=== PATIENT | female | born 1990 | race Caucasian/White ===

== ENCOUNTER 2024-07-14 16:27 | Observation (INO) | payer MEDICAID, SELFPAY ==
[2024-07-14] VITALS (8 sets, daily range): BP systolic 127–141; BP diastolic 72–92; PULSE 107–132; RESP 12–24; TEMP 36.6–39.5; O2SAT 94–100; BMI 23.5; BMI 22.4
--- NOTE | 2024-07-14 17:12 | EKG12_ITS ---
Test Reason : Blood Pressure : */* mmHG Vent. Rate : 109 BPM Atrial Rate : 109 BPM P-R Int : 130 ms QRS Dur : 92 ms QT Int : 320 ms P-R-T Axes : 37 45 34 degrees QTcB Int : 430 ms Sinus tachycardia Otherwise normal ECG Confirmed by CARLOS LANG, ELAN ([id number]), continuity editor LUKAS OROZCO ([id number]) on 07/15/2024 9:46:14 AM Referred By: Confirmed By: ELAN GONZALEZ MD
--- NOTE | 2024-07-14 17:12 | EX.ED.DYSGE1 ---
HPI History of Present Illness Chief Complaint: General Illness Informant: patient and parent Narrative Narrative: Presents here with father 1 week cough over the last 2 weeks symptoms worsening with exertional dyspnea. No fevers. History of anemia she reports hospitalized 18 months ago in [place] is given blood however did not follow-up. No history endoscopies. She is on iron supplements by her PCP. No urinary symptoms. No recent travel, surgeries, immobilizations. No history of PE or DVT. Denies nausea or vomiting.Denies any chest tightness with ambulation. Denies any leg pains recently. Does report history of hypothyroidism however is not taking her medications in a few months. Denies any black or bloody stools. Patient has not had a menstrual period in a year. She has the Mirena. Prior similar symptoms: No PFSH PFSH Medical History Anemia Hypertension Home Medications ?Medication ?Instructions ?Recorded ?Last Taken ?Type chlorpheniramine-pseudoephedrine 2 10 ml PO Q6H 07/14/24 07/14/24 History mg-30 mg/5 mL oral liquid (LoHist - D) ferrous sulfate 325 mg (65 mg 325 mg PO BID 07/14/24 Unknown History iron) tablet (FeroSul) Allergy/AdvReac Type Severity Reaction Status Date / Time No Known Allergies Allergy Verified 07/14/24 21:06 Surgical History History of appendectomy Social History Smoking Status: Current some day smoker tobacco type: cigarettes ROS ROS ED Constitutional Constitutional ED: Denies chills, fever(s) or sweats ENT ENT ED: Denies sore throat Cardiovascular Cardiovascular: Denies chest pain, leg edema, palpitations or racing heartbeat Respiratory/Chest Respiratory/Chest: Reports cough, dyspnea and dyspnea on exertion Gastrointestinal Gastrointestinal: Denies abdominal pain, diarrhea, nausea or vomiting Genitourinary Genitourinary ED: Denies dysuria, hematuria or urinary frequency Musculoskeletal Musculoskeletal: Denies back pain, extremity pain or neck pain Integumentary Denies rash or wounds Neurologic Neurologic: Denies headache(s), paresthesias or weakness EXAM Physical Exam Const Vital Signs: 07/14/24 16:27 07/14/24 16:57 07/14/24 18:27 Temperature 98.7 F Temperature Source Oral Pulse Rate 132 H 123 H Respiratory Rate 16 12 Respiratory Effort Normal Respiratory Pattern Normal Blood Pressure 139/92 H 141/91 H Blood Pressure Mean 107 107 Blood Pressure Source Blood Pressure Position Blood Pressure Location Pulse Ox 98 97 Oxygen Delivery Method Room Air Room Air 07/14/24 20:04 07/14/24 20:05 07/14/24 20:51 Temperature 97.8 F 103.1 F H Temperature Source Oral Pulse Rate 115 H 114 H 117 H Respiratory Rate 24 H 24 H 18 Respiratory Effort Respiratory Pattern Blood Pressure 132/76 H 133/76 H 136/80 H Blood Pressure Mean 94 95 98 Blood Pressure Source Monitor Blood Pressure Position Supine Blood Pressure Location Right Arm Pulse Ox 100 100 96 Oxygen Delivery Method Room Air Room Air Positive well nourished and well developed General Appearance ED: well developed and NAD HEENT Reports moist mucous membranes normocephalic and atraumatic Eyes General Eye ED: Yes normal appearance of both eyes and pale conjunctiva Neck full ROM Chest Wall Chest: Negative for tenderness Resp normal respiratory effort and normal air movement Effort and Inspection: symmetric chest movement; Negative for respiratory distress Cardio regular rhythm and no murmurs Rate: tachycardic Peripheral Pulses: pulses 2+ throughout GI normal to inspection, nondistended, normoactive bowel sounds and non-tender Palpation: Negative for guarding or rebound tenderness present Extremity normal to inspection General Extremety ED: Negative for edema or tenderness General Extremity: Negative for edema Neuro oriented x3, CN's II-XII intact bilaterally and no sensory deficits noted Sensorium / Orientation: awake and alert Skin no rashes or lesions noted and no wounds MDM MDM MDM Narrative Medical decision making narrative: Interventions / MDM: Differential diagnosis: Symptomatic anemia, exertional dyspnea Diagnosis considered but do not suspect: N/A My EKG interpretation: Sinus rate of 109, no ST or T wave changes. Imaging independently reviewed and interpreted by myself: 1 view chest x-ray: No acute process. External documents reviewed: N/A Test considered but not ordered:N/A ED course: Tachycardic on arrival with exertional dyspnea. Increasing cough. No fevers or myalgias. Will check EKG labs including D-dimer and thyroid levels. 1840: Labs returned hemoglobin 5.0. Rectal exam no hemorrhoids no gross bleeding slight brown stools Hemoccult sent. BUN 6 creatinine 0.64. No menstrual period for last year. TSH less than 5 Free T41.7. D-dimer 2.16. However at this time with her anemia, is likely the cause of her tachycardia and dyspnea with exertion symptoms. Ordered for 1 view chest x-ray for screening. I ordered for 2 units of blood to be transfused. Consent obtained. I discussed with hospitalist, Dr. Soto for admission for symptomatic anemia. Secondary unclear findings on her anemia requested CT scan performed the ED. Perform CT chest abdomen pelvis with contrast for further evaluation. Patient admitted to PCU for further management. Prior to final read I reviewed the patient's imaging there is no PE however concern for bibasilar infiltrate this was relayed to hospitalist we will start antibiotics inpatient. She is on room air no distress. Re-evaluation: stable Disposition discussed with patient/family/significant other: Patient Case discussed with consulting clinician: Hospitalist This note was generated with [employer] dictation software. It may contain incorrect words, spelling, and punctuation that were not noted in checking the note before signing. Lab Data Attestation: I reviewed the patient's lab results. Labs: Laboratory Results - last 24 hr 07/14/24 07/14/24 07/14/24 12: 17:52 18:15 WBC 11.3 H RBC 3.07 L Hgb 5.0 L* Hct 20.4 L MCV 66.4 L MCH 16.3 L MCHC 24.5 L RDW Std Deviation 54.2 H RDW Coeff of Nya 23.9 H Plt Count 572 H MPV 9.1 Immature Gran % (Auto) 0.900 Neut % (Auto) 74.9 H Lymph % (Auto) 14.6 L [place] % (Auto) 7.5 Eos % (Auto) 1.7 Baso % (Auto) 0.4 Absolute Neuts (auto) 8.4 H Absolute Lymphs (auto) 1.64 Nucleated RBC % 0.4 Differential Comment SCANNED Diff Path Review May foll Polychromasia 1+ Anisocytosis 2+ Microcytosis RARE Spherocytes RARE H Tear Drop Cells RARE Ovalocytes 1+ PT 14.5 INR 1.1 APTT 29.2 D-Dimer Quant (PE/DVT) 2.16 H* Sodium 139 Potassium 4.2 Chloride 111 H Carbon Dioxide 24.0 Anion Gap 5 BUN 6 L Creatinine 0.64 Estim Creat Clear Calc 115.95 Est GFR (MDRD) Af Amer 138 Est GFR (MDRD) Non-Af 114 BUN/Creatinine Ratio 9.4 L Glucose 99 Calcium 8.5 Iron 14 L TIBC 383 Iron Saturation 3.7 L Ferritin 10 Total Bilirubin 0.30 AST 15 ALT 15 Alkaline Phosphatase 79 Total Protein 7.0 Albumin 2.5 L Globulin 4.5 H Albumin/Globulin Ratio 0.6 L Vitamin B12 740 Folate 15.90 TSH < 0.005 L Free T4 1.73 H Serum , Qual NEGATIVE Blood Type Cancelled Antibody Screen Cancelled Crossmatch 07/14/24 19:20 WBC RBC Hgb Hct MCV MCH MCHC RDW Std Deviation RDW Coeff of Nya Plt Count MPV Immature Gran % (Auto) Neut % (Auto) Lymph % (Auto) [place] % (Auto) Eos % (Auto) Baso % (Auto) Absolute Neuts (auto) Absolute Lymphs (auto) Nucleated RBC % Differential Comment Diff Path Review Polychromasia Anisocytosis Microcytosis Spherocytes Tear Drop Cells Ovalocytes PT INR APTT D-Dimer Quant (PE/DVT) Sodium Potassium Chloride Carbon Dioxide Anion Gap BUN Creatinine Estim Creat Clear Calc Est GFR (MDRD) Af Amer Est GFR (MDRD) Non-Af BUN/Creatinine Ratio Glucose Calcium Iron TIBC Iron Saturation Ferritin Total Bilirubin AST ALT Alkaline Phosphatase Total Protein Albumin Globulin Albumin/Globulin Ratio Vitamin B12 Folate TSH Free T4 Serum , Qual Blood Type A POSITIVE Antibody Screen NEGATIVE Crossmatch See Detail Radiography Diagnostic Testing: Clinical Impression(s) from Imaging Studies Chest X-Ray 07/14/24 18:54 IMPRESSION: No acute radiographic abnormalities. Electronically Signed: Pranav Jorgensen MD at 19:32 EST , Abdomen/Pelvis CT 07/14/24 19:48 IMPRESSION: Findings suspicious for small bowel obstruction with no obvious transition point. Infectious versus inflammatory enteritis. Acute left pyonephritis. Electronically Signed: Pranav Jorgensen MD at 20:47 EST , ADDENDUM: 07/14/241 IMPRESSION: Findings suspicious for small bowel obstruction with no obvious transition point. Infectious versus inflammatory enteritis. Acute left pyonephritis. N.B. : Nancy Ashley RN, confirmed on 07/14/2024 22:04:09 (ET) that the healthcare facility has received the radiology report. Electronically Signed: Pranav Jorgensen MD at 20:47 EST , Chest CTA 07/14/24 19:48 IMPRESSION: Bibasilar pneumonia. Electronically Signed: Pranav Jorgensen MD at 20:43 EST , Discharge Plan Dx/Rx/DC Orders Clinical Impression: Severe anemia, Hyperthyroidism, Bilateral pneumonia, Symptomatic anemia Disposition Disposition: Acute Care Hospital [facility] Discharge Date/Time: 07/14/24 20:40
[2024-07-14 18:00] LABS: Absolute Lymphocyte Count 1.64 X10^3/uL (0.83-4.51); Absolute Neutrophil Count 8.4 X10^3/uL (2.0-7.7); Basophil# 0.04 X10^3/uL; Basophil% 0.4 % (0-1); Eosinophil# 0.19 X10^3/uL; Eosinophils% 1.7 % (0-5); Hematocrit 20.4 % (37-47); Lymphocyte # 1.64 X10^3/ul (0.83-4.51); Lymphocyte % 14.6 % (19-41); Mean Corp Hgb Conc 24.5 g/dL (32-36); Mean Corpuscular Hgb 16.3 pg (27.0-32.0); Mean Corpuscular Volume 66.4 fL (81-99); Mean Platelet Vol. 9.1 fl (6.2-12.0); Monocyte# 0.85 X10^3/uL; Monocyte% 7.5 % (0-10); NRBC Flagged by Analyzer 0.4 % (0-5); Neutrophil # 8.44 X10^3/uL (2.7-7.7); Neutrophil % 74.9 % (47-70); POSITIVE COUNT YES; POSITIVE MORPHOLOGY YES; Platelet Count 572 K/mm3 (150-450); RBC Distribution Width CV 23.9 % (11.6-14.6); RBC Distribution Width SD 54.2 fl (35.1-43.9); Red Blood Count 3.07 M/mm3 (4.2-5.4); White Blood Count 11.3 K/mm3 (4.4-11.0)
[2024-07-14 18:09] LABS: Internal QC Validated? YES +Cl - CLEAR BKGD; Pregnancy, Serum, hCG Quali. NEGATIVE Negative
[2024-07-14 18:25] LABS: ALB/GLOB Ratio 0.6 RATIO (0.9-2.4); AST(SGOT) 15 U/L (15-37); Alanine Aminotransfer ALT/SGPT 15 U/L (13-56); Albumin, Serum 2.5 g/dL (3.2-5.0); Alkaline Phosphatase 79 U/L (45-117); Anion Gap 5 (5-15); BUN 6 mg/dL (7-18); BUN/Creat Ratio 9.4 RATIO (10-20); Calcium,Total 8.5 mg/dL (8.5-10.1); Chloride 111 mmol/L (98-107); Creatinine, Serum 0.64 mg/dL (0.55-1.02); EST Glomerular Filtration Rate 114 mL/min (>60); Est Glom Filt Rate - Afr Amer 138 mL/min (>60); Estimated Creatinine Clearance 115.95 ml/min; Free T4 1.73 ng/dL (0.76-1.46); Globulin 4.5 g/dL (2.2-4.2); Glucose 99 mg/dL (74-106); Potassium 4.2 mmol/L (3.5-5.1); Sodium Level 139 mmol/L (136-145); Thyroid Stim Hormone (TSH) < 0.005 uIU/mL (0.358-3.740)
[2024-07-14 18:26] LABS: Differential Indicated SCAN CRITERIA MET
[2024-07-14 18:45] LABS: D-Dimer Quantitative (DVT/PE) 2.16 FEU/ug/m (0.27-0.49)
--- NOTE | 2024-07-14 18:54 | RAD_ITS ---
INDICATION: dyspnea EXAMINATION/TECHNIQUE: X-RAY - XR Chest 1 View COMPARISON: None. FINDINGS: The lungs are clear. The cardiomediastinal silhouette is unremarkable. No pleural effusion or pneumothorax. No acute osseous abnormalities. RAD/Chest 1 View (Portable) IMPRESSION: No acute radiographic abnormalities. Electronically Signed: Pranav Jorgensen MD at 19:32 EST ,
[2024-07-14 18:56] LABS: International Normalized Ratio 1.1; Prothrombin Time (Protime)PT. 14.5 SECONDS (11.7-14.9)
[2024-07-14 18:57] LABS: Partial Thromboplast Time 29.2 Seconds (24.1-36.2)
[2024-07-14 19:17] LABS: Vitamin B12 740 pg/mL (211-911)
[2024-07-14 19:28] LABS: Ferritin 10 ng/mL (8-252); Iron 14 ug/dL (50-170); Iron Binding Capacity,Total 383 ug/dL (250-450); PERCENT IRON SATURATION 3.7 % (15.0-55.0)
[2024-07-14 19:31] LABS: Anisocytosis 2+; Differential Comment SCANNED; Ovalocyte 1+; Polychromasia 1+
[2024-07-14 19:33] LABS: Spherocyte RARE
[2024-07-14 19:36] LABS: Tear Drop Cell RARE
[2024-07-14 19:37] LABS: Microcytosis RARE
--- NOTE | 2024-07-14 19:45 | HP.PCM.HOS_ITS ---
HPI - General General Date of Admission: 07/14/24 Date of Service: 07/14/24 Chief Complaint: Worsening EASON x 2 Weeks. HPI Narrative MYLES VENEGAS, is a 34 F with a past medical history of hypothyroidism; not taking medications for the past few months, tobacco abuse, history of IVDA with heroin and methamphetamines with a history of viral hepatitis, history of Mirena IUD; still in place, history of appendectomy and chronic severe LORENA; with history of being transfused 2 units of PRBC's at [facility] ~18 months ago - but she never followed up who presents to [facility] ER complaining of worsening EASON. Ms. Venegas reports her acute symptoms began approximately 2 weeks prior to admission with increasing dyspnea on exertion. She was noted to be upset about having to have labs drawn so she was reluctant to participate in answering questions during the interview making her a suboptimal historian with her father in the room providing needed emotional support but also not providing additional information. She denies recent bleeding or traumatic injury. She denies a history of colonoscopy and said she has not seen her PCP in over a year. She also denies associated fever, chills, nausea, vomiting, chest pain, history of VTE, black/bloody stools, dysuria or hematuria but she does admit she has not had a period for over a year since her Mirena IUD was placed. In the ER she was noted to have laboratory evidence of Severe Anemia with a critically low hemoglobin of 5 g/dL present on admission in the setting of Chronic Severe LORENA with MCV of 66.4 fL and low iron saturation of 3.7% along with low iron level 4 ug/dL requiring transfusion of PRBC's and IV Venofer complicated by elevated d-dimer of 2.16 present on admission prompting CTA of the chest, abdomen and pelvis with subsequent CT evidence of Bibasilar Pneumonia and Pyelonephritis of the Left kidney compounded by Inflammatory vs Infectious Enteritis along with laboratory evidence of Hyperthyroidism; with undetectable TSH and FT4 of 1.73 ng/dL in the setting of known previous IVDA with Heroin and Methamphetamines plus Tobacco Abuse and she was then admitted to the PCU for ongoing care for a stay that is expected to extend beyond 2 midnights. [facility] Medical History Anemia Hypertension Home Medications ?Medication ?Instructions ?Recorded ?Last Taken ?Type chlorpheniramine-pseudoephedrine 2 10 ml PO Q6H 07/14/24 07/14/24 History mg-30 mg/5 mL oral liquid (LoHist - D) ferrous sulfate 325 mg (65 mg 325 mg PO BID 07/14/24 Unknown History iron) tablet (FeroSul) Allergy/AdvReac Type Severity Reaction Status Date / Time No Known Allergies Allergy Verified 07/14/24 21:06 Surgical History History of appendectomy Social History Smoking Status: Current some day smoker tobacco type: cigarettes ROS ROS Narrative Review of Systems: Constitutional: Patient admits to EASON and generalized weakness but she denies fever or chills. Eyes: Patient denies changes in vision or discharge from eyes. ENT: Patient denies runny nose, sore throat or ear pain. Resp: Patient admits to EASON but she denies cough. CV: Patient denies chest pain, palpitations or heart racing. GI: Patient denies abdominal pain, nausea, vomiting, diarrhea or constipation. : Patient denies dysuria or hematuria. MSK: Patient admits to generalized weakness but she denies arthralgias or myalgias. Skin: Patient admits to pallor but she denies rash, abscess or jaundice. Psych: Patient denies symptoms of uncontrolled depression or anxiety. Neuro: Patient denies headache, paresthesias or focal neurologic deficits. Allergy: Patient denies lip swelling, tongue swelling or urticaria. Hematology: Patient denies blood in stools or urine and claims her LMP was ~1 year ago. Endocrinology: Patient denies polyuria, polydipsia or polyphagia. 14 point ROS otherwise negative except for positives noted above in HPI. Vital Signs Vital Signs Vital Signs: 07/14/24 16:27 07/14/24 16:57 07/14/24 18:27 Temperature 98.7 F Temperature Source Oral Pulse Rate 132 H 123 H Respiratory Rate 16 12 Respiratory Effort Normal Respiratory Pattern Normal Blood Pressure 139/92 H 141/91 H Blood Pressure Mean 107 107 Pulse Ox 98 97 Oxygen Delivery Method Room Air Room Air Weight Weight: 145 lb 12.8 oz Body Mass Index (BMI) 23.5 Physical Exam Const alert, oriented x3, no apparent distress, average body habitus and healthy appearing General Appearance: cooperative HEENT normocephalic, head/scalp atraumatic, hearing grossly normal bilaterally and moist oral mucous membranes Eyes PERRL and EOMs intact bilaterally Neck no lymphadenopathy and supple Resp normal respiratory effort, no retractions, no use of accessory muscles and clear to auscultation bilaterally Cardio regular rate and regular rhythm GI normal to inspection, nondistended, normoactive bowel sounds, soft to palpation, non-tender and non-distended Extremity normal to inspection, full ROM and no clubbing, cyanosis or edema Skin Skin Narrative: Patient has no evidence of rash, abscess or jaundice. Neuro oriented x3, CN's II-XII intact bilaterally, moves all extremities and no focal motor deficits Sensorium / Orientation: awake, alert, oriented to person, oriented to place and oriented to time Speech: speech normal Psych affect normal Results Medical Records Data Attestation: I reviewed the patient's medical records Lab / Micro Data Attestation: I reviewed the patient's lab results. 07/15/24 05:23 07/15/24 05:23 Labs: Laboratory Results - last 24 hr 07/14/24 12:26: Blood Type Cancelled, Antibody Screen Cancelled 07/14/24 17:52: WBC 11.3 H, RBC 3.07 L, Hgb 5.0 L*, Hct 20.4 L, MCV 66.4 L, MCH 16.3 L, MCHC 24.5 L, RDW Std Deviation 54.2 H, RDW Coeff of Nya 23.9 H, Plt Count 572 H, MPV 9.1, Immature Gran % (Auto) 0.900, Neut % (Auto) 74.9 H, Lymph % (Auto) 14.6 L, [place] % (Auto) 7.5, Eos % (Auto) 1.7, Baso % (Auto) 0.4, A bsolute Neuts (auto) 8.4 H, Absolute Lymphs (auto) 1.64, Nucleated RBC % 0.4, Differential Comment SCANNED, Diff Path Review May foll, Polychromasia 1+, Anisocytosis 2+, Microcytosis RARE, Spherocytes RARE H, Tear Drop Cells RARE, Ovalocytes 1+, Sodium 139, Potassium 4.2, Chloride 111 H, Carbon Dioxide 24.0, Anion Gap 5, BUN 6 L, Creatinine 0.64, Estim Creat Clear Calc 115.95, Est GFR (MDRD) Af Amer 138, Est GFR (MDRD) Non-Af 114, BUN/Creatinine Ratio 9.4 L, Glucose 99, Calcium 8.5, Iron 14 L, TIBC 383, Iron Saturation 3.7 L, Ferritin 10, Total Bilirubin 0.30, AST 15, ALT 15, Alkaline Phosphatase 79, Total Protein 7.0, Albumin 2.5 L, Globulin 4.5 H, Albumin/Globulin Ratio 0.6 L, Vitamin B12 740, Folate 15.90, TSH < 0.005 L, Free T4 1.73 H, Serum , Qual NEGATIVE 07/14/24 18:15: PT 14.5, INR 1.1, APTT 29.2, D-Dimer Quant (PE/DVT) 2.16 H* Micro: Microbiology 07/14/24 18:41 Stool Stool Occult Blood (STU) - Final Imaging Radiology Impression Chest X-Ray 07/14/24 18:54 IMPRESSION: No acute radiographic abnormalities. Electronically Signed: Pranav Jorgensen MD at 19:32 EST , - [facility] Imaging Services [facility] [address] [place], [place] [id number] CTA Chest W/WO Contrast MR#: [id number] Acct: [id number] Name: MYLES VENEGAS Rep #: [id number] : 1990 F 34 From: Pranav Jorgensen MD PCP: Care Physician,No Primary Status: ADM IN Study: CTA Chest W/WO Contrast Date of Exam: 07/14/24 Exam# [id number] Ordering Dr: Vj Ruiz DO INDICATION: sob EXAMINATION: CTA Chest WO/W Contrast Injection TECHNIQUE: Helically acquired images were obtained of the chest following administration of IV contrast. A radiation dose optimization technique was used for this scan. 3D postprocessing images including MIPS were reviewed. IV Contrast dosage and agent: IV 100mL Isovue-370 COMPARISON: None. FINDINGS: Lungs: Bibasilar consolidations. Mediastinum: The cardiomediastinal silhouette is not enlarged. No mediastinal, hilar or axillary adenopathy. The thoracic aorta is unremarkable. No obvious filling defect seen within the visualized pulmonary arteries. Pleura: Unremarkable Bones/Soft tissues: Mild scattered degenerative changes of the visualized spine. Upper abdomen: Refer to CT abdomen pelvis report same date. CT/CTA Chest W/WO Contrast IMPRESSION: Bibasilar pneumonia. Electronically Signed: Pranav Jorgensen MD at 20:43 EST , - [facility] Imaging Services [address] [place] [id number] Abdomen/Pelvis W IV Cont ONLY MR#: [id number] Acct: [id number] Name: MYLES VENEGAS Rep #: [id number] : 1990 F 34 From: Pranav Jorgensen MD PCP: Care Physician,No Primary Status: ADM IN Study: Abdomen/Pelvis W IV Cont ONLY Date of Exam: 07/14/24 Exam# [id number] Ordering Dr: Vj Ruiz DO ACR Level 3 findings have been noted. An addendum which confirms receipt of the report will follow. INDICATION: anemia EXAMINATION: CT Abdomen And Pelvis W/ Contrast Injection TECHNIQUE: Helically acquired images were obtained of the abdomen and pelvis after IV contrast. A radiation dose optimization technique was used for this scan. IV Contrast dosage and agent: IV 100mL Isovue-370 Oral contrast: None. COMPARISON: None. FINDINGS: Visualized lung bases: Refer to CT chest report same date. Liver: Unremarkable Gallbladder: Unremarkable Spleen: Unremarkable Pancreas: Unremarkable Adrenal Glands: Unremarkable Kidneys: Striated nephrogram appearance of the left kidney. Vasculature: Unremarkable GI Tract: A few proximal small bowel loops demonstrate circumferential wall thickening with minimal surrounding fat stranding. There are multiple dilated loops of small bowel measuring up to 3.8 cm in diameter. No obvious transition point. Lymphadenopathy: None Peritoneum: No ascites. Bladder: Unremarkable Reproductive organs: Unremarkable Bones/Soft tissues: No suspicious osseous or soft tissue lesions CT/Abdomen/Pelvis W IV Cont ONLY IMPRESSION: Findings suspicious for small bowel obstruction with no obvious transition point. Infectious versus inflammatory enteritis. Acute left pyonephritis. Electronically Signed: Pranav Jorgensen MD at 20:47 EST , Assessment & Plan Assessment/Plan (1) Severe anemia: (2) History of iron deficiency anemia: (3) Bilateral pneumonia: QUALIFIERS: Lung location: lower lobe of lung Pneumonia type: due to unspecified organism Qualified Code(s): J18.9 - Pneumonia, unspecified organism (4) Pyelonephritis of left kidney: (5) Enteritis: (6) History of intravenous drug abuse: (7) Medical non-compliance: (8) Hyperthyroidism: (9) D-dimer, elevated: (10) Tobacco abuse: PLAN: Plan 1. Severe Anemia of 5 g/dL present on admission requiring transfusion - Admit to PCU. Give 2U PRBC's and then recheck CBC two hours after transfusion has been completed with goal to have hemoglobin of >7 g/dL. 2. Severe Chronic LORENA with MCV of 66.4 fL and low iron saturation of 3.7% and low iron level 4 ug/dL in the setting of previous admission to [facility] ~18 month ago when she was transfused with 2 units or PRBC's with patient subsequently not following up complicating #1 - Proceed with transfusion of 2 units of PRBC's noted above plus give IV iron with Venofer 200 mg IV once per protocol for severe iron deficiency. 3. Bibasilar Pneumonia evident on CTA of chest this admission consistent with suspected CAP compounding #1 & #2 - Start empiric IV Rocephin and IV Azithromycin and await culture and sensitivity data. Check urinary antigens for Streptococcus pneumonia and Legionella. Give Tylenol prn for [id number] (level 1-5/10) pain or fever. Give IV morphine prn for severe (level 6-10/10) pain. 4. Acute Pyelonephritis of the Left kidney evident on CTA abdomen and pelvis this admission medical complexity of #1 - #3 - Patient started on IV Rocephin for #3. Check UA C&S. 5. Acute Infectious vs. Inflammatory Enteritis evident on CTA of abdomen and pelvis this admission adding to the burden of disease outlined from #1 - #4 - Check stools studies to determine etiology and start enteric precautions until infectious cause ruled out. 6. History of IVDA with Heroin and Methamphetamines with history of Viral Hepatitis and labile emotional state and Medical Noncompliance - Patient did not admit to drug abuse but information was discovered in spite of the patient's and her father's deliberate omission. Check UDS to confirm suspicion of ongoing illicit drug use. We will watch for closely for signs and symptoms of withdrawal. Check HIV screen. Finally, we will check echocardiogram to evaluate for possible vegetations with her numerous simultaneous infections outlined from #1- #5. 7. Hyperthyroidism; evidenced by undetectable TSH and FT4 of 1.73 ng/dL adding to the pathology outlined from #1 - #6 - Check Thyroid Ultrasound to evaluate for pathologic lesions. Patient will likely need endocrinology consultation as outpatient. 8. Elevated d-dimer of 2.16 present on admission - CTA of chest this admission negative for PE but positive for bilateral pneumonia outlined in #3. 9. Tobacco Abuse - Tobacco Cessation will be strongly encouraged with Nicotine patch offered to control cravings. 10. History of appendectomy - Noted. 11. DVT prophylaxis - SCD's only with possible occult bleeding contributing to #1 & #2. Total time: Approximately (but not less than) 75 minutes. Charges/Coding Visit Charges Inpatient E&M: 30207 Init Hosp L3
--- NOTE | 2024-07-14 19:48 | CT_ITS ---
INDICATION: anemia EXAMINATION: CT Abdomen And Pelvis W/ Contrast Injection TECHNIQUE: Helically acquired images were obtained of the abdomen and pelvis after IV contrast. A radiation dose optimization technique was used for this scan. IV Contrast dosage and agent: IV 100mL Isovue-370 Oral contrast: None. COMPARISON: None. FINDINGS: Visualized lung bases: Refer to CT chest report same date. Liver: Unremarkable Gallbladder: Unremarkable Spleen: Unremarkable Pancreas: Unremarkable Adrenal Glands: Unremarkable Kidneys: Striated nephrogram appearance of the left kidney. Vasculature: Unremarkable GI Tract: A few proximal small bowel loops demonstrate circumferential wall thickening with minimal surrounding fat stranding. There are multiple dilated loops of small bowel measuring up to 3.8 cm in diameter. No obvious transition point. Lymphadenopathy: None Peritoneum: No ascites. Bladder: Unremarkable Reproductive organs: Unremarkable Bones/Soft tissues: No suspicious osseous or soft tissue lesions Bones/Soft tissues: No suspicious osseous or soft tissue lesions CT/Abdomen/Pelvis W IV Cont ONLY IMPRESSION: Findings suspicious for small bowel obstruction with no obvious transition point. Infectious versus inflammatory enteritis. Acute left pyonephritis. Electronically Signed: Pranav Jorgensen MD at 20:47 EST ,
--- NOTE | 2024-07-14 19:48 | CT_ITS ---
INDICATION: sob EXAMINATION: CTA Chest WO/W Contrast Injection TECHNIQUE: Helically acquired images were obtained of the chest following administration of IV contrast. A radiation dose optimization technique was used for this scan. 3D postprocessing images including MIPS were reviewed. IV Contrast dosage and agent: IV 100mL Isovue-370 COMPARISON: None. FINDINGS: Lungs: Bibasilar consolidations. Mediastinum: The cardiomediastinal silhouette is not enlarged. No mediastinal, hilar or axillary adenopathy. The thoracic aorta is unremarkable. No obvious filling defect seen within the visualized pulmonary arteries. Pleura: Unremarkable Bones/Soft tissues: Mild scattered degenerative changes of the visualized spine. Upper abdomen: Refer to CT abdomen pelvis report same date. CT/CTA Chest W/WO Contrast IMPRESSION: Bibasilar pneumonia. Electronically Signed: Pranav Jorgensen MD at 20:43 EST ,
--- NOTE | 2024-07-14 20:01 | US_ITS ---
STUDY: THYROID ULTRASOUND REASON FOR EXAM: Female, 34 years old. Hyperthyroid; evaluate for nodule or mass. TECHNIQUE: Ultrasound evaluation of the thyroid was performed with real-time and static harman-scale imaging. COMPARISON: CT of the chest 07/14/2024 FINDINGS: RIGHT LOBE: The right lobe of the thyroid gland measures 6.4 x 2.9 x 2.8 cm. There is a homogeneous echotexture. Nodule 1:53 x 26 x 25 mm mixed cystic and solid isoechoic wider than tall ill-defined marginated nodule with no echogenic foci (TR 3) occupying the entire right lobe for which ultrasound-guided biopsy is recommended. LEFT LOBE: The left lobe of the thyroid gland measures 5.6 x 1.4 x 1.4 cm. There is a homogeneous echotexture. Nodule 2:15 x 12 x 10 mm mixed cystic and solid isoechoic wider than tall smoothly marginated nodule with no echogenic foci (TR3) in the superior left lobe and follow-up ultrasound is recommended in 1 year. Nodule 3:10 x 11 x 7 mm solid hypoechoic wider than tall smoothly marginated nodule with no echogenic foci (TR 4) in the mid left lobe and follow-up ultrasound is recommended in 1 year. Nodule 4:14 x 6 x 7 mm solid hypoechoic wider than tall smoothly marginated nodule with no echogenic foci (TR 4) in the inferior left lobe and follow-up ultrasounds recommended one-year period ISTHMUS: The isthmus measures 2 mm thick. Nodule 5:30 x 28 x 15 mm solid isoechoic wider than tall ill-defined margin nodule and no echogenic foci (TR 3) in the right side of the isthmus and ultrasound-guided biopsy is recommended.. The regional lymph nodes are normal. US/Thyroid IMPRESSION: Multinodular thyroid gland. Ultrasound-guided biopsy of dominant nodules in the right lobe and right side of the isthmus is recommended. Follow-up ultrasound is recommended in 1 year. Electronically Signed: Harpreet Flood MD at 18:11 EST ,
[2024-07-14] MEDS: Acetaminophen 325 MG Tablet 650 MG PO (21:41)
[2024-07-14] MEDS: Pantoprazole Sodium 40 MG in 0.9% Normal Saline (100mL MB+) 100 ML 330 MG IV (22:41)
[2024-07-14 22:55] LABS: Lactic Acid 2.1 mmol/L (0.4-1.9)
[2024-07-14] MEDS: Lactobacillis Acidophilus 1 CAP PO (22:58)
[2024-07-14] MEDS: Ceftriaxone 1 GM/50 ML BAG IV (23:05)
[2024-07-15] VITALS (21 sets, daily range): BP systolic 112–138; BP diastolic 76–92; PULSE 90–105; RESP 15–22; TEMP 36.6–37.7; O2SAT 96–100; BMI 24.3
[2024-07-15] MEDS: Azithromycin 500 MG in 0.9% Normal Saline (250mL Bag) 250 ML 250 MG IV ×2 (00:01→10:06)
[2024-07-15] MEDS: 0.9% Normal Saline (1000mL) 1,000 ML 100 ML IV (00:04)
[2024-07-15] MEDS: DiphenhydrAMINE 12.5 MG/5 ML UDC PO ×4 (00:08→17:20)
--- NOTE | 2024-07-15 00:48 | ECHOD_ITS ---
Reason For Study: OTHER Procedure This was a 2D Doppler, Color Flow transthoracic echocardiogram. Exam performed portable in patient room. Left Ventricle Normal LV size. Left ventricular systolic function is normal. The left ventricular ejection fraction is 60 %. No regional wall motion abnormalities noted. Right Ventricle Normal RV size. Normal systolic function. Atria Normal left atrium. Normal right atrium. Mitral Valve Normal mitral valve. Tricuspid Valve Normal tricuspid valve. Mild tricuspid valve insufficiency. Aortic Valve Normal aortic valve. Pulmonic Valve Normal pulmonic valve. Great Vessels Normal aortic root. The pulmonary artery is normal size. Normal inferior vena cava. Pericardium/Pleural No pericardial effusion. MMode/2D Measurements & Calculations LVIDd: 4.6 cm IVSd: 1.1 cm LVOT diam: 2.2 cm LVIDs: 4.1 cm LVPWd: 1.4 cm LVOT area: 3.8 cm2 RVDd: 3.9 cm FS: 10.1 % LAV(MOD-bp): 65.6 ml LVAd ap4: 35.4 cm2 SV(MOD-sp4): 61.6 ml LAV(MOD-bp) Indexed: 37.1 ml/m2 LVLd ap4: 8.8 cm SI(MOD-sp4): 34.8 ml/m2 LAV(MOD-sp2): 87.6 ml EDV(MOD-sp4): 117.1 ml LAV(MOD-sp4): 47.2 ml EDV(sp4-el): 121.3 ml LVAs ap4: 22.2 cm2 LVLs ap4: 7.4 cm ESV(MOD-sp4): 55.5 ml ESV(sp4-el): 56.5 ml EF(MOD-sp4): 52.6 % EF(sp4-el): 53.4 % SV(sp4-el): 64.7 ml LA A4 area: 16.6 cm2 RA A4 area: 12.5 cm2 Time Measurements MV dec time: 0.12 sec Doppler Measurements & Calculations MV E max dominick: 135.7 cm/sec Lat Peak E' Dominick: 9.8 cm/sec Med Peak E' Dominick: 6.7 cm/sec MV A max dominick: 109.8 cm/sec E/E' lat: 13.8 E/E' med: 20.2 MV E/A: 1.2 MV V2 max: 133.4 cm/sec Ao V2 max: 176.7 cm/sec MV max P.1 mmHg MV dec slope: 1220 cm/sec2 Ao max P.5 mmHg MV V2 mean: 100.8 cm/sec Ao V2 mean: 124.2 cm/sec MV mean P.4 mmHg Ao mean P.9 mmHg MV V2 VTI: 31.9 cm Ao V2 VTI: 32.6 cm AV (velocity ratio): 0.84 MVA(VTI): 3.3 cm2 MARY BETH(I,D): 3.2 cm2 MARY BETH(V,D): 3.2 cm2 LV V1 max: 146.1 cm/sec SV(LVOT): 104.5 ml PA V2 max: 118.2 cm/sec LV V1 max P.5 mmHg PA V2 mean: 83.6 cm/sec LV V1 mean P.3 mmHg LV V1 mean: 110.3 cm/sec LV V1 VTI: 27.3 cm ECHO/Echo Complete Interpretation Summary Normal LV size. Left ventricular systolic function is normal. The left ventricular ejection fraction is 60 %. Structurally normal valves. Ordering Physician: Ike Valenzuela Referring Physician: VALENTIN PCP Performed By: Kira Tapia RCS
[2024-07-15 00:56] LABS: Bacteria 0 SEEN /hpf (None Seen); Mucous, Urine 0 SEEN /hpf (<or=2+); Red Blood Cells-Urine 0 SEEN /hpf (0-5); Squamous Epithelial Cells - UA 0 SEEN /hpf (5-10); White Blood Cells 0 SEEN /hpf (0-5)
[2024-07-15 00:59] LABS: Color, Urine Yellow (Yellow); Glucose, Dipstick Normal (Normal); Ketone-Dipstick Negative (Negative); Leukocyte Esterase-Dipstick Negative /ul (Negative); Nitrite-Dipstick Negative (Negative); Occult Blood-Urine Negative /ul (Negative); Protein-Dipstick Negative (Negative); Specific Gravity, Urine 1.005 (1.002-1.030); Urine Bilirubin Dipstick Negative (Negative); Urine Clarity Clear (Clear); Urine Urobilinogen Normal (Normal)
[2024-07-15 01:21] LABS: Amphetamine Urine NEGATIVE (<1000 ng/mL); Barbiturate Urine NEGATIVE (< 200 ng/mL); Benzodiazepine Urine NEGATIVE (< 200 ng/mL); Cocaine Urine NEGATIVE (< 300 ng/mL); Ecstacy Urine NEGATIVE (< 500 ng/mL); Methadone Urine NEGATIVE (< 300 ng/mL); Opiates Urine NEGATIVE (< 300 ng/mL); PCP Urine NEGATIVE (< 25 ng/mL); THC Urine POSITIVE (< 50 ng/mL); Vista UDS pH Range 7
[2024-07-15 02:32] LABS: Reflex Lactate? Y
[2024-07-15 03:31] LABS: Hepatitis C Antibody Preliminary Reactive (Nonreactive)
[2024-07-15] MEDS: Sodium Ferric Gluconat 250 MG in 0.9% Normal Saline 250 ML 135 MG IV (04:29)
[2024-07-15 05:36] LABS: Absolute Lymphocyte Count 1.63 X10^3/uL (0.83-4.51); Absolute Neutrophil Count 7.4 X10^3/uL (2.0-7.7); Basophil# 0.04 X10^3/uL; Basophil% 0.4 % (0-1); Eosinophil# 0.15 X10^3/uL; Eosinophils% 1.5 % (0-5); Hematocrit 24.1 % (37-47); Hemoglobin 6.7 g/dL (12.0-15.0); Lymphocyte # 1.63 X10^3/ul (0.83-4.51); Lymphocyte % 16.2 % (19-41); Mean Corp Hgb Conc 27.8 g/dL (32-36); Mean Corpuscular Hgb 19.1 pg (27.0-32.0); Mean Corpuscular Volume 68.9 fL (81-99); Mean Platelet Vol. 8.7 fl (6.2-12.0); Monocyte# 0.79 X10^3/uL; Monocyte% 7.8 % (0-10); NRBC Flagged by Analyzer 0.4 % (0-5); Neutrophil # 7.38 X10^3/uL (2.7-7.7); Neutrophil % 73.2 % (47-70); POSITIVE MORPHOLOGY YES; Platelet Count 482 K/mm3 (150-450); RBC Distribution Width CV 26.3 % (11.6-14.6); RBC Distribution Width SD 63.2 fl (35.1-43.9); White Blood Count 10.1 K/mm3 (4.4-11.0)
[2024-07-15 05:41] LABS: Differential Indicated SCAN CRITERIA MET
[2024-07-15 05:58] LABS: ALB/GLOB Ratio 0.5 RATIO (0.9-2.4); AST(SGOT) 7 U/L (15-37); Alanine Aminotransfer ALT/SGPT 12 U/L (13-56); Albumin, Serum 2.3 g/dL (3.2-5.0); Alkaline Phosphatase 76 U/L (45-117); Anion Gap 4 (5-15); BUN 3 mg/dL (7-18); BUN/Creat Ratio 5.7 RATIO (10-20); Calcium,Total 8.5 mg/dL (8.5-10.1); Chloride 112 mmol/L (98-107); Creatinine, Serum 0.52 mg/dL (0.55-1.02); EST Glomerular Filtration Rate 142 mL/min (>60); Est Glom Filt Rate - Afr Amer 171 mL/min (>60); Estimated Creatinine Clearance 142.71 ml/min; Globulin 4.4 g/dL (2.2-4.2); Glucose 163 mg/dL (74-106); Magnesium 1.7 mg/dL (1.6-2.6); Phosphorus 2.4 mg/dL (2.5-4.9); Potassium 3.4 mmol/L (3.5-5.1); Protein, Total 6.7 g/dL (6.4-8.2); Sodium Level 139 mmol/L (136-145)
[2024-07-15 06:08] LABS: Lactic Acid 2.6 mmol/L (0.4-1.9)
[2024-07-15 06:28] LABS: Anisocytosis RARE
[2024-07-15] MEDS: Zinc Sulfate 50 mg zinc (220 mg) ORAL capsule PO (09:12)
[2024-07-15] MEDS: Ascorbic Acid 500 MG Tablet 1000 MG PO ×2 (09:12→17:18)
[2024-07-15] MEDS: Cholecalciferol (Vit D3) 125 MCG CAPSULE (5,000 UNITS) PO (09:12)
[2024-07-15] MEDS: Ferrous Sulfate 325 MG Tablet PO ×2 (09:13→17:18)
[2024-07-15] MEDS: Lactobacillis Acidophilus 1 CAP PO ×4 (09:13→21:06)
[2024-07-15] MEDS: Pantoprazole Sodium 40 MG in 0.9% Normal Saline (100mL MB+) 100 ML 330 MG IV ×2 (09:14→21:05)
[2024-07-15] MEDS: Ceftriaxone 1 GM/50 ML BAG IV (09:54)
[2024-07-15] MEDS: Acetaminophen 325 MG Tablet 650 MG PO (10:08)
[2024-07-15 11:35] LABS: Pathologist Review Reviewed
[2024-07-15 13:09] LABS: Hematocrit 26.7 % (37-47); Hemoglobin 7.6 g/dL (12.0-15.0)
[2024-07-15] MEDS: Ensure Plus High Protein 120 ML LIQUID PO ×2 (13:17→17:18)
--- NOTE | 2024-07-15 15:05 | CASEMGMT ---
RN?CM?BLOCK SEALER?CM?to room to meet with patient for initial transition planning/care coordination?assessment.?RN?CM?introduced self and role at [facility].? Pt voices understanding and consents to?assessment?at this time.? Pt resting in bed in no distress at this time.? Father @ bedside and pt agreeable to him being present during assessment. Pt is A/O at this time and answers all questions appropriately.?? Care providers, pharmacy, and demographics verified/updated at this time. Strata: 1 PCP: No PCP. Pt states she knows how to go on website to look-up who is in network and plans to do this after discharge. She denies needing assistance w/this. Specialists: none Preferred [facility]acy: [facility] Insurance: [employer] Prescription Benefit:?yes Living Will/HPOA:?Pt does not currently have LW/HCPOA and declines info at this time.? Pt made aware that she can contact as an out-pt and make appt in the future if she decides she would like to talk with someone about this or would like to utilize [facility] social work for advanced directive completion.?? LNOK: Parents, Rick and Opal Living Arrangements: Lives w/her BF in one-story home w/2 steps to enter. Independent. Transportation:?Neither pt nor her BF drive. Friends and family assist w/transportation. Father will take her home @ dc. DME: ? Denies using any DME and denies needs. HHC/SNF: No hx of either. No needs identified. Pt wishes to return home and states has no concerns with going home at time of discharge.? PLAN:??Home Shayla YANGN?RN?CM
--- NOTE | 2024-07-15 15:10 | PN.HOSP_ITS ---
Reason for Visit Reason for Visit: Diagnoses Anemia, unspecified (07/14/24) Thyrotoxicosis, unspecified without thyrotoxic crisis or storm (07/14/24) Pneumonia, unspecified organism (07/14/24) Noninfective gastroenteritis and colitis, unspecified (07/14/24) Tubulo-interstitial nephritis, not specified as acute or chronic (07/14/24) Other specified abnormal findings of blood chemistry (07/14/24) Tobacco use (07/14/24) Personal history of diseases of the blood and blood-forming organs and certain disorders involving the immune mechanism (07/14/24) Personal history of other specified conditions (07/14/24) Patient's noncompliance with other medical treatment and regimen due to unspecified reason (07/14/24) Subjective Subjective Patient was seen and examined today, her sister was in the room at the time of my examination. Patient is noncompliant with follow-up concerning her chronic anemia, she states she is she went through a thorough workup and they could find no reason for the anemia. Patient denies any evidence of rectal bleeding. Patient's hemoglobin this afternoon was 7.6. She had received 3 units of packed red blood cells. Objective Data Objective Data Vital Signs: Vital Signs Temp Pulse Resp BP Pulse Ox O2 Del Method 98.7 F 94 16 125/85 H 99 Room Air 07/15/24 10:12 07/15/24 10:12 07/15/24 10:12 07/15/24 10:12 07/15/24 10:12 07/15/24 10:12 Oxygen Delivery Method Room Air Weight: 68.2 kg Body Mass Index (BMI) 24.3 Intake & Output: Intake and Output for Last 24 Hours 07/13/24 07/14/24 07/15/24 23:59 23:59 23:59 Intake Total 160 / 160 3920 / 3920 Output Total 1100 / 1100 Balance 160 / 160 2820 / 2820 Lab / Micro Data 07/15/24 12:59 07/15/24 05:23 Labs: Laboratory Results - last 24 hr 07/14/24 12:26: Blood Type Cancelled, Antibody Screen Cancelled 07/14/24 17:52: WBC 11.3 H, RBC 3.07 L, Hgb 5.0 L*, Hct 20.4 L, MCV 66.4 L, MCH 16.3 L, MCHC 24.5 L, RDW Std Deviation 54.2 H, RDW Coeff of Nya 23.9 H, Plt Count 572 H, MPV 9.1, Immature Gran % (Auto) 0.900, Neut % (Auto) 74.9 H, Lymph % (Auto) 14.6 L, Walsh % (Auto) 7.5, Eos % (Auto) 1.7, Baso % (Auto) 0.4, A bsolute Neuts (auto) 8.4 H, Absolute Lymphs (auto) 1.64, Nucleated RBC % 0.4, Differential Comment SCANNED, Diff Path Review Reviewed, Polychromasia 1+, Anisocytosis 2+, Microcytosis RARE, Spherocytes RARE H, Tear Drop Cells RARE, Ovalocytes 1+, Sodium 139, Potassium 4.2, Chloride 111 H, Carbon Dioxide 24.0, Anion Gap 5, BUN 6 L, Creatinine 0.64, Estim Creat Clear Calc 115.95, Est GFR (MDRD) Af Amer 138, Est GFR (MDRD) Non-Af 114, BUN/Creatinine Ratio 9.4 L, Glucose 99, Calcium 8.5, Iron 14 L, TIBC 383, Iron Saturation 3.7 L, Ferritin 10, Total Bilirubin 0.30, AST 15, ALT 15, Alkaline Phosphatase 79, Total Protein 7.0, Albumin 2.5 L, Globulin 4.5 H, Albumin/Globulin Ratio 0.6 L, Vitamin B12 740, Folate 15.90, TSH < 0.005 L, Free T4 1.73 H, Serum , Qual NEGATIVE 07/14/24 18:15: PT 14.5, INR 1.1, APTT 29.2, D-Dimer Quant (PE/DVT) 2.16 H* 07/14/24 19:20: Blood Type A POSITIVE, Antibody Screen NEGATIVE, Crossmatch See Detail 07/14/24 19:20: Crossmatch See Detail 07/14/24 22:15: Lactic Acid 2.1 H*, Hepatitis C Antibody Preliminary Reactive H 07/15/24 00:49: Urine Color Yellow, Urine Clarity Clear, Urine pH 7.0, Ur Specific Romayor 1.005, Urine Protein Negative, Urine Glucose (UA) Normal, Urine Ketones Negative, Urine Occult Blood Negative, Urine Nitrite Negative, Urine Bilirubin Negative, Urine Urobilinogen Normal, Ur Leukocyte Esterase Negative, Urine RBC 0 SEEN, Urine WBC 0 SEEN, Ur Squamous Epith Cells 0 SEEN, Urine Bacteria 0 SEEN, Urine Mucus 0 SEEN, Urine Opiates Screen NEGATIVE, Urine Methadone Screen NEGATIVE, Ur Barbiturates Screen NEGATIVE, Ur Phencyclidine Scrn NEGATIVE, Ur Amphetamines Screen NEGATIVE, MDMA (Ecstasy) Screen NEGATIVE, U Benzodiazepines Scrn NEGATIVE, Urine Cocaine Screen NEGATIVE, U Cannabinoids Screen POSITIVE H, Ur Drug Screen Comment 07/15/24 05:23: WBC 10.1, RBC 3.50 L, Hgb 6.7 L, Hct 24.1 L, MCV 68.9 L, MCH 19.1 L, MCHC 27.8 L D, RDW Std Deviation 63.2 H, RDW Coeff of Nya 26.3 H, Plt Count 482 H, MPV 8.7, Immature Gran % (Auto) 0.900, Neut % (Auto) 73.2 H, Lymph % (Auto) 16.2 L, Walsh % (Auto) 7.8, Eos % (Auto) 1.5, Baso % (Auto) 0.4, Absolute Neuts (auto) 7.4, Absolute Lymphs (auto) 1.63, Nucleated RBC % 0.4, Anisocytosis RARE, Sodium 139, Potassium 3.4 L, Chloride 112 H, Carbon Dioxide 23.0, Anion Gap 4 L, BUN 3 L, Creatinine 0.52 L, Estim Creat Clear Calc 142.71, Est GFR (MDRD) Af Amer 171, Est GFR (MDRD) Non-Af 142, BUN/Creatinine Ratio 5.7 L, Glucose 163 H, Lactic Acid 2.6 H*, Calcium 8.5, Phosphorus 2.4 L, Magnesium 1.7, Total Bilirubin 0.50, AST 7 L, ALT 12 L, Alkaline Phosphatase 76, Total Protein 6.7, Albumin 2.3 L, Globulin 4.4 H, Albumin/Globulin Ratio 0.5 L 07/15/24 12:59: Hgb 7.6 L, Hct 26.7 L Micro: Microbiology 07/15/24 00:49 Urine, Clean Catch Legionella Antigen - Final 07/15/24 00:49 Urine, Clean Catch Streptococcus pneumoniae Antigen (M - Final 07/14/24 18:41 Stool Stool Occult Blood (STU) - Final Radiography Diagnostic Testing: Radiology Impression Chest X-Ray 07/14/24 18:54 IMPRESSION: No acute radiographic abnormalities. Electronically Signed: Pranav Jorgensen MD at 19:32 EST Reading Location ID and State: [facility] / [place] Tel , Service support , Abdomen/Pelvis CT 07/14/24 19:48 IMPRESSION: Findings suspicious for small bowel obstruction with no obvious transition point. Infectious versus inflammatory enteritis. Acute left pyonephritis. Electronically Signed: Pranav Jorgensen MD at 20:47 EST Reading Location ID and State: [facility] / [place] Tel , Service support , ADDENDUM: 07/14/24 2211 IMPRESSION: Findings suspicious for small bowel obstruction with no obvious transition point. Infectious versus inflammatory enteritis. Acute left pyonephritis. N.B. : Nancy Ashley RN, confirmed on 07/14/2024 22:04:09 (ET) that the healthcare facility has received the radiology report. Electronically Signed: Pranav Jorgensen MD at 20:47 EST Reading Location ID and State: [facility] / [place] Tel , Service support , Chest CTA 07/14/24 19:48 IMPRESSION: Bibasilar pneumonia. Electronically Signed: Pranav Jorgensen MD at 20:43 EST , Echocardiogram 07/15/24 00:48 Interpretation Summary Normal LV size. Left ventricular systolic function is normal. The left ventricular ejection fraction is 60 %. Structurally normal valves. Ordering Physician: Ike Valenzuela Referring Physician: NO PCP Performed By: Kira Tapia RCS Physical Exam Const alert, oriented x3 and no apparent distress General Appearance: cooperative, well kempt and well developed Orientation / Consciousness: awake, oriented to person, oriented to place and oriented to time HEENT normocephalic, head/scalp atraumatic and moist oral mucous membranes Eyes PERRL, EOMs intact bilaterally and conjunctivae normal Neck supple, no JVD, thyroid normal and no carotid bruits General: trachea midline Resp normal respiratory effort, no retractions, no use of accessory muscles and clear to auscultation bilaterally Auscultation: Negative for rales, rhonchi or wheezes Cardio regular rate, regular rhythm, S1 normal heart sound, S2 normal heart sound, no murmurs, no rub and no gallops GI normal to inspection, nondistended, normoactive bowel sounds, soft to palpation, non-tender and non-distended Extremity no clubbing, cyanosis or edema Skin no rashes or lesions noted General Skin Exam: no breakdown Neuro oriented x3, CN's II-XII intact bilaterally, moves all extremities, no focal motor deficits and no sensory deficits noted Sensorium / Orientation: awake and alert Speech: speech normal Psych affect normal Assessment & Plan Assessment/Plan (1) Symptomatic anemia: PLAN: Plan 1. Chronic iron deficiency anemia-I will transfuse the patient 1 more unit of packed red blood cells, she will receive Venofir tomorrow, CBC will be rechecked tomorrow #2 pyelonephritis-patient will continue on IV antibiotics #3 bilateral atelectasis-I do not feel the patient has pneumonia #4 noncompliance with medical regimen-complicates care, management, recovery, and prognosis I do not feel patient has enteritis Total clinical time spent by myself addressing the patient's medical issues, reviewing all of her data, and collaborating with patient's care team: 35 minutes Charges/Coding Visit Charges Inpatient E&M: 31255 Subs Hosp L2
[2024-07-16] MEDS: DiphenhydrAMINE 12.5 MG/5 ML UDC PO ×2 (01:32→06:31)
[2024-07-16 03:00] VITALS: BP 136/72; PULSE 89; RESP 16; TEMP 36.6; O2SAT 96
[2024-07-16 03:18] VITALS: BMI 24.0
[2024-07-16 06:51] LABS: Absolute Lymphocyte Count 1.74 X10^3/uL (0.83-4.51); Absolute Neutrophil Count 7.6 X10^3/uL (2.0-7.7); Basophil# 0.06 X10^3/uL; Basophil% 0.6 % (0-1); Eosinophil# 0.26 X10^3/uL; Eosinophils% 2.4 % (0-5); Hematocrit 31.1 % (37-47); Lymphocyte # 1.74 X10^3/ul (0.83-4.51); Lymphocyte % 16.3 % (19-41); Mean Corp Hgb Conc 28.9 g/dL (32-36); Mean Corpuscular Hgb 21.2 pg (27.0-32.0); Mean Corpuscular Volume 73.3 fL (81-99); Mean Platelet Vol. 8.6 fl (6.2-12.0); Monocyte# 0.89 X10^3/uL; Monocyte% 8.3 % (0-10); NRBC Flagged by Analyzer 0.5 % (0-5); Neutrophil # 7.58 X10^3/uL (2.7-7.7); Neutrophil % 70.9 % (47-70); POSITIVE MORPHOLOGY YES; Platelet Count 486 K/mm3 (150-450); RBC Distribution Width CV 26.9 % (11.6-14.6); RBC Distribution Width SD 69.3 fl (35.1-43.9); Red Blood Count 4.24 M/mm3 (4.2-5.4); White Blood Count 10.7 K/mm3 (4.4-11.0)
[2024-07-16 07:03] LABS: Differential Indicated SCAN CRITERIA MET
[2024-07-16 07:08] LABS: Magnesium 1.8 mg/dL (1.6-2.6); Phosphorus 3.5 mg/dL (2.5-4.9)
[2024-07-16 07:46] VITALS: O2SAT 96
[2024-07-16 08:07] LABS: Anisocytosis 2+; Differential Comment SCANNED; Microcytosis 2+; Platelet Estimate SLT INC (ADEQ); Polychromasia 1+
[2024-07-16 08:08] LABS: Hypochromasia 2+; Ovalocyte 1+; Tear Drop Cell 1+
[2024-07-16 08:37] VITALS: BP 131/86; PULSE 88; RESP 16; TEMP 36.8; O2SAT 98
[2024-07-16] MEDS: Ferrous Sulfate 325 MG Tablet PO (08:39)
[2024-07-16] MEDS: Lactobacillis Acidophilus 1 CAP PO (08:40)
[2024-07-16] MEDS: Ascorbic Acid 500 MG Tablet 1000 MG PO (08:40)
[2024-07-16] MEDS: Zinc Sulfate 50 mg zinc (220 mg) ORAL capsule PO (08:42)
[2024-07-16] MEDS: Cholecalciferol (Vit D3) 125 MCG CAPSULE (5,000 UNITS) PO (08:42)
[2024-07-16] MEDS: Ensure Plus High Protein 120 ML LIQUID PO (08:46)
[2024-07-16] MEDS: 0.9% Saline Lock 10 ML Syringe IV ×2 (08:52→09:39)
[2024-07-16] MEDS: Ceftriaxone 1 GM/50 ML BAG IV (08:52)
[2024-07-16] MEDS: Pantoprazole Sodium 40 MG in 0.9% Normal Saline (100mL MB+) 100 ML 330 MG IV (08:59)
[2024-07-16] MEDS: Azithromycin 500 MG in 0.9% Normal Saline (250mL Bag) 250 ML 250 MG IV (09:39)
--- NOTE | 2024-07-16 09:41 | DCINST_ITS ---
Discharge Instructions Diet Discharge Diet: No restrictions DC O2, CPAP, BIPAP needs Home O2 Discharge instructions: No Dressing / Incision Discharge Activity: Return to Normal Activity Weight Bearing Status: Full weight bearing Follow Up Care Test Results: Test results from this visit will be discussed in further detail at your follow- up appointment, if applicable. Discharge Plan Admission Admit Date/Time: 07/14/24 19:54 Primary Reason for Your Visit: Deficiency anemia, pyelonephritis Attending Provider: Ladarius Ryan Primary Care Provider: Care Physician,No Primary Consulting Providers: Ike Valenzuela Instructions Additional Instructions / Restrictions: You will need follow-up regarding the nodules in your thyroid, follow-up with your family physician concerning this Follow-up with a primary care physician in 2 to 3 weeks Discharge Orders/Prescriptions Prescriptions: New cefdinir 300 mg capsule 300 mg PO BID Qty: 14 0RF Continued ferrous sulfate [FeroSul] 325 mg (65 mg iron) tablet 325 mg PO BID LoHist - D 2-30 mg/5 mL liquid 10 ml PO Q6H Referrals / Follow Up: Care Physician,No Primary [Primary Care Provider] - Disposition Disposition (needs filled in before D/C Order can be placed): Home, Self Care
[2024-07-16 09:51] VITALS: BP 131/86; PULSE 88; RESP 16; TEMP 36.8; O2SAT 98
[2024-07-16] MEDS: Sodium Ferric Gluconat/Sucrose 250 MG in 0.9% Normal Saline (250mL Bag) 250 ML 135 MG IV (09:52)
--- NOTE | 2024-07-16 09:52 | DS.PCM_ITS ---
Providers Date of Admission: 07/14/24 Date of Discharge: 07/16/24 Primary Care Physician: Keesha Primary Care Phys Reason For Visit: Severe ABLA with hemoglobin of 5g/dL present Diagnosis Discharge Diagnosis (1) Symptomatic anemia: Status: Acute Code(s): D64.9 - Anemia, unspecified Plan 1. Chronic iron deficiency anemia-I will transfuse the patient 1 more unit of packed red blood cells, she will receive Venofir tomorrow, CBC will be rechecked tomorrow #2 pyelonephritis-patient will continue on IV antibiotics #3 bilateral atelectasis-I do not feel the patient has pneumonia #4 noncompliance with medical regimen-complicates care, management, recovery, and prognosis #5 thyroid nodules-likely multinodular goiter, patient will need follow-up as an outpatient concerning this I do not feel patient has enteritis Total clinical time spent by myself addressing the patient's medical issues, reviewing all of her data, and collaborating with patient's care team: 35 minutes Medications at Discharge Home Medications chlorpheniramine-pseudoephedrine 2 mg-30 mg/5 mL oral liquid (LoHist - D) 10 ml PO Q6H allergies 07/14/24 ferrous sulfate 325 mg (65 mg iron) tablet (FeroSul) 325 mg PO BID supplement 07/14/24 cefdinir 300 mg capsule 300 mg PO BID #14 caps 07/16/24 Hospital Course Operations None Procedures Blood transfusion Summary of Care Provided Minutes Spent on Discharge: 32 Hospital Course: This 34-year-old white female was seen in the emergency room at [facility] with complaints of generalized weakness and fatigue as well as exertional dyspnea. Patient has a history of iron deficiency anemia and does not follow-up with a physician on a regular basis. Patient had been transfused approximately 18 months prior while hospitalized in [facility], according to the patient, the etiology of her anemia was not determined. Patient was supposed to be taking iron supplements but she admitted to not taking them. Workup in the emergency room included a CBC which showed a white blood cell count of 11.3 and hemoglobin of 5, patient's D-dimer was elevated at 2.16, chemistry profile was unremarkable. Chest CTA was obtained which indicated a bibasilar pneumonia, however this examiner did not feel the patient had pneumonia-patient had no symptoms of pneumonia. CT of the abdomen pelvis was obtained, there were findings suspicious for small bowel obstruction and infectious versus inflammatory enteritis as well as acute left pyelonephritis. This examiner did not feel the patient had enteritis and she had no symptoms of bowel obstruction however. Patient was admitted to PCU, she underwent blood transfusion and IV iron administration, she was placed on IV antibiotics for pyelonephritis. Patient improved during her hospitalization, she was urged to follow-up with a PCP after discharge. On 07/16/2024, patient was seen and examined: On examination she appeared older than her stated age, she does not appear to be in any distress. Vital signs as documented. Skin warm and dry and without overt rashes. Neck without JVD, thyroid appears normal, trachea is midline, neck is supple. Lungs clear, normal air movement was noted. Heart exam notable for regular rhythm, normal sounds and absence of murmurs, rubs or gallops. Abdomen unremarkable and without evidence of organomegaly, masses, or abdominal aortic enlargement, bowel sounds are present in all 4 quadrants, no abdominal tenderness was noted. Extremities nonedematous, no cyanosis was noted, no clubbing was noted. Neuro: Cranial nerves II through XII are grossly intact, no focal motor deficits were noted, sensation to light touch and pinprick is intact, motor exam 5/5 throughout. Psych: Patient is alert and oriented x3, she does not appear anxious or depressed, she does not appear agitated. Patient appears stable for discharge home on 07/16/2024. Weight / BMI Weight Weight: 67.5 kg Body Mass Index (BMI) 24.0 ABG / Lab / Microbiology Data 07/16/24 05:55 07/15/24 05:23 Laboratory: Laboratory Results - last 24 hr 07/14/24 17:52: Diff Path Review Reviewed 07/14/24 19:20: Crossmatch See Detail 07/14/24 19:20: Crossmatch See Detail 07/15/24 12:59: Hgb 7.6 L, Hct 26.7 L 07/16/24 05:55: WBC 10.7, RBC 4.24, Hgb 9.0 L, Hct 31.1 L, MCV 73.3 L D, MCH 21.2 L, MCHC 28.9 L, RDW Std Deviation 69.3 H, RDW Coeff of Nya 26.9 H, Plt Count 486 H, MPV 8.6, Immature Gran % (Auto) 1.500 H, Neut % (Auto) 70.9 H, L ymph % (Auto) 16.3 L, [place] % (Auto) 8.3, Eos % (Auto) 2.4, Baso % (Auto) 0.6, Absolute Neuts (auto) 7.6, Absolute Lymphs (auto) 1.74, Nucleated RBC % 0.5, Differential Comment SCANNED, Platelet Estimate SLT INC, Polychromasia 1+, Hypochromasia 2+, Anisocytosis 2+, Microcytosis 2+, Tear Drop Cells 1+, Ovalocytes 1+, Phosphorus 3.5, Magnesium 1.8 Microbiology: Microbiology 07/14/24 22:15 Blood Culture (Wb) - Left Hand Blood Culture - Final No growth in 5 days. 07/14/24 22:00 Blood Culture (Wb) - Right Hand Blood Culture - Final No growth in 5 days. 07/15/24 00:49 Urine, Clean Catch Legionella Antigen - Final 07/15/24 00:49 Urine, Clean Catch Streptococcus pneumoniae Antigen (M - Final 07/14/24 18:41 Stool Stool Occult Blood (STU) - Final Radiography Diagnostic Testing: Radiology Impression Thyroid Ultrasound 07/14/24 20:01 IMPRESSION: Multinodular thyroid gland. Ultrasound-guided biopsy of dominant nodules in the right lobe and right side of the isthmus is recommended. Follow-up ultrasound is recommended in 1 year. Electronically Signed: Harpreet Flood MD at 18:11 EST , Echocardiogram 07/15/24 00:48 Interpretation Summary Normal LV size. Left ventricular systolic function is normal. The left ventricular ejection fraction is 60 %. Structurally normal valves. Ordering Physician: Ike Valenzuela Referring Physician: NO PCP Performed By: Kira Tapia RCS D/C Instructions Discharge Diet: No restrictions Weight Bearing Status: Full weight bearing DC O2, CPAP, BIPAP Needs Home O2 Discharge instructions: No Meaningful Use Info Meaningful Use Meaningful Use Diagnoses (Choose all that apply): None applicable Ischemic Stroke Statin Dosing Therapy Reference: STATIN DOSE THERAPY REFERENCE: * Patients > 75 years receive moderate or high dose statin therapy. * Patients 75 years or YOUNGER should receive HIGH intensity statin dose unless contraindicated. You will be required to document reason for non-treatment if statin daily dose does not meet guidelines. HIGH DOSE STATIN THERAPY DAILY Atorvastatin > than or = to 40 mg Rosuvastatin > than or = to 20 mg Amlodipine + Atorvastatin > than or = to 2.5/40 mg Ezetimibe + Simvastatin 10/80 mg Simvastatin 80mg Discharge Plan Admission Admit Date/Time: 07/14/24 19:54 Primary Reason for Your Visit: Deficiency anemia, pyelonephritis Attending Provider: Ladarius Ryan Primary Care Provider: Care Physician,Keesha Primary Consulting Providers: Ike Valenzuela Instructions Additional Instructions / Restrictions: You will need follow-up regarding the nodules in your thyroid, follow-up with your family physician concerning this Follow-up with a primary care physician in 2 to 3 weeks Discharge Orders/Prescriptions Prescriptions: New cefdinir 300 mg capsule 300 mg PO BID Qty: 14 0RF Continued ferrous sulfate [FeroSul] 325 mg (65 mg iron) tablet 325 mg PO BID LoHist - D 2-30 mg/5 mL liquid 10 ml PO Q6H Referrals / Follow Up: Care Physician,No Primary [Primary Care Provider] - Disposition Disposition (needs filled in before D/C Order can be placed): Home, Self Care Charges/Coding Visit Charges Inpatient E&M: 80553 Disch Hosp >30min
[2024-07-16 20:07] LABS: HCV Quant. RNA PCR HCV Not Detected IU/mL (.)
[2024-07-18 21:07] LABS: HEPATITIS B SURFACE AG Negative (Negative); Hep C Antibodies Reactive (Non Reactive); Hepatitis A IgM Antibody Negative (Negative); Hepatitis B Core AB IgM Negative (Negative); Hepatitis C Quant HCV Not Detected IU/mL (.)
--- OUTSIDE RECORDS SUMMARY | 2025-03-21 21:37 | XMS RPT_ITS | CCD ---
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 [facility] XR Pelvis and Hip - right AP and Lateral frogon 03-11-2025 IMPRESSION: Moderate-severe RIGHT hip osteoarthritis. Boom Man: [place] Transcribe Date/Time: Mar 11 2025 1:52P Dictated by : DANELLE IRAHETA DO This examination was interpreted and the report reviewed and electronically signed by: DANELLE IRAHETA DO on Mar 11 2025 1:53PM EST DIVISION OF RADIOLOGY * * *Final Report* * * DATE OF EXAM: Mar 11 2025 1:48PM WOX 5352 - XR HIP 3V PELV+ AP/LAT RT / PROCEDURE REASON: Right hip pain * * * * Physician Interpretation * * * * EXAMINATION: XR HIP 3V PELV+ AP/LAT RT TECHNOLOGIST PROVIDED HISTORY: right hip pain for years but worse lately CLINICAL INFORMATION: 35 years old Female with Right hip pain TECHNIQUE: XR HIP 3V PELV+ AP/LAT RT Laterality: RIGHT Number of different views (projections): 3 COMPARISON: None RESULT: No acute fracture. Moderate-severe RIGHT hip osteoarthritis with joint space narrowing, prominent color osteophyte formation and subchondral cystic changes. LEFT hip joint space is maintained. Sacroiliac joints and pubic symphysis are maintained. IUD in the pelvis. DIVISION OF RADIOLOGY Provider, Alanna Thacker - 03/11/2025 * * *Final Report* * * DATE OF EXAM: Mar 11 2025 1:48PM WOX 5352 - XR HIP 3V PELV+ AP/LAT RT / PROCEDURE REASON: Right hip pain * * * * Physician Interpretation * * * * EXAMINATION: XR HIP 3V PELV+ AP/LAT RT TECHNOLOGIST PROVIDED HISTORY: right hip pain for years but worse lately CLINICAL INFORMATION: 35 years old Female with Right hip pain TECHNIQUE: XR HIP 3V PELV+ AP/LAT RT Laterality: RIGHT Number of different views (projections): 3 COMPARISON: None RESULT: No acute fracture. Moderate-severe RIGHT hip osteoarthritis with joint space narrowing, prominent color osteophyte formation and subchondral cystic changes. LEFT hip joint space is maintained. Sacroiliac joints and pubic symphysis are maintained. IUD in the pelvis. IMPRESSION IMPRESSION: Moderate-severe RIGHT hip osteoarthritis. Boom Man: [place] Transcribe Date/Time: Mar 11 2025 1:52P Dictated by : DANELLE IRAHETA DO This examination was interpreted and the report reviewed and electronically signed by: DANELLE IRAHETA DO on Mar 11 2025 1:53PM EST [facility] Radiology Study observation (narrative) [facility] XR Pelvis and Hip - right AP and Lateral frogOrdered By: Cc Provider on 03-11-2025 [facility] Office Visit Reporton 2024 Office Visit Report [facility] [address] [place] [address] OFFICE VISIT Date of Service: 02/22/25 MR#: [id number] Acct: [id number] Patient: MYLES VENEGAS Rep #: [id number] : 1990 Provider: SHEELA Staton Age/Sex: 35/F Location: [facility] Status: Signed Intake Vital Signs 07/15/24 10:45 02/22/25 14:18 Height 5 ft 6 in 5 ft 6 in Intake Visit Reasons: PE NON DOT DRUG/ DOMETIC Allergies No Known Allergies Allergy (Verified 07/14/24 21:06) Office Procedures [facility] Billing Sheet Testing Pre-Employment Drug Screen: Yes 03/06/2528 Date Estee Barrera Signature: Date (if applicable) CC: Normal [facility] Culture, Blood (WB)on 2024 CUB No growth in 5 days. Normal [facility] Comment on above: Performed By: #### L 501.2300, L501.5200, L500.4050, L100.0100 #### [facility] [address] [place], [address] Hepatitis Panel Acuteon 12-3 HCV Interpretat Comment Normal . [facility] Comment on above: Result Comment: Posi tive HCV antibody screen without the presence of HCV RNA is consistent with a resolved past infection or a false positive HCV antibody. Consider repeat testing after one month. Performed at: [facility] [address] [id number] Land Acquisition Analyst: Sadiq Simpson PhD, Phone: [phone] Performed at: [facility] [address] [id number] Land Acquisition Analyst: Isaiah Duran MD, Phone: [phone] Performed By: #### L 501.2300, L501.5200, L500.4050, L100.0100 #### [facility] [address] [place], [address] HCV log 10 TNP Normal . [facility] Comment on above: Performed By: #### L 501.2300, L501.5200, L500.4050, L100.0100 #### [facility] [address] [place], [address] HEP B CORE,IgM Negative Normal Negative [facility] Comment on above: Performed By: #### L 501.2300, L501.5200, L500.4050, L100.0100 #### [facility] [address] [place], [address] HEP B SURF AG Negative Normal Negative [facility] Comment on above: Performed By: #### L 501.2300, L501.5200, L500.4050, L100.0100 #### [facility] [address] [place], [address] Hep C Quant Not detected Normal . [facility] Comment on above: Performed By: #### L 501.2300, L501.5200, L500.4050, L100.0100 #### [facility] [address] [place], [address] HEP C VIRUS AB Reactive Abnormal Non Reactive [facility] Comment on above: Performed By: #### L 501.2300, L501.5200, L500.4050, L100.0100 #### [facility] [address] [place], [address] HEPATITIS A-IgM Negative Normal Negative [facility] Comment on above: Result Comment: A ne gative anti-HAV IgM result suggests no recent or current HAV infection. Performed By: #### L 501.2300, L501.5200, L500.4050, L100.0100 #### [facility] [address] [place], [address] Test Informatio Comment Normal . [facility] Comment on above: Result Comment: The quantitative range of this assay is 15 IU/mL to 100 million IU/mL. Performed By: #### L 501.2300, L501.5200, L500.4050, L100.0100 #### [facility] [address] [place], [address] CBC W/Diff, Automatedon 12- HYPOCHROMASIA 2+ Normal [facility] Comment on above: Performed By: #### L 501.2300, L501.5200, L500.4050, L100.0100 #### [facility] [address] [place], [address] OVALOCYTE 1+ Normal [facility] Comment on above: Performed By: #### L 501.2300, L501.5200, L500.4050, L100.0100 #### [facility] [address] [place], [address] TEAR DROP 1+ Normal [facility] Comment on above: Performed By: #### L 501.2300, L501.5200, L500.4050, L100.0100 #### [facility] [address] [place], [address] Anisocytosis Ql (Bld) 2+ Normal [facility] Comment on above: Performed By: #### L 501.2300, L501.5200, L500.4050, L100.0100 #### [facility] [address] [place], [address] MICROCYTIC 2+ Normal [facility] Comment on above: Performed By: #### L 501.2300, L501.5200, L500.4050, L100.0100 #### [facility] [address] [place], [address] PLT EST SLT INC Normal ADEQ [facility] Comment on above: Performed By: #### L 501.2300, L501.5200, L500.4050, L100.0100 #### [facility] [address] [place], [address] POLYCHROMASIA 1+ Normal [facility] Comment on above: Performed By: #### L 501.2300, L501.5200, L500.4050, L100.0100 #### [facility] [address] [place], [address] SMEAR COMMENT SCANNED Normal [facility] Comment on above: Performed By: #### L 501.2300, L501.5200, L500.4050, L100.0100 #### [facility] [address] [place] [place], [address] Discharge Instructionon 06-20 Discharge Instruction [facility] Medical Records Department [address] [place] [address] Instructions for Home/Discharge Instructions 07/16/24 0941 MR#: [id number] Acct: [id number] Name: MYLES VENEGAS Rep #: [id number] : 1990 34 From: Ladarius Ryan DO PCP: Care Physician,No Primary Status:ADM IN Discharge Instructions Diet Discharge Diet: No restrictions DC O2, CPAP, BIPAP needs Home O2 Discharge instructions: No Dressing / Incision Discharge Activity: Return to Normal Activity Weight Bearing Status: Full weight bearing Follow Up Care Test Results: Test results from this visit will be discussed in further detail at your follow-up appointment, if applicable. Discharge Plan Admission Admit Date/Time: 07/14/24 19:54 Primary Reason for Your Visit: Deficiency anemia, pyelonephritis Attending Provider: Ladarius Ryan Primary Care Provider: Care Physician,No Primary Consulting Providers: Rajeev Valenzuela Instructions Additional Instructions / Restrictions: You will need follow-up regarding the nodules in your thyroid, follow-up with your family physician concerning this Follow-up with a primary care physician in 2 to 3 weeks Discharge Orders/Prescriptions Prescriptions: New cefdinir 300 mg capsule 300 mg PO BID Qty: 14 0RF Continued ferrous sulfate [FeroSul] 325 mg (65 mg iron) tablet 325 mg PO BID LoHist - D 2-30 mg/5 mL liquid 10 ml PO Q6H Referrals / Follow Up: Care Physician,No Primary [Primary Care Provider] - Disposition Disposition (needs filled in before D/C Order can be placed): Home, Self Care 07/16/24 0952 Ladarius Ryan DO CC: Dr. Rajeev Valenzuela, DO; No Primary Care Physician Signed Normal [facility] Hepatitis C,RNA PCR [employer] animal [employer] supervisor 07-16-2024 HCV log 10 TNP Normal . [facility] Comment on above: Performed By: #### L 7000.7000 #### [facility] [address] [place], [address] HCV QT RNA PCR Not detected Normal . [facility] Comment on above: Performed By: #### L 7000.7000 #### [facility] [address] [place], [address] TEST INFO: Comment Normal . [facility] Comment on above: Result Comment: The quantitative range of this assay is 15 IU/mL to 100 million IU/mL. Performed at: [address] [id number] Land Acquisition Analyst: Isaiah Duran MD, Phone: [phone] Performed By: #### L 7000.7000 #### [facility] [address] [place], [address] Magnesiumon 07-16-2024 Magnesium [Mass/Vol] 1.8 mg/dL Normal 1.6-2.6 [facility] Comment on above: Performed By: #### L 501.5200, L501.2300 #### [facility] [address] [place], [address] Phosphoruson 07-16-2024 Phosphate [Mass/Vol] 3.5 mg/dL Normal 2.5-4.9 [facility] Comment on above: Performed By: #### L 501.5200, L501.2300 #### [facility] [address] [place], [address] CBC W/Diff, Automatedon 12-2 PATH REV Reviewed Normal [facility] Comment on above: Result Comment: Neut rophilic leukocytosis. Severe Microcytic anemia. Thrombocytosis. Clinical correlation necessary. Marcial Veronica M.D. 07/15/24 Pathologist comment added AMENDED REPORT 07/15/24 1135 PATH REV previously reported as: November Performed By: #### L 501.2300, L501.5200, L500.4050, L100.0100 #### [facility] [address] [place], [address] Anisocytosis Ql (Bld) RARE Normal [facility] Comment on above: Performed By: #### L 501.2300, L501.5200, L500.4050, L100.0100 #### [facility] [address] [place], [address] Comprehensive Metabolic Prof ilon 07-15-2024 Albumin [Mass/Vol] 2.3 g/dL Low 3.2-5.[address] [facility] Comment on above: Performed By: #### L 501.2300, L501.5200, L500.4050, L100.0100 #### [facility] [address] [place], [address] Albumin/Globulin [Mass ratio] 0.5 {ratio} Low 0.9-2.4 [facility] Comment on above: Performed By: #### L 501.2300, L501.5200, L500.4050, L100.0100 #### [facility] [address] [place], [address] ALK P 76 U/L Normal 45-117 [facility] Comment on above: Performed By: #### L 501.2300, L501.5200, L500.4050, L100.0100 #### [facility] [address] [place], [address] ALT [Catalytic activity/Vol] 12 U/L Low 13-56 [facility] Comment on above: Performed By: #### L 501.2300, L501.5200, L500.4050, L100.0100 #### [facility] [address] [place], [address] AST [Catalytic activity/Vol] 7 U/L Low 15-37 [facility] Comment on above: Performed By: #### L 501.2300, L501.5200, L500.4050, L100.0100 #### [facility] [address] [place], [address] Bilirubin [Mass/Vol] 0.50 mg/dL Normal 0.20-1.00 [facility] Comment on above: Result Comment: For patients on eltrombopag therapy, use of Dimension [place] TBIL is not recommended. Performed By: #### L 501.2300, L501.5200, L500.4050, L100.0100 #### [facility] [address] [place], [address] BUN/CRE 5.7 RATIO Low 10-20 [facility] Comment on above: Performed By: #### L 501.2300, L501.5200, L500.4050, L100.0100 #### [facility] [address] [place], [address] CA,Total 8.5 mg/dL Normal 8.5-10.1 [facility] Comment on above: Performed By: #### L 501.2300, L501.5200, L500.4050, L100.0100 #### [facility] [address] [place], [address] Chloride [Moles/Vol] 112 mmol/L High 98-107 [facility] Comment on above: Performed By: #### L 501.2300, L501.5200, L500.4050, L100.0100 #### [facility] [address] [place], [address] CO2 [Moles/Vol] 23.0 mmol/L Normal 21.0-32.0 [facility] Comment on above: Performed By: #### L 501.2300, L501.5200, L500.4050, L100.0100 #### [facility] [address] [place], [address] Creatinine [Mass/Vol] 0.52 mg/dL Low 0.55-1.02 [facility] Comment on above: Result Comment: The validity of the calculated GFR GFRAA in patients over 70 years has not been determined. Clinical correlation is essential. Performed By: #### L 501.2300, L501.5200, L500.4050, L100.0100 #### [facility] [address] [place], [address] ECRCL 142.71 ml/min Normal [facility] Comment on above: Performed By: #### L 501.2300, L501.5200, L500.4050, L100.0100 #### [facility] [address] [place], [address] EST GFR - AA 171 mL/min Normal >60 [facility] Comment on above: Result Comment: Afri can Citizen Of [place] GFR Calc Performed By: #### L 501.2300, L501.5200, L500.4050, L100.0100 #### [facility] [address] [place], [address] GAP 4 Low 5-15 [facility] Comment on above: Performed By: #### L 501.2300, L501.5200, L500.4050, L100.0100 #### [facility] [address] [place], [address] GFR/1.73 sq M.predicted among non-blacks MDRD (S/P/Bld) [Vol rate/Area] 142 mL/min/{1.73_m2} Normal >60 [facility] Comment on above: Result Comment: Non- GFR Calc Performed By: #### L 501.2300, L501.5200, L500.4050, L100.0100 #### [facility] [address] [place], [address] Globulin (S) [Mass/Vol] 4.4 g/dL High 2.2-4.2 [facility] Comment on above: Performed By: #### L 501.2300, L501.5200, L500.4050, L100.0100 #### [facility] [address] [place], [address] Glucose [Mass/Vol] 163 mg/dL High 74-[address] [facility] Comment on above: Result Comment: Fast ing Glucose result greater than or equal to 126 mg/dL suggests DIABETES MELLITUS per A.D.A. criteria. Performed By: #### L 501.2300, L501.5200, L500.4050, L100.0100 #### [facility] [address] [place], [address] Potassium [Moles/Vol] 3.4 mmol/L Low 3.5-5.1 [facility] Comment on above: Performed By: #### L 501.2300, L501.5200, L500.4050, L100.0100 #### [facility] [address] [place], [address] Sodium [Moles/Vol] 139 mmol/L Normal 136-[address] [facility] Comment on above: Performed By: #### L 501.2300, L501.5200, L500.4050, L100.0100 #### [facility] [address] [place], [address] T PROT 6.7 g/dL Normal 6.4-8.2 [facility] Comment on above: Performed By: #### L 501.2300, L501.5200, L500.4050, L100.0100 #### [facility] [address] [place], [address] Urea nitrogen [Mass/Vol] 3 mg/dL Low 7-18 [facility] Comment on above: Performed By: #### L 501.2300, L501.5200, L500.4050, L100.0100 #### [facility] [address] [place], [address] Echo Completeon 07-15-2024 Echo Complete [facility] [address] [place] [address] Echo Complete 07/15/24 1021 MR#: [id number] Acct: [id number] Name: MYLES VENEGAS Rep #: [id number] : 1990 34 From: Smith Jenkins MD Attending Dr: Dr. Ladarius Ryan, Status: A DM IN Ordering Dr: Rajeev Valenzuela DO Date: 07/15/24 Location: [facility] Sex: F C Admitted: 07/14/24 Reason For Study: OTHER Procedure This was a 2D Doppler, Color Flow transthoracic echocardiogram. Exam performed portable in patient room. Left Ventricle Normal LV size. Left ventricular systolic function is normal. The left ventricular ejection fraction is 60 %. No regional wall motion abnormalities noted. Right Ventricle Normal RV size. Normal systolic function. Atria Normal left atrium. Normal right atrium. Mitral Valve Normal mitral valve. Tricuspid Valve Normal tricuspid valve. Mild tricuspid valve insufficiency. Aortic Valve Normal aortic valve. Pulmonic Valve Normal pulmonic valve. Great Vessels Normal aortic root. The pulmonary artery is normal size. Normal inferior vena cava. Pericardium/Pleural No pericardial effusion. MMode/2D Measurements Calculations LVIDd: 4.6 cm IVSd: 1.1 cm LVOT diam: 2.2 cm LVIDs: 4.1 cm LVPWd: 1.4 cm LVOT area: 3.8 cm2 RVDd: 3.9 cm FS: 10.1 % LAV(MOD-bp): 65.6 ml LVAd ap4: 35.4 cm2 SV(MOD-sp4): 61.6 ml LAV(MOD-bp) Indexed: 37.1 ml/m2 LVLd ap4: 8.8 cm SI(MOD-sp4): 34.8 ml/m2 LAV(MOD-sp2): 87.6 ml EDV(MOD-sp4): 117.1 ml LAV(MOD-sp4): 47.2 ml EDV(sp4-el): 121.3 ml LVAs ap4: 22.2 cm2 LVLs ap4: 7.4 cm ESV(MOD-sp4): 55.5 ml ESV(sp4-el): 56.5 ml EF(MOD-sp4): 52.6 % EF(sp4-el): 53.4 % SV(sp4-el): 64.7 ml LA A4 area: 16.6 cm2 RA A4 area: 12.5 cm2 Time Measurements MV dec time: 0.12 sec Doppler Measurements Calculations MV E max skinny: 135.7 cm/sec Lat Peak E' Skinny: 9.8 cm/sec Med Peak E' Skinny: 6.7 cm/sec MV A max skinny: 109.8 cm/sec E/E' lat: 13.8 E/E' med: 20.2 MV E/A: 1.2 MV V2 max: 133.4 cm/sec Ao V2 max: 176.7 cm/sec MV max P.1 mmHg MV dec slope: 1220 cm/sec2 Ao max P.5 mmHg MV V2 mean: 100.8 cm/sec Ao V2 mean: 124.2 cm/sec MV mean P.4 mmHg Ao mean P.9 mmHg MV V2 VTI: 31.9 cm Ao V2 VTI: 32.6 cm AV (velocity ratio): 0.84 MVA(VTI): 3.3 cm2 MARY BETH(I,D): 3.2 cm2 MARY BETH(V,D): 3.2 cm2 LV V1 max: 146.1 cm/sec SV(LVOT): 104.5 ml PA V2 max: 118.2 cm/sec LV V1 max P.5 mmHg PA V2 mean: 83.6 cm/sec LV V1 mean P.3 mmHg LV V1 mean: 110.3 cm/sec LV V1 VTI: 27.3 cm ECHO/Echo Complete Interpretation Summary Normal LV size. Left ventricular systolic function is normal. The left ventricular ejection fraction is 60 %. Structurally normal valves. Ordering Physician: Rajeev Valenzuela Referring Physician: VALENTIN PCP Performed By: Kira Tapia RCS 07/15/24 1300 Date Smith Jenkins MD CC: Dr. Rajeev Valenzuela, DO; Dr. Ladarius Ryan, DO; No Primary Care Physician Date Dictated: 07/15/24 1021 Date Transcribed: 07/15/24 1300 Boom Man: Signed Normal [facility] HH, Hemoglobin AND Hematocri ton 07-15-2024 Hematocrit (Bld) [Volume fraction] 26.7 % Low 37-47 [facility] Comment on above: Performed By: #### L 100.0600 #### [facility] [address] [place], [address] Hemoglobin (Bld) [Mass/Vol] 7.6 g/dL Low 12.0-15.0 [facility] Comment on above: Performed By: #### L 100.0600 #### [facility] [address] [place], [address] Hepatitis C Antibodyon 07-15 Hepatitis C AB Preliminary Reactive Abnormal Nonreactive [facility] Comment on above: Result Comment: Crit ical Result(s) Called at: 03:29:25 07/15/2024 by: Matthew Rocha. joelle Boston RN PCU. Results read back by same. Non Reactive: < 0.8 Equivocal: >/= 0.8 to < 1.0 Reactive: >/= 1.0 The CDC requires that a reactive/equivocal HCV antibody result be sent out for confirmation. HCV Quant by PCR testing. Performed By: #### L 501.2300, L501.5200, L500.4050, L100.0100 #### [facility] [address] [place], [address] Lactic Acidon 07-15-2024 Lactate [Moles/Vol] 2.6 mmol/L Invalid Interpretation Code 0.4-1.9 [facility] Comment on above: Result Comment: Crit ical Result(s) Called at: 06:07:39 07/15/2024 by: Matthew Rocha. joelle Avila RN PCU. Results read back by same. Performed By: #### L 503.6005 #### [facility] [address] [place], [address] Legionella Antigen Urineon 1 09-15-2023 LEGU URINE, CLEAN CATCH Legionella Antigen result interpretation: L pneumo Ag Ur Ql Negative Presumptive negative for Legionella pneumophila serogroup 1 antigen in urine, suggesting no recent or current infection. Legionella Ag, Urine Negative (See interpretation below) Normal [facility] Comment on above: Performed By: #### L 501.2300, L501.5200, L500.4050, L100.0100 #### [facility] [address] [place], [address] Magnesiumon 07-15-2024 Magnesium [Mass/Vol] 1.7 mg/dL Normal 1.6-2.6 [facility] Comment on above: Performed By: #### L 501.2300, L501.5200, L500.4050, L100.0100 #### [facility] [address] [place], [address] Phosphoruson 07-15-2024 Phosphate [Mass/Vol] 2.4 mg/dL Low 2.5-4.9 [facility] Comment on above: Performed By: #### L 501.2300, L501.5200, L500.4050, L100.0100 #### [facility] [address] [place], [address] Strep pneumoniae Antig(UR,CS F)on 07-15-2024 STPAG URINE, CLEAN CATCH URINE INTERPRETATION Strep pneumoniae Antig(UR,CSF) Negative Urine Presumptive negative for pneumococcal pneumonia, suggesting no current or recent pneumococcal infection. Infection due to S pneumoniae cannot be ruled out since the antigen present in the sample may be below the detection limit of the test. Strep pneumo Test Negative URINE (See interpretation below) Normal [facility] Comment on above: Performed By: #### L 501.2300, L501.5200, L500.4050, L100.0100 #### [facility] [address] [place], [address] Urinalysis, Completeon 07-15 BACTERIA 0 SEEN Normal None Seen [facility] Comment on above: Order Comment: CLEAN CATCH Performed By: #### M 300.4500, L400.0001, M300.4600 #### [facility] [address] [place], [address] EPI,SQUAMOUS 0 SEEN Normal 5-10 [facility] Comment on above: Order Comment: CLEAN CATCH Performed By: #### M 300.4500, L400.0001, M300.4600 #### [facility] [address] [place], [address] Mucus Ql (Urine sed) 0 SEEN Normal [facility] Comment on above: Order Comment: CLEAN CATCH Performed By: #### M 300.4500, L400.0001, M300.4600 #### [facility] [address] [place], [address] RBC 0 SEEN Normal 0-5 [facility] Comment on above: Order Comment: CLEAN CATCH Performed By: #### M 300.4500, L400.0001, M300.4600 #### [facility] [address] [place], [address] WBC 0 SEEN Normal 0-5 [facility] Comment on above: Order Comment: CLEAN CATCH Performed By: #### M 300.4500, L400.0001, M300.4600 #### [facility] [address] [place], [address] Urine Drug Screen (VISTA)on 07-15-2024 AMPHETAMINES Negative Normal <1000 ng/mL [facility] Comment on above: Performed By: #### L 501.2300, L501.5200, L500.4050, L100.0100 #### [facility] Laboratory [address] [place], [address] BARBITIURATES Negative Normal < 200 ng/mL [facility] Comment on above: Performed By: #### L 501.2300, L501.5200, L500.4050, L100.0100 #### [facility] Laboratory [address] [place], [address] BENZODIAZIPINE Negative Normal < 200 ng/mL [facility] Comment on above: Performed By: #### L 501.2300, L501.5200, L500.4050, L100.0100 #### [facility] Laboratory [address] [place], [address] COCAINE Negative Normal < 300 ng/mL [facility] Comment on above: Performed By: #### L 501.2300, L501.5200, L500.4050, L100.0100 #### [facility] Laboratory [address] [place], [address] ECSTACY Negative Normal < 500 ng/mL [facility] Comment on above: Performed By: #### L 501.2300, L501.5200, L500.4050, L100.0100 #### [facility] Laboratory [address] [place], [address] METHADONE Negative Normal < 300 ng/mL [facility] Comment on above: Performed By: #### L 501.2300, L501.5200, L500.4050, L100.0100 #### [facility] Laboratory [address] [place], [address] OPIATES Negative Normal < 300 ng/mL [facility] Comment on above: Performed By: #### L 501.2300, L501.5200, L500.4050, L100.0100 #### [facility] Laboratory [address] [place], [address] PCP Negative Normal < 25 ng/mL [facility] Comment on above: Performed By: #### L 501.2300, L501.5200, L500.4050, L100.0100 #### [facility] Laboratory [address] [place], [address] THC Positive Abnormal < 50 ng/mL [facility] Comment on above: Performed By: #### L 501.2300, L501.5200, L500.4050, L100.0100 #### [facility] Laboratory [address] [place], [address] VISTA UDS PH 7 Normal [facility] Comment on above: Performed By: #### L 501.2300, L501.5200, L500.4050, L100.0100 #### [facility] Laboratory [address] [place], [address] 12 Lead EKGon 07-14-2024 12 Lead EKG [facility] Cardiovascular Services [address] [place] [address] 12 Lead EKG 07/14/24 1759 MR#: [id number] Acct: [id number] Name: MYLES VENEGAS Rep #: [id number] : 1990 34 From: Smith Jenkins MD Attending Dr: Dr. Ladarius Ryan DO Status: A DM IN Ordering Dr: Vj Ruiz DO Date: 07/14/24 Location: [facility] Sex: F C Admitted: 07/14/24 Test Reason : Blood Pressure : */* mmHG Vent. Rate : 109 BPM Atrial Rate : 109 BPM P-R Int : 130 ms QRS Dur : 92 ms QT Int : 320 ms P-R-T Axes : 37 45 34 degrees QTcB Int : 430 ms Sinus tachycardia Otherwise normal ECG Confirmed by SMITH JENKINS MD ([id number]), restaurant expeditor LUKAS OROZCO ([id number]) on 07/15/2024 9:46:14 AM Referred By: Confirmed By: SMITH JENKINS MD 07/15/24 0946 Date Smith Jenkins MD CC: Dr. Ladarius Ryan DO; Dr. Vj Ruiz DO; No Primary Care Physician Signed Normal [facility] Abdomen/Pelvis W IV Cont ONL Yon 07-14-2024 Abdomen/Pelvis W IV Cont ONLY [facility] Imaging Services [address] [place] [address] Abdomen/Pelvis W IV Cont ONLY MR#: [id number] Acct: [id number] Name: MYLES VENEGAS Rep #: [id number] : 1990 F 34 From: Pranav pereira MD PCP: Care Physician,No Primary Status: ADM IN Study: Abdomen/Pelvis W IV Cont ONLY Date of Exam: Exam# [id number] Ordering Dr: Vj Ruiz DO ADDENDUM by Pranav Jorgensen MD on 07/14/24 at 2046 [id number] INDICATION: anemia EXAMINATION: CT Abdomen And Pelvis W/ Contrast Injection TECHNIQUE: Helically acquired images were obtained of the abdomen and pelvis after IV contrast. A radiation dose optimization technique was used for this scan. IV Contrast dosage and agent: IV 100mL Isovue-370 Oral contrast: None. COMPARISON: None. FINDINGS: Visualized lung bases: Refer to CT chest report same date. Liver: Unremarkable Gallbladder: Unremarkable Spleen: Unremarkable Pancreas: Unremarkable Adrenal Glands: Unremarkable Kidneys: Striated nephrogram appearance of the left kidney. Vasculature: Unremarkable GI Tract: A few proximal small bowel loops demonstrate circumferential wall thickening with minimal surrounding fat stranding. There are multiple dilated loops of small bowel measuring up to 3.8 cm in diameter. No obvious transition point. Lymphadenopathy: None Peritoneum: No ascites. Bladder: Unremarkable Reproductive organs: Unremarkable Bones/Soft tissues: No suspicious osseous or soft tissue lesions 07/14/242046 Date cc: Dr. Vj Ruiz DO; No Primary Care Physician * Signed ADDENDUM by Pranav Jorgensen MD on 07/14/[address]/Abdomen/Pelvis W IV Cont ONLY IMPRESSION: Findings suspicious for small bowel obstruction with no obvious transition point. Infectious versus inflammatory enteritis. Acute left pyonephritis. N.B. : Nancy Ashley RN, confirmed on 07/14/2024 22:04:09 (ET) that the healthcare facility has received the radiology report. Electronically Signed: Pranav Jorgensen MD at 20:47 EST , 07/14/242210 Date cc: Dr. Vj Ruiz DO; No Primary Care Physician * Signed [id number] INDICATION: anemia EXAMINATION: CT Abdomen And Pelvis W/ Contrast Injection TECHNIQUE: Helically acquired images were obtained of the abdomen and pelvis after IV contrast. A radiation dose optimization technique was used for this scan. IV Contrast dosage and agent: IV 100mL Isovue-370 Oral contrast: None. COMPARISON: None. FINDINGS: Visualized lung bases: Refer to CT chest report same date. Liver: Unremarkable Gallbladder: Unremarkable Spleen: Unremarkable Pancreas: Unremarkable Adrenal Glands: Unremarkable Kidneys: Striated nephrogram appearance of the left kidney. Vasculature: Unremarkable GI Tract: A few proximal small bowel loops demonstrate circumferential wall thickening with minimal surrounding fat stranding. There are multiple dilated loops of small bowel measuring up to 3.8 cm in diameter. No obvious transition point. Lymphadenopathy: None Peritoneum: No ascites. Bladder: Unremarkable Reproductive organs: Unremarkable Bones/Soft tissues: No suspicious osseous or soft tissue lesions CT/Abdomen/Pelvis W IV Cont ONLY IMPRESSION: Findings suspicious for small bowel obstruction with no obvious transition point. Infectious versus inflammatory enteritis. Acute left pyonephritis. Electronically Signed: Pranav Jorgensen MD at 20:47 EST , CC: Dr. Vj Ruiz DO; No Primary Care Physician Boom Man: Signed [facility] 07-14-2024 RC Normal [facility] Comment on above: Result Comment: [id number] AP RC TRANSFUSED 07/15/24 1548 Performed By: #### L 501.2300, L501.5200, L500.4050, L100.0100 #### [facility] Laboratory [address] [place], [address] Result Comment: [id number] AP RC TRANSFUSED 07/15/24 0109 [id number] AP RC TRANSFUSED 07/14/24 2138 Result Comment: [id number] AP RC TRANSFUSED 07/15/24 0705 CTA Chest W/WO Contraston CTA Chest W/WO Contrast [facility] Imaging Services [address] [place] [address] CTA Chest W/WO Contrast MR#: [id number] Acct: [id number] Name: MYLES VENEGAS Rep #: [id number] : 1990 F 34 From: Pranav pereira MD PCP: Care Physician,No Primary Status: ADM IN Study: CTA Chest W/WO Contrast Date of Exam: 07/14/24 Exam# [id number] Ordering Dr: Vj Ruiz DO [id number] INDICATION: sob EXAMINATION: CTA Chest WO/W Contrast Injection TECHNIQUE: Helically acquired images were obtained of the chest following administration of IV contrast. A radiation dose optimization technique was used for this scan. 3D postprocessing images including MIPS were reviewed. IV Contrast dosage and agent: IV 100mL Isovue-370 COMPARISON: None. FINDINGS: Lungs: Bibasilar consolidations. Mediastinum: The cardiomediastinal silhouette is not enlarged. No mediastinal, hilar or axillary adenopathy. The thoracic aorta is unremarkable. No obvious filling defect seen within the visualized pulmonary arteries. Pleura: Unremarkable Bones/Soft tissues: Mild scattered degenerative changes of the visualized spine. Upper abdomen: Refer to CT abdomen pelvis report same date. CT/CTA Chest W/WO Contrast IMPRESSION: Bibasilar pneumonia. Electronically Signed: Pranav Jorgensen MD at 20:43 EST , CC: Dr. Vj Ruiz DO; No Primary Care Physician Boom Man: Signed Normal [facility] Chest 1 View (Portable)on Chest 1 View (Portable) [facility] Imaging Services [address] [place] [address] Chest 1 View (Portable) MR#: [id number] Acct: [id number] Name: MYLES VENEGAS Rep #: [id number] : 1990 F 34 From: Pranav pereira MD PCP: Care Physician,No Primary Status: REG ER Study: Chest 1 View (Portable) Date of Exam: 07/14/24 Exam# [id number] Ordering Dr: Vj Ruiz DO [id number] INDICATION: dyspnea EXAMINATION/TECHNIQUE : X-RAY - XR Chest 1 View COMPARISON: None. FINDINGS: The lungs are clear. The cardiomediastinal silhouette is unremarkable. No pleural effusion or pneumothorax. No acute osseous abnormalities. RAD/Chest 1 View (Portable) IMPRESSION: No acute radiographic abnormalities. Electronically Signed: Pranav Jorgensen MD at 19:32 EST , CC: Dr. Vj Ruiz DO; No Primary Care Physician Boom Man: Signed Normal [facility] Comprehensive Metabolic Prof ilon 07-14-2024 Albumin [Mass/Vol] 2.5 g/dL Low 3.2-5.[address] [facility] Comment on above: Performed By: #### L 501.2300, L501.5200, L500.4050, L100.0100 #### [facility] Laboratory [address] [facility] [place], [address] Albumin/Globulin [Mass ratio] 0.6 {ratio} Low 0.9-2.4 [facility] Comment on above: Performed By: #### L 501.2300, L501.5200, L500.4050, L100.0100 #### [facility] Laboratory [address] [place], [address] ALK P 79 U/L Normal 45-117 [facility] Comment on above: Performed By: #### L 501.2300, L501.5200, L500.4050, L100.0100 #### [facility] Laboratory [address] [place], [address] ALT [Catalytic activity/Vol] 15 U/L Normal 13-56 [facility] Comment on above: Performed By: #### L 501.2300, L501.5200, L500.4050, L100.0100 #### [facility] Laboratory [address] [place], [address] AST [Catalytic activity/Vol] 15 U/L Normal 15-37 [facility] Comment on above: Performed By: #### L 501.2300, L501.5200, L500.4050, L100.0100 #### [facility] Laboratory [address] [place], [address] Bilirubin [Mass/Vol] 0.30 mg/dL Normal 0.20-1.00 [facility] Comment on above: Result Comment: For patients on eltrombopag therapy, use of Dimension [place] TBIL is not recommended. Performed By: #### L 501.2300, L501.5200, L500.4050, L100.0100 #### [facility] Laboratory [address] [place], [address] BUN/CRE 9.4 RATIO Low 10-20 [facility] Comment on above: Performed By: #### L 501.2300, L501.5200, L500.4050, L100.0100 #### [facility] Laboratory [address] [place], [address] CA,Total 8.5 mg/dL Normal 8.5-10.1 [facility] Comment on above: Performed By: #### L 501.2300, L501.5200, L500.4050, L100.0100 #### [facility] Laboratory [address] [place], [address] Chloride [Moles/Vol] 111 mmol/L High 98-107 [facility] Comment on above: Performed By: #### L 501.2300, L501.5200, L500.4050, L100.0100 #### [facility] Laboratory [address] [place], [address] CO2 [Moles/Vol] 24.0 mmol/L Normal 21.0-32.0 [facility] Comment on above: Performed By: #### L 501.2300, L501.5200, L500.4050, L100.0100 #### [facility] Laboratory [address] [place], [address] Creatinine [Mass/Vol] 0.64 mg/dL Normal 0.55-1.02 [facility] Comment on above: Result Comment: The validity of the calculated GFR GFRAA in patients over 70 years has not been determined. Clinical correlation is essential. Performed By: #### L 501.2300, L501.5200, L500.4050, L100.0100 #### [facility] Laboratory [address] [place], [address] ECRCL 115.95 ml/min Normal [facility] Comment on above: Performed By: #### L 501.2300, L501.5200, L500.4050, L100.0100 #### [facility] Laboratory [address] [place], [address] EST GFR - AA 138 mL/min Normal >60 [facility] Comment on above: Result Comment: Afri can Citizen Of [place] GFR Calc Performed By: #### L 501.2300, L501.5200, L500.4050, L100.0100 #### [facility] Laboratory [address] [place], [address] GAP 5 Normal 5-15 [facility] Comment on above: Performed By: #### L 501.2300, L501.5200, L500.4050, L100.0100 #### [facility] Laboratory [address] [place], [address] GFR/1.73 sq M.predicted among non-blacks MDRD (S/P/Bld) [Vol rate/Area] 114 mL/min/{1.73_m2} Normal >60 [facility] Comment on above: Result Comment: Non- GFR Calc Performed By: #### L 501.2300, L501.5200, L500.4050, L100.0100 #### [facility] Laboratory [address] [place], [address] Globulin (S) [Mass/Vol] 4.5 g/dL High 2.2-4.2 [facility] Comment on above: Performed By: #### L 501.2300, L501.5200, L500.4050, L100.0100 #### [facility] Laboratory [address] [place], [address] Glucose [Mass/Vol] 99 mg/dL Normal 74-[address] [facility] Comment on above: Performed By: #### L 501.2300, L501.5200, L500.4050, L100.0100 #### [facility] Laboratory [address] [place], [address] Potassium [Moles/Vol] 4.2 mmol/L Normal 3.5-5.1 [facility] Comment on above: Performed By: #### L 501.2300, L501.5200, L500.4050, L100.0100 #### [facility] Laboratory [address] [place], [address] Sodium [Moles/Vol] 139 mmol/L Normal 136-[address] [facility] Comment on above: Performed By: #### L 501.2300, L501.5200, L500.4050, L100.0100 #### [facility] Laboratory [address] [place], [address] T PROT 7.0 g/dL Normal 6.4-8.2 [facility] Comment on above: Performed By: #### L 501.2300, L501.5200, L500.4050, L100.0100 #### [facility] Laboratory [address] [place], [address] Urea nitrogen [Mass/Vol] 6 mg/dL Low 7-18 [facility] Comment on above: Performed By: #### L 501.2300, L501.5200, L500.4050, L100.0100 #### [facility] Laboratory [address] [place], [address] D-Dimer Quantitative (DVT/PE )on 07-14-2024 D-DIMER QUANT 2.16 FEU/ug/m Invalid Interpretation Code 0.27-0.49 [facility] Comment on above: Result Comment: D-Di migdalia ELEVATED (>0.49): Additional studies and clinical assessments are indicated to conclude diagnosis of: Deep Vein Thrombosis (DVT) or Pulmonary Embolism (PE) RESULTS CALLED TO Tressa AGUILA 07/14/24 David4 Jennie Jason. REPORT READ BACK BY . SAME Performed By: #### L 501.2300, L501.5200, L500.4050, L100.0100 #### [facility] Laboratory [address] [place], [address] Emergency Department Summary on 07-14-2024 Emergency Department Summary [facility] Medical Records Department [address] [place] [address] Emergency Department Summary 07/14/24 MR#: [id number] Acct: [id number] Name: MYLES VENEGAS Rep #: [id number] : 1990 34 From: Vj Peter PCP: Care Physician,No Primary Status:ADM IN Location: [address] History of Present Illness Chief Complaint: General Illness Informant: patient and parent Narrative Narrative: Presents here with father 1 week cough over the last 2 weeks symptoms worsening with exertional dyspnea. No fevers. History of anemia she reports hospitalized 18 months ago in [place] is given blood however did not follow-up. No history endoscopies. She is on iron supplements by her PCP. No urinary symptoms. No recent travel, surgeries, immobilizations. No history of PE or DVT. Denies nausea or vomiting.Denies any chest tightness with ambulation. Denies any leg pains recently. Does report history of hypothyroidism however is not taking her medications in a few months. Denies any black or bloody stools. Patient has not had a menstrual period in a year. She has the Mirena. Prior similar symptoms: No PFSH PFSH Medical History Anemia Hypertension Home Medications ???Medication ???Instructions ???Recorded ???Last Taken ???Type chlorpheniramine-pseu doephedrine 2 10 ml PO Q6H 07/14/24 07/14/24 History mg-30 mg/5 mL oral liquid (LoHist - D) ferrous sulfate 325 mg (65 mg 325 mg PO BID 07/14/24 Unknown History iron) tablet (FeroSul) Allergy/AdvReac Type Severity Reaction Status Date / Time No Known Allergies Allergy Verified 07/14/24 21:06 Surgical History History of appendectomy Social History Smoking Status: Current some day smoker tobacco type: cigarettes ROS ROS ED Constitutional Constitutional ED: Denies chills, fever(s) or sweats ENT ENT ED: Denies sore throat Cardiovascular Cardiovascular: Denies chest pain, leg edema, palpitations or racing heartbeat Respiratory/Chest Respiratory/Chest: Reports cough, dyspnea and dyspnea on exertion Gastrointestinal Gastrointestinal: Denies abdominal pain, diarrhea, nausea or vomiting Genitourinary Genitourinary ED: Denies dysuria, hematuria or urinary frequency Musculoskeletal Musculoskeletal: Denies back pain, extremity pain or neck pain Integumentary Denies rash or wounds Neurologic Neurologic: Denies headache(s), paresthesias or weakness EXAM Physical Exam Const Vital Signs: 07/14/24 16:27 07/14/24 16:57 07/14/24 18:27 Temperature 98.7 F Temperature Source Oral Pulse Rate 132 H 123 H Respiratory Rate 16 12 Respiratory Effort Normal Respiratory Pattern Normal Blood Pressure 139/92 H 141/91 H Blood Pressure Mean 107 107 Blood Pressure Source Blood Pressure Position Blood Pressure Location Pulse Ox 98 97 Oxygen Delivery Method Room Air Room Air 07/14/24 20:04 07/14/24 20:05 07/14/24 20:51 Temperature 97.8 F 103.1 F H Temperature Source Oral Pulse Rate 115 H 114 H 117 H Respiratory Rate 24 H 24 H 18 Respiratory Effort Respiratory Pattern Blood Pressure 132/76 H 133/76 H 136/80 H Blood Pressure Mean 94 95 98 Blood Pressure Source Monitor Blood Pressure Position Supine Blood Pressure Location Right Arm Pulse Ox 100 100 96 Oxygen Delivery Method Room Air Room Air Positive well nourished and well developed General Appearance ED: well developed and NAD HEENT Reports moist mucous membranes normocephalic and atraumatic Eyes General Eye ED: Yes normal appearance of both eyes and pale conjunctiva Neck full ROM Chest Wall Chest: Negative for tenderness Resp normal respiratory effort and normal air movement Effort and Inspection: symmetric chest movement; Negative for respiratory distress Cardio regular rhythm and no murmurs Rate: tachycardic Peripheral Pulses: pulses 2+ throughout GI normal to inspection, nondistended, normoactive bowel sounds and non-tender Palpation: Negative for guarding or rebound tenderness present Extremity normal to inspection General Extremety ED: Negative for edema or tenderness General Extremity: Negative for edema Neuro oriented x3, CN's II-XII intact bilaterally and no sensory deficits noted Sensorium / Orientation: awake and alert Skin no rashes or lesions noted and no wounds MDM MDM MDM Narrative Medical decision making narrative: Interventions / MDM: Differential diagnosis: Symptomatic anemia, exertional dyspnea Diagnosis considered but do not suspect: N/A My EKG interpretation: Sinus rate of 109, no ST or T wave changes. Imaging independently revi (more content not included)... Normal [facility] Ferritinon 07-14-2024 Ferritin [Mass/Vol] 10 ng/mL Normal 8-252 [facility] Comment on above: Performed By: #### L 501.2300, L501.5200, L500.4050, L100.0100 #### [facility] Laboratory [address] [place], [address] Folates, (Folic Acid)on 06-20 FOLATES 15.90 ng/mL Normal 3.1-55.4 [facility] Comment on above: Performed By: #### L 501.2300, L501.5200, L500.4050, L100.0100 #### [facility] Laboratory [address] [place], [address] H AND P Exam - Hospitaliston 07-14-2024 H&P Exam - Hospitalist [facility] Medical Records Department [address] [place] [address] H P Exam - Hospitalist 07/14/241944 MR#: [id number] Acct: [id number] Name: MYELS VENEGAS Rep #: [id number] : 1990 34 From: Rajeev Valenzuela DO PCP: Care Physician,No Primary Status:ADM IN Location: [place] [address] HPI - General General Date of Admission: 07/14/24 Date of Service: 07/14/24 Chief Complaint: Worsening EASON x 2 Weeks. 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 Ms. Venegas reports her acute symptoms began approximately 2 weeks prior to admission with increasing dyspnea on exertion. She was noted to be upset about having to have labs drawn so she was reluctant to participate in answering questions during the interview making her a suboptimal historian with her father in the room providing needed emotional support but also not providing additional information. She denies recent bleeding or traumatic injury. She denies a history of colonoscopy and said she has not seen her PCP in over a year. She also denies associated fever, chills, nausea, vomiting, chest pain, history of VTE, black/bloody stools, dysuria or hematuria but she does admit she has not had a period for over a year since her Mirena IUD was placed. In the ER she was noted to have laboratory evidence of Severe Anemia with a critically low hemoglobin of 5 g/dL present on admission in the setting of Chronic Severe LORENA with MCV of 66.4 fL and low iron saturation of 3.7% along with low iron level 4 ug/dL requiring transfusion of PRBC's and IV Venofer complicated by elevated d-dimer of 2.16 present on admission prompting CTA of the chest, abdomen and pelvis with subsequent CT evidence of Bibasilar Pneumonia and Pyelonephritis of the Left kidney compounded by Inflammatory vs Infectious Enteritis along with laboratory evidence of Hyperthyroidism; with undetectable TSH and FT4 of 1.73 ng/dL in the setting of known previous IVDA with Heroin and Methamphetamines plus Tobacco Abuse and she was then admitted to the PCU for ongoing care for a stay that is expected to extend beyond 2 midnights. [facility] Medical History Anemia Hypertension Home Medications ???Medication ???Instructions ???Recorded ???Last Taken ???Type chlorpheniramine-pseu doephedrine 2 10 ml PO Q6H 07/14/24 07/14/24 History mg-30 mg/5 mL oral liquid (LoHist - D) ferrous sulfate 325 mg (65 mg 325 mg PO BID 07/14/24 Unknown History iron) tablet (FeroSul) Allergy/AdvReac Type Severity Reaction Status Date / Time No Known Allergies Allergy Verified 07/14/24 21:06 Surgical History History of appendectomy Social History Smoking Status: Current some day smoker tobacco type: cigarettes ROS ROS Narrative Review of Systems: Constitutional: Patient admits to EASON and generalized weakness but she denies fever or chills. Eyes: Patient denies changes in vision or discharge from eyes. ENT: Patient denies runny nose, sore throat or ear pain. Resp: Patient admits to EASON but she denies cough. CV: Patient denies chest pain, palpitations or heart racing. GI: Patient denies abdominal pain, nausea, vomiting, diarrhea or constipation. : Patient denies dysuria or hematuria. MSK: Patient admits to generalized weakness but she denies arthralgias or myalgias. Skin: Patient admits to pallor but she denies rash, abscess or jaundice. Psych: Patient denies symptoms of uncontrolled depression or anxiety. Neuro: Patient denies headache, paresthesias or focal neurologic deficits. Allergy: Patient denies lip swelling, tongue swelling or urticaria. Hematology: Patient denies blood in stools or urine and claims her LMP was 1 year ago. Endocrinology: Patient denies polyuria, polydipsia or polyphagia. 14 point ROS otherwise negative except for positives noted above in HPI. Vital Signs Vital Signs Vital Signs: 07/14/24 16:27 07/14/24 16:57 07/14/24 18:27 Temperature 98.7 F Temperature Source Oral Pulse Rate 132 H 123 H Respiratory Rate 16 12 Respiratory Effort Normal Respiratory Pattern Normal Blood Pressure 139/92 H 141/91 H Blood Pressure Mean 107 107 Pulse Ox 98 97 Oxygen Delivery Method Room Air Room Air Weight Weight (more content not included)... Normal [facility] Iron+Iron Binding Capacityon 07-14-2024 IRON Normal 50-170 [facility] Comment on above: Order Comment: Has Katalina cho had X-rays with Contrast this admission? NN Result Comment: DUPL ICATE Performed By: #### L 501.2300, L501.5200, L500.4050, L100.0100 #### [facility] [address] [place], [address] IRON SATURATION Normal 15.0-55.0 [facility] Comment on above: Order Comment: Has Katalina cho had X-rays with Contrast this admission? NN Result Comment: DUPL ICATE Performed By: #### L 501.2300, L501.5200, L500.4050, L100.0100 #### [facility] [address] [place], [address] TIBC Normal 250-450 [facility] Comment on above: Order Comment: Has Katalina cho had X-rays with Contrast this admission? NN Result Comment: DUPL ICATE Performed By: #### L 501.2300, L501.5200, L500.4050, L100.0100 #### [facility] [address] [place], [address] Iron [Mass/Vol] 14 ug/dL Low 50-170 [facility] Comment on above: Performed By: #### L 501.2300, L501.5200, L500.4050, L100.0100 #### [facility] [address] [place], [address] IRON SATURATION 3.7 Low 15.0-55.0 [facility] Comment on above: Performed By: #### L 501.2300, L501.5200, L500.4050, L100.0100 #### [facility] [address] [place], [address] TIBC 383 ug/dL Normal 250-450 [facility] Comment on above: Performed By: #### L 501.2300, L501.5200, L500.4050, L100.0100 #### [facility] [address] [place], [address] Lactic Acidon 07-14-2024 Lactate [Moles/Vol] 2.1 mmol/L Invalid Interpretation Code 0.4-1.9 [facility] Comment on above: Order Comment: Y Result Comment: Crit ical Result(s) Called at: 22:54:40 07/14/2024 by: JENNIE JASON. Results read back by Tressa Mccauley Performed By: #### L 501.2300, L501.5200, L500.4050, L100.0100 #### [facility] [address] [place], [address] Partial Thromboplast Timeon 07-14-2024 aPTT Coag (Bld) [Time] 29.2 s Normal 24.1-36.2 [facility] Comment on above: Performed By: #### L 501.2300, L501.5200, L500.4050, L100.0100 #### [facility] [address] [place], [address] ,Serum,hCG Quali.on 07-14-2024 HCG, SERUM QUAL Negative Normal [facility] Comment on above: Performed By: #### L 501.2300, L501.5200, L500.4050, L100.0100 #### [facility] [address] [place], [address] Prothrombin Time w/INRon INR Coag (PPP) [Relative time] 1.1 {INR} Normal [facility] Comment on above: Performed By: #### L 501.2300, L501.5200, L500.4050, L100.0100 #### [facility] [address] [place], [address] PT Coag (PPP) [Time] 14.5 s Normal 11.7-14.9 [facility] Comment on above: Performed By: #### L 501.2300, L501.5200, L500.4050, L100.0100 #### [facility] [address] [place], [address] Stool Occult Blood iFOBon STOB Negative Normal [facility] Comment on above: Performed By: #### L 501.2300, L501.5200, L500.4050, L100.0100 #### [facility] [address] [facility] [place], [address] T4 Free Directon 07-14-2024 T4 FREE DIRECT 1.73 ng/dL High 0.76-1.46 [facility] Comment on above: Performed By: #### L 501.2300, L501.5200, L500.4050, L100.0100 #### [facility] [address] [place], [address] Thyroidon 07-14-2024 Thyroid [facility] [address] [place] [address] Thyroid MR#: [id number] Acct: [id number] Name: MYLES VENEGAS Rep #: [id number] : 1990 F 34 From: Harpreet Flood MD PCP: Care Physician,No Primary Status: ADM IN Study: Thyroid Date of Exam: 07/14/24 Exam# [id number] Ordering Dr: Rajeev Valenzuela DO [id number] STUDY: THYROID ULTRASOUND REASON FOR EXAM: Female, 34 years old. Hyperthyroid; evaluate for nodule or mass. TECHNIQUE: Ultrasound evaluation of the thyroid was performed with real-time and static harman-scale imaging. COMPARISON: CT of the chest 07/14/2024 FINDINGS: RIGHT LOBE: The right lobe of the thyroid gland measures 6.4 x 2.9 x 2.8 cm. There is a homogeneous echotexture. Nodule 1:53 x 26 x 25 mm mixed cystic and solid isoechoic wider than tall ill-defined marginated nodule with no echogenic foci (TR 3) occupying the entire right lobe for which ultrasound-guided biopsy is recommended. LEFT LOBE: The left lobe of the thyroid gland measures 5.6 x 1.4 x 1.4 cm. There is a homogeneous echotexture. Nodule 2:15 x 12 x 10 mm mixed cystic and solid isoechoic wider than tall smoothly marginated nodule with no echogenic foci (TR3) in the superior left lobe and follow-up ultrasound is recommended in 1 year. Nodule 3:10 x 11 x 7 mm solid hypoechoic wider than tall smoothly marginated nodule with no echogenic foci (TR 4) in the mid left lobe and follow-up ultrasound is recommended in 1 year. Nodule 4:14 x 6 x 7 mm solid hypoechoic wider than tall smoothly marginated nodule with no echogenic foci (TR 4) in the inferior left lobe and follow-up ultrasounds recommended one-year period ISTHMUS: The isthmus measures 2 mm thick. Nodule 5:30 x 28 x 15 mm solid isoechoic wider than tall ill-defined margin nodule and no echogenic foci (TR 3) in the right side of the isthmus and ultrasound-guided biopsy is recommended.. The regional lymph nodes are normal. US/Thyroid IMPRESSION: Multinodular thyroid gland. Ultrasound-guided biopsy of dominant nodules in the right lobe and right side of the isthmus is recommended. Follow-up ultrasound is recommended in 1 year. Electronically Signed: Harpreet Flood MD at 18:11 EST , CC: Dr. Rajeev Valenzuela, DO; No Primary Care Physician Boom Man: Signed Normal [facility] Thyroid Stim Hormone (TSH)on 07-14-2024 TSH Qn m[IU]/L Low 0.358-3.740 [facility] Comment on above: Performed By: #### L 501.2300, L501.5200, L500.4050, L100.0100 #### [facility] [address] [place], [address] Type AND Screenon 07-14-2024 ABO and Rh group Nom (Bld) Blood group A Rh(D) positive Normal [facility] Comment on above: Order Comment: KEVIN Rhodes PREVIOUS SPECIMEN REJECTED DUE TOMEDICAL RECORD NUMBER INCORRECT. 07/14/24 Performed By: #### L 501.2300, L501.5200, L500.4050, L100.0100 #### [facility] [address] [place], [address] A1 CELL Not performed Normal [facility] Comment on above: Order Comment: A Result Comment: This specimen has been REJECTED due to Laboratory criteria: MisLabelled-MR # INCORRECT. ED has been notified of need of recollection. 07/14/241910 Performed By: #### L 501.2300, L501.5200, L500.4050, L100.0100 #### [facility] [address] [place], [address] Ab SCREEN GEL Not performed Normal [facility] Comment on above: Order Comment: A Result Comment: This specimen has been REJECTED due to Laboratory criteria: MisLabelled-MR # INCORRECT. ED has been notified of need of recollection. 07/14/241910 Performed By: #### L 501.2300, L501.5200, L500.4050, L100.0100 #### [facility] [address] [place], [address] ABO and Rh group Nom (Bld) Test Not Performed Normal [facility] Comment on above: Order Comment: A Result Comment: This specimen has been REJECTED due to Laboratory criteria: MisLabelled-MR # INCORRECT. ED has been notified of need of recollection. 07/14/241910 Performed By: #### L 501.2300, L501.5200, L500.4050, L100.0100 #### [facility] [address] [place], [address] ANTI A Not performed Normal [facility] Comment on above: Order Comment: A Result Comment: This specimen has been REJECTED due to Laboratory criteria: MisLabelled-MR # INCORRECT. ED has been notified of need of recollection. 07/14/241910 Performed By: #### L 501.2300, L501.5200, L500.4050, L100.0100 #### [facility] [address] [place], [address] ANTI B Not performed Normal [facility] Comment on above: Order Comment: A Result Comment: This specimen has been REJECTED due to Laboratory criteria: MisLabelled-MR # INCORRECT. ED has been notified of need of recollection. 07/14/241910 Performed By: #### L 501.2300, L501.5200, L500.4050, L100.0100 #### [facility] [address] [place], [address] ANTI D Not performed Normal [facility] Comment on above: Order Comment: A Result Comment: This specimen has been REJECTED due to Laboratory criteria: MisLabelled-MR # INCORRECT. ED has been notified of need of recollection. 07/14/241910 Performed By: #### L 501.2300, L501.5200, L500.4050, L100.0100 #### [facility] [address] [place], [address] B CELLS Not performed Normal [facility] Comment on above: Order Comment: A Result Comment: This specimen has been REJECTED due to Laboratory criteria: MisLabelled-MR # INCORRECT. ED has been notified of need of recollection. 07/14/241910 Performed By: #### L 501.2300, L501.5200, L500.4050, L100.0100 #### [facility] [address] [place], [address] Vitamin B12on 07-14-2024 Cobalamin (Vitamin B12) [Mass/Vol] 740 pg/mL Normal 211-911 [facility] Comment on above: Performed By: #### L 501.2300, L501.5200, L500.4050, L100.0100 #### [facility] [address] [place], [address] ECG 12 Leadon 05-12-2023 Atrial Rate [facility] P [place] [facility] P-R Interval [facility] Q-T Interval [facility] Q-T Interval (corrected) [facility] QRS Duration [facility] QTC Calculation (Bezet) [facility] R [place] [facility] T [place] [facility] Ventricular [facility] XR CERVICAL SPINE COMPLETE 4 -5 VIEWS (STANDARD)on 12-02-2022 XR CERVICAL SPINE COMPLETE 4-5 VIEWS (STANDARD) EXAMINATION: XR CERVICAL SPINE COMPLETE 4-5 VIEWS (STANDARD) 12/02/2022 1:18 pm HISTORY: ORDERING SYSTEM PROVIDED HISTORY: Bilateral upper arm radiculitis, TECHNOLOGIST PROVIDED HISTORY: Injury/Trauma Reason for exam: pain Cancer History: u Surgery, RadiationHistory: u Encounter Type: Initial Mechanism of injury: unknown ORDERING SYSTEM PROVIDED DIAGNOSIS CODES: M54.12 Radiculitis, cervical FINDINGS: AP, lateral, bilateral oblique and open-mouth views for 5 views obtained. IMPRESSION: 1. The cervical alignment and curvature are intact. Vertebral body heights and disc spaces are preserved. 2. No acute fracture or subluxation. Prevertebral soft tissues demonstrate no acute abnormality. Lung apices are clear. 3. Poor dentition with numerous missing teeth from the mandible and maxilla as well as numerous scattered dental caries. Multifocal significant periodontal disease suspected. S/ Workstation ID: [id number] Dictated by: BELLE RODRIGUEZ on ThuDecember 02, 2022 2:48:52 PM EDT Transcribed by: ABHI RILEY on ThuDecember 02, 2022 2:52:21 PM EDT Finalized by: BELLE RODRIGUEZ on ThuDecember 02, 2022 3:27:13 PM EDT Normal [facility] Comment on above: Order Comment: Injur y/Trauma or Illness?:Injury/Trauma How long have you had these symptoms (acute/chronic)?:Acute Reason for exam?:pain History of cancer?:u Surgeries, chemotherapy, or radiation?:u Type of Exam?:Initial Mechanism of injury?:unknown CBC Auto Differentialon 0 Basophils (Bld) [#/Vol] 0.06 10*3/uL [facility] Basophils/100 WBC (Bld) 0.9 % [facility] Eosinophils (Bld) [#/Vol] 0.22 10*3/uL [facility] Eosinophils/100 WBC (Bld) 3.3 % [facility] Erythrocyte distribution width (RBC) [Entitic vol] 23.2 % High 11.6 - 14.8 % [facility] Hematocrit (Bld) [Volume fraction] 27.8 % Low 36.0 - 46.0 % [facility] Hemoglobin (Bld) [Mass/Vol] 7.8 g/dL Low 12.0 - 16.0 g/dL [facility] Immature granulocytes (Bld) [#/Vol] 0.11 10*3/uL [facility] Immature granulocytes/100 WBC (Bld) 1.70 % [facility] Comment on above: The IG parameter is the percentage of metamyelocytes, myelocytes and promyelocytes. An immature granulocyte count (IG) of 1% or more suggests the possibility of infection, an IG count of 3% is very likely related to an infection. Interpretation and review of laboratory results Abnormal [facility] Lymphocytes (Bld) [#/Vol] 2.40 10*3/uL [facility] Lymphocytes/100 WBC (Bld) 36.3 % [facility] MCH (RBC) [Entitic mass] 20.9 pg Low 26.0 - 34.0 pg [facility] MCHC (RBC) [Mass/Vol] 28.1 g/dL Low 31.0 - 37.0 g/dL [facility] MCV (RBC) [Entitic vol] 74.3 fL Low 80.0 - 100.0 fL [facility] Monocytes (Bld) [#/Vol] 0.64 10*3/uL [facility] Monocytes/100 WBC (Bld) 9.7 % [facility] Neutrophils (Bld) [#/Vol] 3.19 10*3/uL [facility] Neutrophils/100 WBC (Bld) 48.1 % [facility] Nucleated RBC (Bld) [#/Vol] 0.02 10*3/uL High [facility] Nucleated RBC/100 WBC (Bld) [Ratio] 0.3 % [facility] Platelet mean volume (Bld) [Entitic vol] 9.2 fL Low 9.4 - 12.4 fL [facility] Platelets (Bld) [#/Vol] 379 10*3/uL [facility] RBC (Bld) [#/Vol] 3.74 10*6/uL [facility] WBC (Bld) [#/Vol] 6.62 10*3/uL [facility] CBC panel Auto (Bld)on 11-23 Erythrocyte distribution width (RBC) [Entitic vol] 22.4 % High 11.6 - 14.8 % [facility] Hematocrit (Bld) [Volume fraction] 25.5 % Low 36.0 - 46.0 % [facility] Hemoglobin (Bld) [Mass/Vol] 7.2 g/dL Low 12.0 - 16.0 g/dL [facility] Interpretation and review of laboratory results Abnormal [facility] MCH (RBC) [Entitic mass] 21.0 pg Low 26.0 - 34.0 pg [facility] MCHC (RBC) [Mass/Vol] 28.2 g/dL Low 31.0 - 37.0 g/dL [facility] MCV (RBC) [Entitic vol] 74.3 fL Low 80.0 - 100.0 fL [facility] Nucleated RBC (Bld) [#/Vol] 0.00 10*3/uL [facility] Nucleated RBC/100 WBC (Bld) [Ratio] 0.0 % [facility] Platelet mean volume (Bld) [Entitic vol] 8.7 fL Low 9.4 - 12.4 fL [facility] Platelets (Bld) [#/Vol] 367 10*3/uL [facility] RBC (Bld) [#/Vol] 3.43 10*6/uL Low [facility] WBC (Bld) [#/Vol] 7.00 10*3/uL [facility] CT ABDOMEN WITHOUT CONTRASTo n 11-23-2022 CT ABDOMEN WITHOUT CONTRAST EXAMINATION: CT ABDOMEN WITHOUT CONTRAST 11/23/2022 COMPARISON: CT abdomen and pelvis with IV contrast dated 11/20/2022. MR abdomen without IV contrast dated 11/22/2022. HISTORY: ORDERING SYSTEM PROVIDED HISTORY: Adrenal mass, 1-4cm, incidental, no history of malignancy. ORDERING SYSTEM PROVIDED DIAGNOSIS CODES: R42 Dizziness D64.9 Anemia, unspecified type K92.2 Gastrointestinal hemorrhage, unspecified gastrointestinal hemorrhage type R53.1 Weakness generalized TECHNIQUE: Helical images were obtained through the abdomen without IV contrast. Oral contrast was not given. Multiplanar reconstructions were created. Dose reduction techniques were achieved by using automated exposure control and/or adjustment of mA and/or kV according to patient size and/or use of iterative reconstruction technique. CONTRAST: None given. FINDINGS: The heart is normal in size. The myocardium is relatively dense compared to the cardiac chambers, indicative of a significant underlying anemia. No pericardial effusion is identified. The abdominal aorta remains normal in caliber. The lung bases are clear. No pleural effusion is identified. There is a 1.2 x 1.7 cm nodule in the right adrenal gland that has internal density measurements of -5 Hounsfield units on this unenhanced study, indicative of a benign lipid-rich adenoma. No significant abnormality is identified in the left adrenal gland, kidneys, pancreas, spleen, or liver. No calcified gallstones, gallbladder wall thickening, or biliary ductal dilatation is identified. There is a moderate amount of retained stool in the visualized portions of the colon. A staple line from appendectomy is seen along the posterior cecum. There are scattered top normal sized retroperitoneal lymph nodes, likely reactive. No ascites or free intraperitoneal gas is identified. No suspicious osseous lesions are identified. IMPRESSION: 1. Small right adrenal nodule that has density measurements compatible with a benign lipid-rich adenoma. 2. Moderate amount retained stool in the colon, raising concern for a motility disorder/constipation . No acute process is otherwise identified in the abdomen. 3. Evidence of significant underlying anemia. DSS/lab Workstation ID: [id number] Dictated by: YONA FISHER on Bernard November 23, 2022 11:44:44 AM EDT Transcribed by: JONNATHAN CHILEL on Bernard November 23, 2022 12:22:22 PM EDT Finalized by: YOAN FISHER on Bernard November 23, 2022 12:48:05 PM EDT [facility] Comment on above: Order Comment: Injur y/Trauma or Illness?:Illness/Other How long have you had these symptoms (acute/chronic)?:Acute Reason for exam?:Adrenal mass, 1-4cm, incidental, no history of malignancy Type of Exam?:Subsequent/Follow-up Additional signs and symptoms?:. CT Abdomen Without Contrasto n 11-23-2022 1. Small right adrenal nodule that has density measurements compatible with a benign lipid-rich adenoma. 2. Moderate amount retained stool in the colon, raising concern for a motility disorder/constipation . No acute process is otherwise identified in the abdomen. 3. Evidence of significant underlying anemia. DSS/lab Workstation ID: [id number] knowNormal EXAMINATION: CT ABDOMEN WITHOUT CONTRAST 11/23/2022 COMPARISON: CT abdomen and pelvis with IV contrast dated 11/20/2022. MR abdomen without IV contrast dated 11/22/2022. HISTORY: ORDERING SYSTEM PROVIDED HISTORY: Adrenal mass, 1-4cm, incidental, no history of malignancy. ORDERING SYSTEM PROVIDED DIAGNOSIS CODES: R42 Dizziness D64.9 Anemia, unspecified type K92.2 Gastrointestinal hemorrhage, unspecified gastrointestinal hemorrhage type R53.1 Weakness generalized TECHNIQUE: Helical images were obtained through the abdomen without IV contrast. Oral contrast was not given. Multiplanar reconstructions were created. Dose reduction techniques were achieved by using automated exposure control and/or adjustment of mA and/or kV according to patient size and/or use of iterative reconstruction technique. CONTRAST: None given. FINDINGS: The heart is normal in size. The myocardium is relatively dense compared to the cardiac chambers, indicative of a significant underlying anemia. No pericardial effusion is identified. The abdominal aorta remains normal in caliber. The lung bases are clear. No pleural effusion is identified. There is a 1.2 x 1.7 cm nodule in the right adrenal gland that has internal density measurements of -5 Hounsfield units on this unenhanced study, indicative of a benign lipid-rich adenoma. No significant abnormality is identified in the left adrenal gland, kidneys, pancreas, spleen, or liver. No calcified gallstones, gallbladder wall thickening, or biliary ductal dilatation is identified. There is a moderate amount of retained stool in the visualized portions of the colon. A staple line from appendectomy is seen along the posterior cecum. There are scattered top normal sized retroperitoneal lymph nodes, likely reactive. No ascites or free intraperitoneal gas is identified. No suspicious osseous lesions are identified. [employer] [facility] Yoan Fisher MD - 11/23/2022 EXAMINATION: CT ABDOMEN WITHOUT CONTRAST 11/23/2022 COMPARISON: CT abdomen and pelvis with IV contrast dated 11/20/2022. MR abdomen without IV contrast dated 11/22/2022. HISTORY: ORDERING SYSTEM PROVIDED HISTORY: Adrenal mass, 1-4cm, incidental, no history of malignancy. ORDERING SYSTEM PROVIDED DIAGNOSIS CODES: R42 Dizziness D64.9 Anemia, unspecified type K92.2 Gastrointestinal hemorrhage, unspecified gastrointestinal hemorrhage type R53.1 Weakness generalized TECHNIQUE: Helical images were obtained through the abdomen without IV contrast. Oral contrast was not given. Multiplanar reconstructions were created. Dose reduction techniques were achieved by using automated exposure control and/or adjustment of mA and/or kV according to patient size and/or use of iterative reconstruction technique. CONTRAST: None given. FINDINGS: The heart is normal in size. The myocardium is relatively dense compared to the cardiac chambers, indicative of a significant underlying anemia. No pericardial effusion is identified. The abdominal aorta remains normal in caliber. The lung bases are clear. No pleural effusion is identified. There is a 1.2 x 1.7 cm nodule in the right adrenal gland that has internal density measurements of -5 Hounsfield units on this unenhanced study, indicative of a benign lipid-rich adenoma. No significant abnormality is identified in the left adrenal gland, kidneys, pancreas, spleen, or liver. No calcified gallstones, gallbladder wall thickening, or biliary ductal dilatation is identified. There is a moderate amount of retained stool in the visualized portions of the colon. A staple line from appendectomy is seen along the posterior cecum. There are scattered top normal sized retroperitoneal lymph nodes, likely reactive. No ascites or free intraperitoneal gas is identified. No suspicious osseous lesions are identified. IMPRESSION: 1. Small right adrenal nodule that has density measurements compatible with a benign lipid-rich adenoma. 2. Moderate amount retained stool in the colon, raising concern for a motility disorder/constipation . No acute process is otherwise identified in the abdomen. 3. Evidence of significant underlying anemia. DSS/lab Workstation ID: [id number] [facility] Radiology Study observation (narrative) [facility] CT Abdomen Without ContrastO rdered By: Yoan Fisher on 11-23-2022 [facility] Work Phone: Comprehensive metabolic 2000 panelon 11-23-2022 Albumin [Mass/Vol] 3.3 g/dL 3.2 - 5.2 g/dL [facility] ALP [Catalytic activity/Vol] 76 U/L 40 - 140 U/L [facility] ALT [Catalytic activity/Vol] 27 U/L 14 - 65 U/L [facility] Anion gap [Moles/Vol] 8 mmol/L Low 10 - 20 mmol/L [facility] AST [Catalytic activity/Vol] 18 U/L 0 - 45 U/L [facility] Bilirubin [Mass/Vol] 0.3 mg/dL 0.0 - 1 .3 mg/dL [facility] Calcium [Mass/Vol] 9.1 mg/dL 8.4 - 10. 2 mg/dL [facility] Chloride [Moles/Vol] 113 mmol/L High 98 - 10 8 mmol/L [facility] Creatinine [Mass/Vol] 0.34 mg/dL Low 0.40 - 1.10 mg/dL [facility] GFR/1.73 sq M.predicted CKD-EPI (S/P/Bld) [Vol rate/Area] 140 - PINF [facility] Comment on above: Estimated GFR was ca lculated using the 2020 CKD-EPI creatinine equation. Glucose [Mass/Vol] 89 mg/dL 65 - 99 mg/dL [facility] HCO3 [Moles/Vol] 23 mmol/L 21 - 32 mmol/L [facility] Interpretation and review of laboratory results Abnormal [facility] Potassium [Moles/Vol] 3.9 mmol/L 3.5 - 5.1 mmol/L [facility] Protein [Mass/Vol] 7.2 g/dL 6.0 - 8.0 g/dL [facility] Sodium [Moles/Vol] 140 mmol/L 135 - 145 mmol/L [facility] Urea nitrogen [Mass/Vol] 8 mg/dL 8 - 25 mg/dL [facility] Urea nitrogen/Creatinine [Mass ratio] 23.5 mg/mg High 10.0 - 20.[address] [facility] Services has implemented the eGFR calculation approach that does not have a coefficient for race that conforms to the NKF-ASN Task Force Recommendations. [facility] Magnesium Levelon 11-23-2022 Magnesium [Mass/Vol] 1.9 mg/dL 1.6 - 2 .4 mg/dL [facility] Magnesium [Mass/Vol]on 11-23 Interpretation and review of laboratory results Normal [facility] No Panel Informationon 11-23 [facility] CBC Auto Differentialon Basophils (Bld) [#/Vol] 0.05 10*3/uL [facility] Basophils/100 WBC (Bld) 1.0 % [facility] Eosinophils (Bld) [#/Vol] 0.15 10*3/uL [facility] Eosinophils/100 WBC (Bld) 2.9 % [facility] Erythrocyte distribution width (RBC) [Entitic vol] 21.6 % High 11.6 - 14.8 % [facility] Hematocrit (Bld) [Volume fraction] 24.7 % Low 36.0 - 46.0 % [facility] Hemoglobin (Bld) [Mass/Vol] 7.1 g/dL Low 12.0 - 16.0 g/dL [facility] Immature granulocytes (Bld) [#/Vol] 0.03 10*3/uL [facility] Immature granulocytes/100 WBC (Bld) 0.60 % [facility] Comment on above: The IG parameter is the percentage of metamyelocytes, myelocytes and promyelocytes. An immature granulocyte count (IG) of 1% or more suggests the possibility of infection, an IG count of 3% is very likely related to an infection. Interpretation and review of laboratory results Abnormal [facility] Lymphocytes (Bld) [#/Vol] 2.16 10*3/uL [facility] Lymphocytes/100 WBC (Bld) 41.2 % [facility] MCH (RBC) [Entitic mass] 20.7 pg Low 26.0 - 34.0 pg [facility] MCHC (RBC) [Mass/Vol] 28.7 g/dL Low 31.0 - 37.0 g/dL [facility] MCV (RBC) [Entitic vol] 72.0 fL Low 80.0 - 100.0 fL [facility] Monocytes (Bld) [#/Vol] 0.62 10*3/uL [facility] Monocytes/100 WBC (Bld) 11.8 % [facility] Neutrophils (Bld) [#/Vol] 2.23 10*3/uL [facility] Neutrophils/100 WBC (Bld) 42.5 % [facility] Nucleated RBC (Bld) [#/Vol] 0.00 10*3/uL [facility] Nucleated RBC/100 WBC (Bld) [Ratio] 0.0 % [facility] Platelet mean volume (Bld) [Entitic vol] 8.8 fL Low 9.4 - 12.4 fL [facility] Platelets (Bld) [#/Vol] 331 10*3/uL [facility] RBC (Bld) [#/Vol] 3.43 10*6/uL [facility] WBC (Bld) [#/Vol] 5.24 10*3/uL [facility] CBC panel Auto (Bld)on 11-22 Erythrocyte distribution width (RBC) [Entitic vol] 21.9 % High 11.6 - 14.8 % [facility] Hematocrit (Bld) [Volume fraction] 26.4 % Low 36.0 - 46.0 % [facility] Hemoglobin (Bld) [Mass/Vol] 7.5 g/dL Low 12.0 - 16.0 g/dL [facility] Interpretation and review of laboratory results Abnormal [facility] MCH (RBC) [Entitic mass] 20.9 pg Low 26.0 - 34.0 pg [facility] MCHC (RBC) [Mass/Vol] 28.4 g/dL Low 31.0 - 37.0 g/dL [facility] MCV (RBC) [Entitic vol] 73.5 fL Low 80.0 - 100.0 fL [facility] Nucleated RBC (Bld) [#/Vol] 0.02 10*3/uL High [facility] Nucleated RBC/100 WBC (Bld) [Ratio] 0.3 % [facility] Platelet mean volume (Bld) [Entitic vol] 8.7 fL Low 9.4 - 12.4 fL [facility] Platelets (Bld) [#/Vol] 358 10*3/uL [facility] RBC (Bld) [#/Vol] 3.59 10*6/uL Low [facility] WBC (Bld) [#/Vol] 7.01 10*3/uL [facility] Erythrocyte distribution width (RBC) [Entitic vol] 22.3 % High 11.6 - 14.8 % [facility] Hematocrit (Bld) [Volume fraction] 29.0 % Low 36.0 - 46.0 % [facility] Hemoglobin (Bld) [Mass/Vol] 8.2 g/dL Low 12.0 - 16.0 g/dL [facility] Interpretation and review of laboratory results Abnormal [facility] MCH (RBC) [Entitic mass] 20.8 pg Low 26.0 - 34.0 pg [facility] MCHC (RBC) [Mass/Vol] 28.3 g/dL Low 31.0 - 37.0 g/dL [facility] MCV (RBC) [Entitic vol] 73.6 fL Low 80.0 - 100.0 fL [facility] Nucleated RBC (Bld) [#/Vol] 0.00 10*3/uL [facility] Nucleated RBC/100 WBC (Bld) [Ratio] 0.0 % [facility] Platelet mean volume (Bld) [Entitic vol] 9.3 fL Low 9.4 - 12.4 fL [facility] Platelets (Bld) [#/Vol] 418 10*3/uL High [facility] RBC (Bld) [#/Vol] 3.94 10*6/uL Low [facility] WBC (Bld) [#/Vol] 6.56 10*3/uL [facility] Erythrocyte distribution width (RBC) [Entitic vol] 21.2 % High 11.6 - 14.8 % [facility] Hematocrit (Bld) [Volume fraction] 26.1 % Low 36.0 - 46.0 % [facility] Hemoglobin (Bld) [Mass/Vol] 7.4 g/dL Low 12.0 - 16.0 g/dL [facility] Interpretation and review of laboratory results Abnormal [facility] MCH (RBC) [Entitic mass] 20.6 pg Low 26.0 - 34.0 pg [facility] MCHC (RBC) [Mass/Vol] 28.4 g/dL Low 31.0 - 37.0 g/dL [facility] MCV (RBC) [Entitic vol] 72.7 fL Low 80.0 - 100.0 fL [facility] Nucleated RBC (Bld) [#/Vol] 0.00 10*3/uL [facility] Nucleated RBC/100 WBC (Bld) [Ratio] 0.0 % [facility] Platelet mean volume (Bld) [Entitic vol] 8.6 fL Low 9.4 - 12.4 fL [facility] Platelets (Bld) [#/Vol] 389 10*3/uL [facility] RBC (Bld) [#/Vol] 3.59 10*6/uL Low [facility] WBC (Bld) [#/Vol] 7.21 10*3/uL [facility] Comprehensive metabolic 2000 panelon 11-22-2022 Albumin [Mass/Vol] 2.9 g/dL Low 3.2 - 5.2 g/dL [facility] ALP [Catalytic activity/Vol] 70 U/L 40 - 140 U/L [facility] ALT [Catalytic activity/Vol] 26 U/L 14 - 65 U/L [facility] Anion gap [Moles/Vol] 11 mmol/L 10 - 20 mmol/L [facility] AST [Catalytic activity/Vol] 15 U/L 0 - 45 U/L [facility] Bilirubin [Mass/Vol] 0.3 mg/dL 0.0 - 1 .3 mg/dL [facility] Calcium [Mass/Vol] 8.7 mg/dL 8.4 - 10. 2 mg/dL [facility] Chloride [Moles/Vol] 111 mmol/L High 98 - 10 8 mmol/L [facility] Creatinine [Mass/Vol] 0.38 mg/dL Low 0.40 - 1.10 mg/dL [facility] GFR/1.73 sq M.predicted CKD-EPI (S/P/Bld) [Vol rate/Area] 137 - PINF [facility] Comment on above: Estimated GFR was ca lculated using the 2020 CKD-EPI creatinine equation. Glucose [Mass/Vol] 97 mg/dL 65 - 99 mg/dL [facility] [Moles/Vol] 24 mmol/L 21 - 32 mmol/L [facility] Interpretation and review of laboratory results Abnormal [facility] Potassium [Moles/Vol] 4.0 mmol/L 3.5 - 5.1 mmol/L [facility] Protein [Mass/Vol] 6.5 g/dL 6.0 - 8.0 g/dL [facility] Sodium [Moles/Vol] 142 mmol/L 135 - 145 mmol/L [facility] Urea nitrogen [Mass/Vol] 9 mg/dL 8 - 25 mg/dL [facility] Urea nitrogen/Creatinine [Mass ratio] 23.7 mg/mg High 10.0 - 20.[address] [facility] has implemented the eGFR calculation approach that does not have a coefficient for race that conforms to the NKF-ASN Task Force Recommendations. [facility] Laboratory - Blood bankon ABO and Rh group Nom (Bld) 6200 [facility] ABO and Rh group Nom (Bld) Blood group A Rh(D) positive [facility] MR ADRENAL GLANDS WITHOUT CO NTRASTon 11-22-2022 MR ADRENAL GLANDS WITHOUT CONTRAST EXAMINATION: MR ADRENAL GLANDS WITHOUT CONTRAST HISTORY: ORDERING SYSTEM PROVIDED HISTORY: Adrenal mass, TECHNOLOGIST PROVIDED HISTORY: Illness/Other Reason for exam: Abnormal CT Encounter Type: Initial Additional signs and symptoms: na ORDERING SYSTEM PROVIDED DIAGNOSIS CODES: R42 Dizziness D64.9 Anemia, unspecified type K92.2 Gastrointestinal hemorrhage, unspecified gastrointestinal hemorrhage type R53.1 Weakness generalized COMPARISON: CT abdomen pelvis 11/20/2022. TECHNIQUE: Multiplanar, multisequence MR imaging of the abdomen was performed without IV contrast. FINDINGS: The study is limited by motion artifact. The liver is normal size. No discrete lesion identified. The gallbladder is nondistended. No filling defect identified. The visualized spleen and pancreas are unremarkable. The adrenal glands are obscured on most sequences. There is redemonstration of a 15 mm right adrenal nodule. Kidneys demonstrate no hydronephrosis. No enlarged retroperitoneal adenopathy. Visualized portions of the small bowel and colon are unremarkable. Visualized portions of the lower thorax are unremarkable. Osseous structures appear intact. IMPRESSION: Motion limited study is nondiagnostic for evaluation of adrenal nodule. Contrast-enhanced adrenal-protocol CT is suggested for further evaluation. No acute abdominal process identified. [facility]/jcw Workstation ID: [id number] Dictated by: ESTEE DAILEY on Sat November 22, 2022 3:10:50 PM EDT Transcribed by: MAYURI INGRAM on Sat November 22, 2022 3:19:14 PM EDT Finalized by: ESTEE DAILEY on Sat November 22, 2022 4:03:19 PM EDT Normal [facility] Comment on above: Order Comment: Injur y/Trauma or Illness?:Illness/Other How long have you had these symptoms (acute/chronic)?:Unknown Reason for exam?:Abnormal CT Type of Exam?:Initial Additional signs and symptoms?:na MR Adrenal Glands Without Co ntraston 11-22-2022 EXAMINATION: MR ADRENAL GLANDS WITHOUT CONTRAST HISTORY: ORDERING SYSTEM PROVIDED HISTORY: Adrenal mass, TECHNOLOGIST PROVIDED HISTORY: Illness/Other Reason for exam: Abnormal CT Encounter Type: Initial Additional signs and symptoms: na ORDERING SYSTEM PROVIDED DIAGNOSIS CODES: R42 Dizziness D64.9 Anemia, unspecified type K92.2 Gastrointestinal hemorrhage, unspecified gastrointestinal hemorrhage type R53.1 Weakness generalized COMPARISON: CT abdomen pelvis 11/20/2022. TECHNIQUE: Multiplanar, multisequence MR imaging of the abdomen was performed without IV contrast. FINDINGS: The study is limited by motion artifact. The liver is normal size. No discrete lesion identified. The gallbladder is nondistended. No filling defect identified. The visualized spleen and pancreas are unremarkable. The adrenal glands are obscured on most sequences. There is redemonstration of a 15 mm right adrenal nodule. Kidneys demonstrate no hydronephrosis. No enlarged retroperitoneal adenopathy. Visualized portions of the small bowel and colon are unremarkable. Visualized portions of the lower thorax are unremarkable. Osseous structures appear intact. knowNormal Estee Dailey M D - 11/22/2022 EXAMINATION: MR ADRENAL GLANDS WITHOUT CONTRAST HISTORY: ORDERING SYSTEM PROVIDED HISTORY: Adrenal mass, TECHNOLOGIST PROVIDED HISTORY: Illness/Other Reason for exam: Abnormal CT Encounter Type: Initial Additional signs and symptoms: na ORDERING SYSTEM PROVIDED DIAGNOSIS CODES: R42 Dizziness D64.9 Anemia, unspecified type K92.2 Gastrointestinal hemorrhage, unspecified gastrointestinal hemorrhage type R53.1 Weakness generalized COMPARISON: CT abdomen pelvis 11/20/2022. TECHNIQUE: Multiplanar, multisequence MR imaging of the abdomen was performed without IV contrast. FINDINGS: The study is limited by motion artifact. The liver is normal size. No discrete lesion identified. The gallbladder is nondistended. No filling defect identified. The visualized spleen and pancreas are unremarkable. The adrenal glands are obscured on most sequences. There is redemonstration of a 15 mm right adrenal nodule. Kidneys demonstrate no hydronephrosis. No enlarged retroperitoneal adenopathy. Visualized portions of the small bowel and colon are unremarkable. Visualized portions of the lower thorax are unremarkable. Osseous structures appear intact. IMPRESSION: Motion limited study is nondiagnostic for evaluation of adrenal nodule. Contrast-enhanced adrenal-protocol CT is suggested for further evaluation. No acute abdominal process identified. [facility]/jcw Workstation ID: [id number] [facility] Radiology Study observation (narrative) [facility] MR Adrenal Glands Without Co ntrastOrdered By: Estee Dailey on 11-22-2022 [facility] Work Phone: Magnesium Levelon 11-22-2022 Magnesium [Mass/Vol] 1.8 mg/dL 1.6 - 2 .4 mg/dL [facility] Magnesium [Mass/Vol]on 11-22 Interpretation and review of laboratory results Normal [facility] No Panel Informationon 11-22 [facility] Cross Match Compatible [facility] Product Code [id number] [facility] Product ID Red Blood Cells [facility] h Status Info Transfused [facility] Prepare RBC: 2 Unitson 11-22 Unit Number [id number] [facility] Unit Number [id number] [facility] ACTHon 11-21-2022 Corticotropin (P) [Mass/Vol] 20.1 pg/mL 7.2 - 63.3 pg/mL [facility] Interpretation and review of laboratory results Normal [facility] APTTon 11-21-2022 aPTT Coag (Bld) [Time] 27 s [facility] Basic metabolic 2000 panelon 11-21-2022 Anion gap [Moles/Vol] 10 mmol/L 10 - 20 mmol/L [facility] Calcium [Mass/Vol] 8.9 mg/dL 8.4 - 10. 2 mg/dL [facility] Chloride [Moles/Vol] 112 mmol/L High 98 - 10 8 mmol/L [facility] Creatinine [Mass/Vol] 0.34 mg/dL Low 0.40 - 1.10 mg/dL [facility] GFR/1.73 sq M.predicted CKD-EPI (S/P/Bld) [Vol rate/Area] 140 - PINF [facility] Comment on above: Estimated GFR was ca lculated using the 2020 CKD-EPI creatinine equation. Glucose [Mass/Vol] 83 mg/dL 65 - 99 mg/dL [facility] HCO3 [Moles/Vol] 23 mmol/L 21 - 32 mmol/L [facility] Interpretation and review of laboratory results Abnormal [facility] Potassium [Moles/Vol] 3.9 mmol/L 3.5 - 5.1 mmol/L [facility] Sodium [Moles/Vol] 141 mmol/L 135 - 145 mmol/L [facility] Urea nitrogen [Mass/Vol] 7 mg/dL Low 8 - 25 mg/dL [facility] Urea nitrogen/Creatinine [Mass ratio] 20.6 mg/mg High 10.0 - 20.[address] [facility] has implemented the eGFR calculation approach that does not have a coefficient for race that conforms to the NKF-ASN Task Force Recommendations. [facility] CBC panel Auto (Bld)on 11-21 Erythrocyte distribution width (RBC) [Entitic vol] 21.1 % High 11.6 - 14.8 % [facility] Hematocrit (Bld) [Volume fraction] 26.7 % Low 36.0 - 46.0 % [facility] Hemoglobin (Bld) [Mass/Vol] 7.6 g/dL Low 12.0 - 16.0 g/dL [facility] Interpretation and review of laboratory results Abnormal [facility] MCH (RBC) [Entitic mass] 20.5 pg Low 26.0 - 34.0 pg [facility] MCHC (RBC) [Mass/Vol] 28.5 g/dL Low 31.0 - 37.0 g/dL [facility] MCV (RBC) [Entitic vol] 72.2 fL Low 80.0 - 100.0 fL [facility] Nucleated RBC (Bld) [#/Vol] 0.02 10*3/uL High [facility] Nucleated RBC/100 WBC (Bld) [Ratio] 0.3 % [facility] Platelet mean volume (Bld) [Entitic vol] 9.0 fL Low 9.4 - 12.4 fL [facility] Platelets (Bld) [#/Vol] 399 10*3/uL [facility] RBC (Bld) [#/Vol] 3.70 10*6/uL Low [facility] WBC (Bld) [#/Vol] 6.48 10*3/uL [facility] Erythrocyte distribution width (RBC) [Entitic vol] 20.7 % High 11.6 - 14.8 % [facility] Hematocrit (Bld) [Volume fraction] 26.6 % Low 36.0 - 46.0 % [facility] Hemoglobin (Bld) [Mass/Vol] 7.7 g/dL Low 12.0 - 16.0 g/dL [facility] Interpretation and review of laboratory results Abnormal [facility] MCH (RBC) [Entitic mass] 21.0 pg Low 26.0 - 34.0 pg [facility] MCHC (RBC) [Mass/Vol] 28.9 g/dL Low 31.0 - 37.0 g/dL [facility] MCV (RBC) [Entitic vol] 72.7 fL Low 80.0 - 100.0 fL [facility] Nucleated RBC (Bld) [#/Vol] 0.00 10*3/uL [facility] Nucleated RBC/100 WBC (Bld) [Ratio] 0.0 % [facility] Platelet mean volume (Bld) [Entitic vol] 9.1 fL Low 9.4 - 12.4 fL [facility] Platelets (Bld) [#/Vol] 394 10*3/uL [facility] RBC (Bld) [#/Vol] 3.66 10*6/uL Low [facility] WBC (Bld) [#/Vol] 5.17 10*3/uL [facility] Erythrocyte distribution width (RBC) [Entitic vol] 20.3 % High 11.6 - 14.8 % [facility] Hematocrit (Bld) [Volume fraction] 24.2 % Low 36.0 - 46.0 % [facility] Hemoglobin (Bld) [Mass/Vol] 7.2 g/dL Low 12.0 - 16.0 g/dL [facility] Interpretation and review of laboratory results Abnormal [facility] MCH (RBC) [Entitic mass] 21.2 pg Low 26.0 - 34.0 pg [facility] MCHC (RBC) [Mass/Vol] 29.8 g/dL Low 31.0 - 37.0 g/dL [facility] MCV (RBC) [Entitic vol] 71.4 fL Low 80.0 - 100.0 fL [facility] Nucleated RBC (Bld) [#/Vol] 0.00 10*3/uL [facility] Nucleated RBC/100 WBC (Bld) [Ratio] 0.0 % [facility] Platelet mean volume (Bld) [Entitic vol] 8.5 fL Low 9.4 - 12.4 fL [facility] Platelets (Bld) [#/Vol] 345 10*3/uL [facility] RBC (Bld) [#/Vol] 3.39 10*6/uL Low [facility] ealt WBC (Bld) [#/Vol] 5.43 10*3/uL [facility] Free T4 [Mass/Vol]on 023 Interpretation and review of laboratory results Normal [facility] Hepatitis Be Antibodyon HBe Antibody Negative Negative [facility] Comment on above: Test Performed by: [facility] [address] [place] [address] [employer] Analyst: Bret Smith M.D. Ph.D.; CLIA# [id number] [facility] INR Coag (PPP) [Relative reginaldo e]on 11-21-2022 Interpretation and review of laboratory results Normal [facility] PT Coag (PPP) [Time] 14.1 s [facility] During the induction phase of oral anticoagulation, the INR may not reflect the anticoagulation status of the patient. Therapeutic ranges for INR's are: Most clinical situations: INR 2.0-3.0 Mechanical Prosthetic Valve: INR 2.5-3.5 Critical: INR >5.[address] [facility] Magnesiumon 11-21-2022 Magnesium [Mass/Vol] 2.1 mg/dL 1.6 - 2 .4 mg/dL [facility] No Panel Informationon 11-21 [facility] Interpretation and review of laboratory results Normal [facility] Occult Blood Stool Immunoass ay (Jayy Samson, Brittnee Only)Ordered By: Arelis Anne on 11-21-2022 Hemoglobin.gastroint estinal Ql (Stl) Negative Negative for Occult Blood [facility] Interpretation and review of laboratory results Normal [facility] PT/INRon 11-21-2022 INR Coag (PPP) [Relative time] 1.1 {INR} 0.8 - 1.1 [facility] Phosphoruson 11-21-2022 Phosphate [Mass/Vol] 3.9 mg/dL 2.7 - 4 .5 mg/dL [facility] T4, Freeon 11-21-2022 Free T4 [Mass/Vol] 1.3 ng/dL 0.7 - 1.7 ng/dL [facility] TSH DL <= 0.005 mIU/L Qnon 0 11-21-2022 Interpretation and review of laboratory results Abnormal [facility] TSH Qn Low [facility] aPTT Coag (Bld) [Time]on Interpretation and review of laboratory results Normal [facility] Therapeutic range fo r APTT's is 68 - [address] [facility] ABORH Verificationon 023 ABO and Rh group Nom (Bld) Blood group A Rh(D) positive [facility] ABO and Rh group Nom (Bld) ABO/Rh Verification [facility] Comment on above: Patient's ABO/Rh is verified. [facility] Alcohol, Medicalon Ethanol [Mass/Vol] mg/dL NINF - 10 .00 mg/dL [facility] Comment on above: Alcohol cutoff: <10. 00 mg/dL = None Detected B12/Folateon 11-20-2022 Cobalamin (Vitamin B12) [Mass/Vol] 333 pg/mL 193 - 986 pg/mL [facility] Folate [Mass/Vol] 11.4 ng/mL 3.1 - 17.5 ng/mL [facility] Comment on above: Deficient <2.2 Borderline 2.2 - 3.0 Excessive >17.5 Interpretation and review of laboratory results Normal [facility] Basic metabolic 1998 panelon 11-20-2022 Anion gap [Moles/Vol] 10 mmol/L 10 - 20 mmol/L [facility] Chloride [Moles/Vol] 109 mmol/L High 98 - 10 8 mmol/L [facility] Creatinine [Mass/Vol] 0.49 mg/dL 0.40 - 1.10 mg/dL [facility] GFR/1.73 sq M.predicted CKD-EPI (S/P/Bld) [Vol rate/Area] 129 - PINF [facility] Comment on above: Estimated GFR was ca lculated using the 2020 CKD-EPI creatinine equation. Glucose [Mass/Vol] 97 mg/dL 65 - 99 mg/dL [facility] HCO3 [Moles/Vol] 24 mmol/L 21 - 32 mmol/L [facility] Potassium [Moles/Vol] 4.4 mmol/L 3.5 - 5.1 mmol/L [facility] Sodium [Moles/Vol] 139 mmol/L 135 - 145 mmol/L [facility] Urea nitrogen [Mass/Vol] 11 mg/dL 8 - 25 mg/dL [facility] Urea nitrogen/Creatinine [Mass ratio] 22.4 mg/mg High 10.0 - 20.[address] [facility] Laborator y Services has implemented the eGFR calculation approach that does not have a coefficient for race that conforms to the NKF-ASN Task Force Recommendations. [facility] Blood type and Indirect anti body screen panel (Bld)on 11-20-2022 ABO and Rh group Nom (Bld) Blood group A Rh(D) positive [facility] Blood group antibody screen Ql Negative [facility] Specimen Expires 11/23/2022 23:[address] [facility] CBC Auto Differentialon Basophils (Bld) [#/Vol] 0.06 10*3/uL [facility] Basophils/100 WBC (Bld) 0.8 % [facility] Eosinophils (Bld) [#/Vol] 0.11 10*3/uL [facility] Eosinophils/100 WBC (Bld) 1.4 % [facility] Erythrocyte distribution width (RBC) [Entitic vol] 18.6 % High 11.6 - 14.8 % [facility] Hematocrit (Bld) [Volume fraction] 20.6 % Low 36.0 - 46.0 % [facility] Hemoglobin (Bld) [Mass/Vol] 5.5 g/dL Critically low 12.0 - 16.0 g/dL [facility] Comment on above: Results called and r ead back verified by:.[id number] Immature granulocytes (Bld) [#/Vol] 0.05 10*3/uL [facility] Immature granulocytes/100 WBC (Bld) 0.70 % [facility] Comment on above: The IG parameter is the percentage of metamyelocytes, myelocytes and promyelocytes. An immature granulocyte count (IG) of 1% or more suggests the possibility of infection, an IG count of 3% is very likely related to an infection. Interpretation and review of laboratory results Abnormal [facility] Lymphocytes (Bld) [#/Vol] 2.35 10*3/uL [facility] Lymphocytes/100 WBC (Bld) 31.0 % [facility] MCH (RBC) [Entitic mass] 18.2 pg Low 26.0 - 34.0 pg [facility] MCHC (RBC) [Mass/Vol] 26.7 g/dL Low 31.0 - 37.0 g/dL [facility] MCV (RBC) [Entitic vol] 68.2 fL Low 80.0 - 100.0 fL [facility] Monocytes (Bld) [#/Vol] 0.59 10*3/uL [facility] Monocytes/100 WBC (Bld) 7.8 % [facility] Neutrophils (Bld) [#/Vol] 4.43 10*3/uL [facility] Neutrophils/100 WBC (Bld) 58.3 % [facility] Nucleated RBC (Bld) [#/Vol] 0.00 10*3/uL [facility] Nucleated RBC/100 WBC (Bld) [Ratio] 0.0 % [facility] Platelet mean volume (Bld) [Entitic vol] 8.8 fL Low 9.4 - 12.4 fL [facility] Platelets (Bld) [#/Vol] 449 10*3/uL High [facility] RBC (Bld) [#/Vol] 3.02 10*6/uL Low [facility] WBC (Bld) [#/Vol] 7.59 10*3/uL [facility] CBC and Diff Morphologyon Polychromasia LM Ql (Bld) Few [facility] RBC morphology finding Nom (Bld) See Comment [facility] Comment on above: RBC Indices confirme d with manual peripheral smear review. Target cells LM Ql (Bld) Few [facility] CBC panel Auto (Bld)on 11-20 Erythrocyte distribution width (RBC) [Entitic vol] 21.1 % High 11.6 - 14.8 % [facility] Hematocrit (Bld) [Volume fraction] 28.0 % Low 36.0 - 46.0 % [facility] Hemoglobin (Bld) [Mass/Vol] 7.8 g/dL Low 12.0 - 16.0 g/dL [facility] Interpretation and review of laboratory results Abnormal [facility] MCH (RBC) [Entitic mass] 20.6 pg Low 26.0 - 34.0 pg [facility] MCHC (RBC) [Mass/Vol] 27.9 g/dL Low 31.0 - 37.0 g/dL [facility] MCV (RBC) [Entitic vol] 74.1 fL Low 80.0 - 100.0 fL [facility] Nucleated RBC (Bld) [#/Vol] 0.02 10*3/uL High [facility] Nucleated RBC/100 WBC (Bld) [Ratio] 0.2 % [facility] Platelet mean volume (Bld) [Entitic vol] 8.8 fL Low 9.4 - 12.4 fL [facility] Platelets (Bld) [#/Vol] 409 10*3/uL High [facility] RBC (Bld) [#/Vol] 3.78 10*6/uL Low [facility] WBC (Bld) [#/Vol] 10.20 10*3/uL [facility] COVID-19/INFLUENZA A,B MOLEC [facility] 11-20-2022 SARS-CoV-2 (COVID-19) Ab IA Ql SARS-COV-2 (RIP): Not Detected INFLUENZA A (RIP): Not Detected INFLUENZA B (RIP): Not Detected Normal Not Detected [facility] Comment on above: Order Comment: This test was performed under the FDA's Emergency Use Authorization (EUA). Testing was performed using the Kathi Osiel SARS-CoV-2 RT-PCR AND Influenza A/B Nucleic Acid Test on the Osiel Rip System. This test has not been approved for use in asymptomatic patients and its performance in this patient population has not been evaluated. Negative results do not rule out the presence of SARS-CoV-2, influenza A, and/or influenza B. Fact sheets for the EUA can be found at the following links: For Healthcare Providers: https://www.fda.gov/media/414877/download For Patients: https://www.fda.gov/media/566799/download Performed By: #### L [id number] #### [facility] [address] [facility], [place] [address] Paulie Roberts M.D. [id number] CT ABDOMEN PELVIS WITH IV CO NTRAST ONLYon 11-20-2022 CT ABDOMEN PELVIS WITH IV CONTRAST ONLY EXAMINATION: CT ABDOMEN PELVIS WITH IV CONTRAST ONLY HISTORY: ORDERING SYSTEM PROVIDED HISTORY: GI bleed, TECHNOLOGIST PROVIDED HISTORY: Illness/Other Reason for exam: dizziness and shortness of breath that started about 2 weeks ago Encounter Type: Initial Additional signs and symptoms: ORDERING SYSTEM PROVIDED DIAGNOSIS CODES: COMPARISON: None TECHNIQUE: CT examination of the abdomen and pelvis following the administration of intravenous contrast. Coronal and sagittal reformations were performed. Dose reduction techniques were achieved by using automated exposure control and/or adjustment of mA and/or kV according to patient size and/or use of iterative reconstruction technique. CONTRAST: IOPAMIDOL 370 MG IODINE/ML (76 %) INTRAVENOUS SOLUTION - 75 mL, FINDINGS: LOWER CHEST: Normal. ABDOMEN: Liver: Normal. Bile ducts: Normal caliber. Gallbladder: No calcified gallstones. Normal caliber wall. Pancreas: Normal. Spleen: Normal. Adrenals: Indeterminate low-density right adrenal nodule measures 1.6 x 1.2 cm with 40 Hounsfield units. Normal left adrenal gland. Kidneys: Symmetric enhancement of the kidneys without hydronephrosis. PELVIS: Reproductive organs: IUD centered within the fundal endometrial cavity. Left ovarian cyst measures 3.2 x 2.4 cm. Ureters: Normal. Bladder: Normal. OTHER ABDOMEN AND PELVIS: Bowel: Prior appendectomy. Mild diffuse colonic stool burden. No bowel obstruction. Peritoneum: No free intraperitoneal air. No ascites or fluid collection. Vessels: Normal. Lymph nodes: No enlarged lymph nodes. Abdominal wall: Normal. Osseous structures: No destructive lesions. IMPRESSION: Evaluation is somewhat degraded by motion. Particularly in the upper abdomen. No acute findings to account for patient's symptoms. Mild diffuse colonic stool burden without evidence of bowel obstruction. Grossly, no bowel mass or inflammatory changes. Recommend colonoscopy/endoscopy if concern for GI bleed. No obstructive uropathy. Left ovarian cyst, 3.[address] Indeterminate right adrenal nodule measuring up to 1.6 cm. Recommend nonemergent enhanced CT with adrenal mass protocol. Prior appendectomy. ST/hb Workstation ID: [id number] Dictated by: ALIZA HENNING on ThuNovember 20, 2022 12:56:31 PM EDT Transcribed by: ABHI RILEY on ThuNovember 20, 2022 1:11:27 PM EDT Finalized by: ALIZA HENNING on ThuNovember 20, 2022 8:43:09 PM EDT Normal [facility] Comment on above: Order Comment: Injur y/Trauma or Illness?:Illness/Other How long have you had these symptoms (acute/chronic)?:Acute Reason for exam?:dizziness and shortness of breath that started about 2 weeks ago Type of Exam?:Initial Additional signs and symptoms?: CT Abdomen Pelvis With IV Co ntrast Onlyon 11-20-2022 EXAMINATION: CT ABDOMEN PELVIS WITH IV CONTRAST ONLY HISTORY: ORDERING SYSTEM PROVIDED HISTORY: GI bleed, TECHNOLOGIST PROVIDED HISTORY: Illness/Other Reason for exam: dizziness and shortness of breath that started about 2 weeks ago Encounter Type: Initial Additional signs and symptoms: ORDERING SYSTEM PROVIDED DIAGNOSIS CODES: COMPARISON: None TECHNIQUE: CT examination of the abdomen and pelvis following the administration of intravenous contrast. Coronal and sagittal reformations were performed. Dose reduction techniques were achieved by using automated exposure control and/or adjustment of mA and/or kV according to patient size and/or use of iterative reconstruction technique. CONTRAST: IOPAMIDOL 370 MG IODINE/ML (76 %) INTRAVENOUS SOLUTION - 75 mL, FINDINGS: LOWER CHEST: Normal. ABDOMEN: Liver: Normal. Bile ducts: Normal caliber. Gallbladder: No calcified gallstones. Normal caliber wall. Pancreas: Normal. Spleen: Normal. Adrenals: Indeterminate low-density right adrenal nodule measures 1.6 x 1.2 cm with 40 Hounsfield units. Normal left adrenal gland. Kidneys: Symmetric enhancement of the kidneys without hydronephrosis. PELVIS: Reproductive organs: IUD centered within the fundal endometrial cavity. Left ovarian cyst measures 3.2 x 2.4 cm. Ureters: Normal. Bladder: Normal. OTHER ABDOMEN AND PELVIS: Bowel: Prior appendectomy. Mild diffuse colonic stool burden. No bowel obstruction. Peritoneum: No free intraperitoneal air. No ascites or fluid collection. Vessels: Normal. Lymph nodes: No enlarged lymph nodes. Abdominal wall: Normal. Osseous structures: No destructive lesions. GE RIS Aliza Henning, DO - 11/20/2022 EXAMINATION: CT ABDOMEN PELVIS WITH IV CONTRAST ONLY HISTORY: ORDERING SYSTEM PROVIDED HISTORY: GI bleed, TECHNOLOGIST PROVIDED HISTORY: Illness/Other Reason for exam: dizziness and shortness of breath that started about 2 weeks ago Encounter Type: Initial Additional signs and symptoms: ORDERING SYSTEM PROVIDED DIAGNOSIS CODES: COMPARISON: None TECHNIQUE: CT examination of the abdomen and pelvis following the administration of intravenous contrast. Coronal and sagittal reformations were performed. Dose reduction techniques were achieved by using automated exposure control and/or adjustment of mA and/or kV according to patient size and/or use of iterative reconstruction technique. CONTRAST: IOPAMIDOL 370 MG IODINE/ML (76 %) INTRAVENOUS SOLUTION - 75 mL, FINDINGS: LOWER CHEST: Normal. ABDOMEN: Liver: Normal. Bile ducts: Normal caliber. Gallbladder: No calcified gallstones. Normal caliber wall. Pancreas: Normal. Spleen: Normal. Adrenals: Indeterminate low-density right adrenal nodule measures 1.6 x 1.2 cm with 40 Hounsfield units. Normal left adrenal gland. Kidneys: Symmetric enhancement of the kidneys without hydronephrosis. PELVIS: Reproductive organs: IUD centered within the fundal endometrial cavity. Left ovarian cyst measures 3.2 x 2.4 cm. Ureters: Normal. Bladder: Normal. OTHER ABDOMEN AND PELVIS: Bowel: Prior appendectomy. Mild diffuse colonic stool burden. No bowel obstruction. Peritoneum: No free intraperitoneal air. No ascites or fluid collection. Vessels: Normal. Lymph nodes: No enlarged lymph nodes. Abdominal wall: Normal. Osseous structures: No destructive lesions. IMPRESSION: Evaluation is somewhat degraded by motion. Particularly in the upper abdomen. No acute findings to account for patient's symptoms. Mild diffuse colonic stool burden without evidence of bowel obstruction. Grossly, no bowel mass or inflammatory changes. Recommend colonoscopy/endoscopy if concern for GI bleed. No obstructive uropathy. Left ovarian cyst, 3.[address] Indeterminate right adrenal nodule measuring up to 1.6 cm. Recommend nonemergent enhanced CT with adrenal mass protocol. Prior appendectomy. ST/hb Workstation ID: [id number] [facility] Radiology Study observation (narrative) [facility] CT Abdomen Pelvis With IV Co ntrast OnlyOrdered By: Aliza Henning on 11-20-2022 [facility] Work Phone: D-Dimer, Quantitativeon - Fibrin D-dimer FEU (PPP) [Mass/Vol] 0.36 [facility] Interpretation and review of laboratory results Normal [facility] A D-dimer concentration of <0.5 micrograms per milliliter FEU is considered a low probability for pulmonary embolus (PE) and deep venous thrombosis (DVT). Results of this test should always be interpreted in conjunction with the patient's medical history,clinical presentation, and other findings. Clinical diagnosis should not be based on the results of the D-dimer alone. [facility] EKGon 11-20-2022 [facility] EKG 12-leadon 11-20-2022 Atrial Rate 111 BPM [facility] P [place] 28 degrees [facility] P-R Interval 124 ms [facility] Q-T Interval 330 ms [facility] QRS Duration 92 ms [facility] QTC Calculation (Bezet) 448 ms [facility] R [place] 46 degrees [facility] T [place] 21 degrees [facility] Ventricular Rate 111 BPM [facility] Sinus tachycardia Otherwise normal ECG ECG Cart Interpretation see physician note for interpretation. Confirmed by Pao Tran ([id number]) on 11/20/2022 1:53:07 PM MUSE [facility] Ethanol [Mass/Vol]on 023 Interpretation and review of laboratory results Normal [facility] Free T3 [Mass/Vol]on 023 Interpretation and review of laboratory results Abnormal [facility] Free T4 [Mass/Vol]on 023 Interpretation and review of laboratory results Normal [facility] HCG (QUANTITATIVE)on HCG Qn [facility] HCG Qnon 11-20-2022 Beta HCG ( test) Ql (U) Males and non females: <5 mIU/mL Females during : 3-4 weeks 9-130 mIU/mL 4-5 weeks 75-2600 mIU/mL 5-6 weeks 850-20,800 mIU/mL 6-7 weeks 4000-100,200 mIU/mL 7-12 weeks 11,500-289,000 mIU/mL 12-16 weeks 18,300-137,000 mIU/mL 16-29 weeks 1,400-53,000 mIU/mL 29-41 weeks 940-60,000 mIU/mL [facility] HIV Antibody (HIV1/HIV2)on 0 11-20-2022 HIV 1+2 Ab+HIV1 p24 Ag IA Ql Negative Negative [facility] Interpretation and review of laboratory results Normal [facility] This assay screens for the presence of HIV-1, HIV-2 antibodies and for the presence of HIV-1 antigen. Test performed using Kathi OSIEL immunoassay system [facility] Hepatic function 2000 panelo n 11-20-2022 Albumin [Mass/Vol] 3.2 g/dL 3.2 - 5.2 g/dL [facility] ALP [Catalytic activity/Vol] 82 U/L 40 - 140 U/L [facility] ALT [Catalytic activity/Vol] 23 U/L 14 - 65 U/L [facility] AST [Catalytic activity/Vol] 14 U/L 0 - 45 U/L [facility] Bilirubin [Mass/Vol] 0.3 mg/dL 0.0 - 1 .3 mg/dL [facility] Bilirubin.conjugated [Mass/Vol] mg/dL 0.0 - 0.4 mg/dL [facility] Protein [Mass/Vol] 7.0 g/dL 6.0 - 8.0 g/dL [facility] Hepatitis B Core Antibody, T otalon 11-20-2022 HBV core Ab Ql (S) Positive Abnormal Negative [facility] Interpretation and review of laboratory results Abnormal [facility] Hepatitis B Surface Antibody on 11-20-2022 HBV surface Ab Ql (S) Positive Abnormal Negative [facility] Hepatitis B Surface Antigeno n 11-20-2022 HBV surface Ag Ql (S) Negative Negative [facility] Hepatitis Be Antigenon 11-20 HBV e Ag IA Ql Negative Negative [facility] Hepatitis C Antibodyon 11-20 HCV Ab Ql (S) Positive Abnormal Negative [facility] Comment on above: A positive antibody test requires additional follow-up testing, Hepatitis C Virus Quantitation, to determine if a person is currently infected with Hepatitis C. Influenza virus A and B RNA and SARS-CoV-2 (COVID-19) N gene panel SIRIA+probe (Resp)Ordered By: Beth Padgett on 11-20-2022 FLUAV RNA SIRIA+probe Ql (Unsp spec) Not detected Not Detected [facility] FLUBV RNA SIRIA+probe Ql (Unsp spec) Not detected Not Detected [facility] Interpretation and review of laboratory results Normal [facility] SARS-CoV-2 (COVID-19) RNA SIRIA+probe Ql (Resp) Not detected Not Detected [facility] This test was performed under the FDA's Emergency Use Authorization (EUA). Testing was performed using the Kathi Osiel SARS-CoV-2 RT-PCR & Influenza A/B Nucleic Acid Test on the Osiel Rip System. This test has not been approved for use in asymptomatic patients and its performance in this patient population has not been evaluated. Negative results do not rule out the presence of SARS-CoV-2, influenza A, and/or influenza B. Fact sheets for the EUA can be found at the following links: For Healthcare Providers: https://www.fda.gov/m edia/501313/download For Patients: https://www.fda.gov/m edia/874834/download [facility] Iron Study with Ferritinon 0 11-20-2022 Ferritin [Mass/Vol] 3 ng/mL Low 13 - 150 ng/mL [facility] Interpretation and review of laboratory results Abnormal [facility] Iron [Mass/Vol] 12 ug/dL Low [facility] Iron binding capacity [Mass/Vol] 451 High [facility] Iron saturation [Mass fraction] 3 % Low 20 - 50 % [facility] No Panel Informationon 11-20 Test performed using Kathi OSIEL immunoassay system [facility] Interpretation and review of laboratory results Normal [facility] Interpretation and review of laboratory results Abnormal [facility] Test performed using Kathi OSIEL immunoassay system [facility] Interpretation and review of laboratory results Abnormal [facility] Interpretation and review of laboratory results Normal [facility] Prolactinon 11-20-2022 Prolactin [Mass/Vol] 22.7 ng/mL 1.4 - 2 4.2 ng/mL [facility] Prolactin [Mass/Vol]on 11-20 Interpretation and review of laboratory results Normal [facility] Reticulocytes panel (Bld)on 11-20-2022 Hemoglobin Auto (Reticulocytes) [Entitic mass] 14.7 PG Low 27.7 - 38.2 PG [facility] Comment on above: The cut-off for RET- He established in our institution is 27.7-38.2 pg/RBC. A value below this range is highly suggestive of iron deficiency. At values above 38.2 pg/RBC, patients are unlikely to respond to additional iron therapy. Immature reticulocytes (Bld) [#/Vol] 30.8 % High 2.3 - 15.9 % [facility] Interpretation and review of laboratory results Abnormal [facility] Reticulocytes (Bld) [#/Vol] 0.052 10*3/uL [facility] Reticulocytes/100 RBC (Bld) 1.8 % [facility] T3, Freeon 11-20-2022 Free T3 [Mass/Vol] 5.4 pg/mL High 2.0 - 4.4 pg/mL [facility] T4, Freeon 11-20-2022 Free T4 [Mass/Vol] 1.3 ng/dL 0.7 - 1.7 ng/dL [facility] TSH DL <= 0.005 mIU/L Qnon 0 11-20-2022 TSH Qn Low [facility] Troponinon 11-20-2022 Troponin I 12 ng/L NINF - 59 ng/L [facility] Troponin I Interpretation Normal [facility] UrinalysisOrdered By: Lilli coleman on 11-20-2022 Bacteria Auto Ql (U) Rare Abnormal None Seen /hpf [facility] Bilirubin Ql (U) Negative Negative [facility] th Clarity Refractometry automated (U) Hazy Abnormal Clear [facility] Color (U) Yellow Colorless, Yellow [facility] Epithelial cells.squamous Auto (Urine sed) [#/Area] 10 High [facility] Glucose Auto test strip (U) [Mass/Vol] Negative Negative mg/dL [facility] Hemoglobin Auto test strip Ql (U) Negative Negative [facility] Interpretation and review of laboratory results Abnormal [facility] Ketones (U) [Mass/Vol] Negative Negative mg/dL [facility] Leukocyte esterase Auto test strip Ql (U) Small Abnormal Negative [facility] Mucus Auto (Urine sed) [#/Area] Rare None Seen, Rare /lpf [facility] Nitrite Auto test strip Ql (U) Negative Negative [facility] pH (U) 7.0 [pH] 5.0 - 7.0 [facility] Protein (U) [Mass/Vol] Negative Negative mg/dL [facility] RBC Auto (Urine sed) [#/Area] 1 [facility] Specific gravity (U) [Rel density] 1.037 High 1.005 - 1.025 [facility] Urobilinogen (U) [Mass/Vol] mg/dL NINF - 2.0 mg/dL [facility] WBC Auto (Urine sed) [#/Area] 1 [facility] Microscopic examination is performed on all urinalysis samples and only positive findings are reported. The test for blood on the chemical analytic portion of urinalysis may also be positive due to hemoglobinuria and myoglobinuria and if red blood cells are present they are quantified by microscopic examination. [facility] [facility] Urine Drug Screenon 11-21-19 23 Amphetamines Ql (U) Positive Abnormal None Detected [facility] Comment on above: Urine Amphetamine Cu toff: < 1000 ng/mL = None Detected Barbiturates Screen Ql (U) Not detected None Detected [facility] Comment on above: Urine Barbiturates C utoff: < 200 ng/mL = None Detected Benzodiazepines Ql (U) Not detected None Detected [facility] Comment on above: Urine Benzodiazepine Cutoff: < 200 ng/mL = None Detected Buprenorphine Ql (U) Not detected None Detected [facility] Comment on above: Urine Buprenorphine Cutoff: < 5 ng/mL = None Detected Cannabinoids Screen Ql (U) Positive Abnormal None Detected [facility] Comment on above: Urine Cannabinoids C utoff: < 50 ng/mL = None Detected Cocaine Ql (U) Not detected None Detected [facility] Comment on above: Urine Cocaine Cutoff : < 300 ng/mL = None Detected fentaNYL+Norfentanyl Screen Ql (U) Positive Abnormal None Detected [facility] Comment on above: Urine Fentanyl Cutof f: < 1 ng/mL = None Detected Interpretation and review of laboratory results Abnormal [facility] Methadone Screen Ql (U) Not detected None Detected [facility] Comment on above: Urine Methadone Cuto ff: < 300 ng/mL = None Detected Opiates Screen Ql (U) Not detected None Detected [facility] Comment on above: Urine Opiates Cutoff : < 300 ng/mL = None Detected oxyCODONE Ql (U) Not detected None Detected [facility] Comment on above: Urine Oxycodone Cuto ff: < 100 ng/mL = None Detected Specimen will be kep t for 1 week, if the sample is adequate. Confirmation testing can be initiated by calling the lab within 1 week. Screen results should be used for treatment purposes only. [facility] XR CHEST PA/APon 11-20-2022 XR CHEST PA/AP EXAMINATION: XR CHEST PA/AP 11/20/2022 11:28 am HISTORY: ORDERING SYSTEM PROVIDED HISTORY: dizziness, sob, TECHNOLOGIST PROVIDED HISTORY: Illness/Other Reason for exam: dizziness, sob Cancer History: Surgery, RadiationHistory: Encounter Type: Initial Additional signs and symptoms: ORDERING SYSTEM PROVIDED DIAGNOSIS CODES: COMPARISON: None FINDINGS: Heart and vascularity are unremarkable. Lungs are free of focal infiltrates. EKG leads overlie the chest. IMPRESSION: No acute heart or lung disease identified. Workstation ID: [id number] Dictated by: RAJEEV NOLASCO on ThuNovember 20, 2022 11:39:10 AM EDT Transcribed by: RAJEEV NOLASCO on Swapna November 20, 2022 11:39:10 AM EDT Finalized by: RAJEEV NOLASCO on ThuNovember 20, 2022 11:39:10 AM EDT Normal [facility] Comment on above: Order Comment: Injur y/Trauma or Illness?:Illness/Other How long have you had these symptoms (acute/chronic)?:Acute Reason for exam?:dizziness, sob History of cancer?: Surgeries, chemotherapy, or radiation?: Type of Exam?:Initial Additional signs and symptoms?: XR Chest 1 Viewon 11-20-2022 No acute heart or lung disease identified. Workstation ID: [id number] knowNormal EXAMINATION: XR CHEST PA/AP 11/20/2022 11:28 am HISTORY: ORDERING SYSTEM PROVIDED HISTORY: dizziness, sob, TECHNOLOGIST PROVIDED HISTORY: Illness/Other Reason for exam: dizziness, sob Cancer History: Surgery, RadiationHistory: Encounter Type: Initial Additional signs and symptoms: ORDERING SYSTEM PROVIDED DIAGNOSIS CODES: COMPARISON: None FINDINGS: Heart and vascularity are unremarkable. Lungs are free of focal infiltrates. EKG leads overlie the chest. GE RIS Rajeev Nolasco MD - 11/20/2022 EXAMINATION: XR CHEST PA/AP 11/20/2022 11:28 am HISTORY: ORDERING SYSTEM PROVIDED HISTORY: dizziness, sob, TECHNOLOGIST PROVIDED HISTORY: Illness/Other Reason for exam: dizziness, sob Cancer History: Surgery, RadiationHistory: Encounter Type: Initial Additional signs and symptoms: ORDERING SYSTEM PROVIDED DIAGNOSIS CODES: COMPARISON: None FINDINGS: Heart and vascularity are unremarkable. Lungs are free of focal infiltrates. EKG leads overlie the chest. IMPRESSION: No acute heart or lung disease identified. Workstation ID: [id number] [facility] Radiology Study observation (narrative) [facility] XR Chest 1 ViewOrdered By: Lulu Nolasco on 11-20-2022 [facility] Work Phone: Apply dressingon 10-28-2022 Dressing applied to patient's blister on left ankle. Patient tolerated well. [facility] Apply dressingOrdered By: Sheela Garner on 10-28-2022 [facility] Provider Note - ED v2on 04-20 Provider Note - ED v2 Provider Note - ED v2: Chart Review: ED NOTES ED NOTES: HPI: 29 year old female comes to the ED with c/o an abscess to her R lower tooth that. has been bothering her for about 2 days. Patient states she's been taking Tylenol for the pain, but only had minimal relief. Denies having a dentist. ROS: All systems are negative other than as noted in HPI. Physical Exam I have reviewed the triage vital signs. Const: Well nourished, well developed, appears stated age, no acute distress Eyes: PERRL, EOM intact, no conjunctival injection, vision grossly normal HENT: Neck supple without meningismus , Moist mucous membranes, no pharyngeal swelling or exudate, Patient has scattered dental caries. CV: Regular rate and rhythm, Warm, well-perfused extremities. Chest non tender RESP: Lungs clear bilaterally, Unlabored respiratory effort GI: soft, non-tender, non-distended, no masses : MSK: No gross deformities appreciated Skin: Warm, dry. 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 Sensation and motor function of extremities grossly intact. Psych: Appropriate mood and affect.. HISTORY OF PRESENTING ILLNESS MYLES is a 29 year old Female and was seen by me at 12-May-2019 22:52. Triage Information: Most recent Vital Sign Value Date Temp (F): 98.9 05-12-2019 22:56 Temp (C): 37.2 05-12-2019 22:56 Heart Rate (beats/min): 120 05-12-2019 22:56 Respirations (breaths/min): 18 05-12-2019 22:56 BP Systolic (mm Hg): 124 05-12-2019 22:56 BP Diastolic (mm Hg): 87 05-12-2019 22:56 PAST MEDICAL HISTORY ATTESTATION: I have reviewed and confirmed nurse's/medic's notes for patient's medications, allergies, medical history, and surgical history ALLERGIES/INTOLERANCE S: No Known Allergies HEALTH HISTORY: No documented data. OUTPATIENT MEDICATIONS: Home Medications Review Status for Reconciliation: N/A Med Status: N/A No documented data. SIGNIFICANT EVENTS: No documented data. BURR PICKER: Is : maybe Is : no Order Test: no MEDICAL DECISION MAKING/ED COURSE MDM/ED COURSE: The medications you have been prescribed will help with the symptoms however it is extremely important that you follow-up closely with dentistry for continued evaluation and monitoring. Please feel free to return immediately to the nearest ER for any new or worsening concerns. CLINICAL IMPRESSION Diagnosis/Annotation: ED Dx Name:Dental caries Code:K02.9 Dispostion: discharged Type: home ATTESTATION Scribe Name: serg Ro Scribing on Behalf of: Reginaldo Lund ESCORT PATIENTS ATTENDING SCRIBE ATTESTATION STATEMENT Reginaldo Arguello APRN-CNP, attests all medical record entries made by the scribe were under my direction and personally dictated by me. I have reviewed the chart and agree that the record accurately reflects my performance of the history, physical, and assessment plan. I have also personally directed, reviewed, and agree with disposition instructions. CRITICAL CARE TIME Is this a critically ill patient: no Electronic Signatures: Reginaldo Lund I (SCREEN MAKING SUPERVISOR-TRAINING MGR) (Signed 12-May-2019 23:13) Authored: Provider Note - ED v2 Serg Ro (Scribe) (Entered 12-May-2019 22:56) Entered: Provider Note - ED v2 Last Updated: 12-May-2019 23:13 by Reginaldo Lund I (SCREEN MAKING SUPERVISOR-TRAINING MGR) [facility] Risk Screen - Adult Emergenc yon 05-13-2019 Risk Screen - Adult Emergency Preferred Language: Preferred Language: Preferred Language for Discussing Health Care (patient/designee)Kate yap Advanced Directives: Advance Directive/DNRno Family Violence Adult: Abuse Screen: Are you or have you been threatened or abused physically, emotionally, or sexually by anyoneno Learning Assessment (Patient): Learning Assessment (Patient): Patient is Able to be Assessed for Learningyes Factors Influencing Readiness to Learnnone Factors that Impact Ability to Learnnone Devices/Methods Used to Communicatenone Learning Preferencesverbal instruction; written material Cultural Considerationsnone Developmental Considerationsnone Buddhist Considerationsnone Other Learnersnone Learning Assessment (Other Learner): Learning Assessment (Other Learner): Other learner availableno Pressure Injury/TB/Substance: Pressure Injury: Pressure Injury Present on Admissionno Do you have a coughno Admission Risk Screen: Significant IndicatorsComplete CAGE: CAGE: Is this an injured patient at a Trauma Center [place]/Ruth guerrero/[place]): no Electronic Signatures: Kriss Peoples (SUPV) (Signed 12-May-2019 23:05) Authored: Preferred Language, Advanced Directives, Family Violence Adult, Learning Assessment (Patient), Learning Assessment (Other Learner), Pressure Injury/TB/Substance, CAGE Last Updated: 12-May-2019 23:05 by Kriss Peoples (SUPV) [facility] Triage - EDon 05-13-2019 Triage - ED Quick Triage: Are You no Have You Given In The Last 6 Weeksno Are You Currently Breastfeedingno Chart Review: CHIEF COMPLAINT MYLES VENEGAS is a Female patient with a chief complaint of dental pain/injury. Other Complaints: States toothache for 2 days Triage Date/Time: 12-May-2019 22:56 Pain Rating (0-10): 7 = Severe Pain location: dental Vital Signs: Temperature: 98.9F ( 37.2C) taken oral Blood Pressure: 124/87 Mean: Heart Rate: 120 Respiratory Rate: 18 on room air, no respiratory support. Height: 5 feet 6.00 inches. 167.6 CM Weight: 200.0 pounds. Calculated 90.7 kg. (stated) Calculated BMI (kg/m2): 32.289 Calculated BSA (m2) 2.05 Cough lasting greater than 3 weeks: no Patient immunocompromised related to: N/A Travel outside of [place]: no Allergies: yes Last menstrual period: 12-Apr-2019 BURR PICKER History: control Patient has homicidal thoughts: no SHAQUILLE: 4 Symptoms Are POSITIVE For: facial pain and toothache. Risk Screens Suicide Risk Screen In the Past Month: Have you wished you were or wished you could go to sleep and not wake up no In the Past Month: Have you had any actual thoughts of killing yourself no In Your Lifetime: Have you ever done anything, started to do anything, or prepared to do anything to end your life no Lin Fall Scale Screening Has the patient fallen before (or is the patient in the ED as a result of a fall) has not had a fall Does the patient have an impaired gait does not have impaired gait Is the patient cognitively impaired not cognitively impaired PAIN Pain Scale Used: ELOY Pain Rating (0-10): 7 = Severe ARRIVAL INFORMATION Means of Arrival: Ambulatory Mode of Arrival: private vehicle Arrival From: home Accompanied By: self Language: Spoken Language Preferred: Kazakh Reading Language Preferred: Kazakh MDRO: History of MDRO: no Present on Arrival: Device Present on Arrival to ED: no Pressure Ulcer Present on Arrival to ED: no PRIMARY ASSESSMENT MYLES VENEGAS'skip primary assessment is Within Normal Limits. The airway is open and patent. Breathing spontaneous and unlabored with clear breath sounds bilaterally. Circulation is normal with good peripheral pulses. Skin is warm and dry and color is normal for race. PAST MEDICAL HISTORY Immunization History: Last Known Tetanus Immunization: Unknown TRAVEL HISTORY Travel Exposure History: NO travel to International locations in the past 30 days Past Medical History: Past Medical History Reviewedyes Electronic Signatures: Kriss Peoples (SUPV) (Signed 12-May-2019 23:01) Authored: Triage, Past Medical History Last Updated: 12-May-2019 23:01 by Kriss Peoples (SUPV) Normal [facility] Hepatic Function Panelon Albumin mass conc 3.9 g/dL Normal 3.2-5.2 [facility] Comment on above: Performed By: #### H EPF ####Unless otherwise noted, all testing performed by [address] [phone]: [id number] Director: Paulie Roberts M.D. ALP enzyme act/vol 69 U/L Normal 40-140 [facility] Comment on above: Performed By: #### H EPF ####Unless otherwise noted, all testing performed by [address] [id number]: [id number] Director: Paulie Roberts M.D. ALT enzyme act/vol 61 U/L Normal 14-65 [facility] Comment on above: Result Comment: This test result might be falsely depressed or falsely elevated onsamples drawn from patients taking Sulfasalazine and Sulfapyridine.Venipuncture should occur prior to taking either of these drugs. Performed By: #### H EPF ####Unless otherwise noted, all testing performed by [address] [phone]: [id number] Director: Paulie Roberts M.D. AST enzyme act/vol 26 U/L Normal 0-45 [facility] Comment on above: Result Comment: This test result might be falsely depressed or falsely elevated onsamples drawn from patients taking Sulfasalazine and Sulfapyridine.Venipuncture should occur prior to taking either of these drugs. Performed By: #### H EPF ####Unless otherwise noted, all testing performed by [address] [phone]: [id number] Director: Paulie Roberts M.D. Bilirubin mass conc 0.4 mg/dL Normal 0.3-1.2 [facility] Comment on above: Performed By: #### H EPF ####Unless otherwise noted, all testing performed by [address] [phone]: [id number] Director: Paulie Roberts M.D. Bilirubin.direct mass conc mg/dL Normal 0.0-0.4 [facility] Comment on above: Performed By: #### H EPF ####Unless otherwise noted, all testing performed by [address] [phone]: [id number] Director: Paulie Roberts M.D. Protein mass conc 8.2 g/dL High 6.0-8.0 [facility] Comment on above: Performed By: #### H EPF ####Unless otherwise noted, all testing performed by [address] [phone]: [id number] Director: Paulie Roberts M.D. Albumin mass conc 3.9 g/dL Invalid Interpretation Code 3.2 - 5.2 g/dL [facility] ALP enzyme act/vol 69 U/L Invalid Interpretation Code 40 - 140 U/L [facility] ALT enzyme act/vol 61 U/L Invalid Interpretation Code 14 - 65 U/L [facility] Comment on above: This test result lenin ht be falsely depressed or falsely elevated on samples drawn from patients taking Sulfasalazine and Sulfapyridine. Venipuncture should occur prior to taking either of these drugs. AST enzyme act/vol 26 U/L Invalid Interpretation Code 0 - 45 U/L [facility] Comment on above: This test result lenin ht be falsely depressed or falsely elevated on samples drawn from patients taking Sulfasalazine and Sulfapyridine. Venipuncture should occur prior to taking either of these drugs. Bilirubin mass conc 0.4 mg/dL Invalid Interpretation Code 0.3 - 1.2 mg/dL [facility] Bilirubin.direct mass conc mg/dL Invalid Interpretation Code 0 - 0.4 mg/dL [facility] Interpretation and review of laboratory results Abnormal Invalid Interpretation Code [facility] Protein mass conc 8.2 g/dL High 6 - 8 g/dL [facility] Chlamydia/GC/Trich Amp RNA U carolynn 09-24-2017 Chlamydia trach, Amp RNA Ur Negative Normal Negative [facility] Comment on above: Performed By: #### C HLGCTRU ####Unless otherwise noted, all testing performed by [address] [phone]: [id number] Director: Paulie Roberts M.D. Neisseria Gonorr, Amp.RNA Ur Negative Normal Negative [facility] Comment on above: Result Comment: [place] [address] Performed By: #### C HLGCTRU ####Unless otherwise noted, all testing performed by [address]CLIA: [id number] Director: Paulie Roberts M.D. Trichomonas vag. Amp RNA Ur Negative Normal Negative [facility] Comment on above: Result Comment: [place] [address] Performed By: #### C HLGCTRU ####Unless otherwise noted, all testing performed by [address]CLIA: [id number] Director: Paulie Roberts M.D. Urinalysis, Routineon 2017 Bacteria LM.HPF #/area (Urine sed) Rare Normal NS;RARE [facility] Comment on above: Performed By: #### U A ####Unless otherwise noted, all testing performed by [address] [phone]: [id number] Director: Paulie Roberts M.D. Bilirubin,Urine Negative Normal NEG;NEGATIVE [facility] Comment on above: Performed By: #### U A ####Unless otherwise noted, all testing performed by [address] [phone]: [id number] Director: Paulie Roberts M.D. Blood,Urine Negative Normal NEG;NEGATIVE [facility] Comment on above: Performed By: #### U A ####Unless otherwise noted, all testing performed by [address] [phone]: [id number] Director: Paulie Roberts M.D. Calcium Oxalate Betty Rare Abnormal None Seen [facility] Comment on above: Performed By: #### U A ####Unless otherwise noted, all testing performed by [address] [phone]: [id number] Director: Paulie Roberts M.D. Character Clear Normal [facility] Comment on above: Performed By: #### U A ####Unless otherwise noted, all testing performed by [address] [phone]: [id number] Director: Paulie Roberts M.D. Color Nom (U) Yellow Normal [facility] Comment on above: Performed By: #### U A ####Unless otherwise noted, all testing performed by [address] [phone]: [id number] Director: Paulie Roberts M.D. Glucose Ql (U) Negative Normal NEG;NEGATIVE [facility] Comment on above: Performed By: #### U A ####Unless otherwise noted, all testing performed by [address] [phone]: [id number] Director: Paulie Roberts M.D. Ketone,Urine Negative Normal NEG;NEGATIVE [facility] Comment on above: Performed By: #### U A ####Unless otherwise noted, all testing performed by [address] [phone]: [id number] Director: Paulie Roberts M.D. Leuk.Esterase,Urine Negative Normal Negative [facility] Comment on above: Performed By: #### U A ####Unless otherwise noted, all testing performed by [address] [phone]: [id number] Director: Paulie Roberts M.D. Nitrite,Urine Negative Normal NEG;NEGATIVE [facility] Comment on above: Performed By: #### U A ####Unless otherwise noted, all testing performed by [address] [phone]: [id number] Director: Paulie Roberts M.D. pH Test strip (U) 6.0 [pH] Normal 4.5-8.0 [facility] Comment on above: Performed By: #### U A ####Unless otherwise noted, all testing performed by [address] [phone]: [id number] Director: Paulie Roberts M.D. Protein,Urine Negative Normal NEG;NEGATIVE [facility] Comment on above: Performed By: #### U A ####Unless otherwise noted, all testing performed by [address] [phone]: [id number] Director: Paulie Roberts M.D. RBC,Urine 1 /HPF Normal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 Objective BP 144/84 Pulse 120 Temp 36.9 ?C (98.4 ?F) (Tympanic) Resp 18 Wt 74.3 kg (163 lb 12.8 oz) LMP 04/15/2019 SpO2 99% BMI 26.84 kg/m? Physical Exam Vitals and nursing note reviewed. Constitutional: General: She is not in acute distress. Appearance: Normal appearance. She is not toxic-appearing. Musculoskeletal: Right hip: Tenderness and bony tenderness present. No deformity or crepitus. Decreased range of motion. Normal strength. Comments: Slightly decreased ROM right hip due to pain. Tenderness over right anterior hip and greater trochanter. Pain with external rotation and internal rotation of the hip, more with internal rotation. Normal sensation right lower extremity. Normal strength right lower extremity. Able to ambulate. Skin: General: Skin is warm and dry. Neurological: Mental Status: She is alert. { 1. Right hip pain (M25.551) 2. Osteoarthritis of right hip, unspecified osteoarthritis type (M16.11) - Chronic right hip pain with recent radiation to the right thigh; no associated back pain, numbness, or paresthesia. - Exam reveals pain with palpation of anterior and lateral hip, and with internal and external rotation. - X-ray reveals moderate to severe right hip osteoarthritis. - Start meloxicam; advised to avoid other NSAIDs while taking this medication. - Orthopedic consult placed. and Recording using Vistaar software for draft documentation of the visit was discussed with the patient/authorized business center representative; all questions welcomed and answered. Patient/authorized business center representative agreed to proceed Differential Diagnoses - Arthritis right hip is more likely for the following reason(s): suggested by HANDP and consistent with imaging Disposition The patient was discharged. Procedures [1] Social History Tobacco Use Smoking status: Every Day Current packs/day: 1.00 Average packs/day: 1 pack/day for 5.0 years (5.0 ttl pk-yrs) Types: Cigarettes Smokeless tobacco: Never Tobacco comments: occasionally Substance Use Topics Alcohol use: No Drug use: Not Currently Types: Crystal Meth, Opiates [facility] 03-11-2025 History of Present illness Narrative URGENT CARE JES Holliday Lourdes is a 35 year old female. Patient presents with: Right Hip Pain: X several years but worst the last 2 weeks HPI Right Hip Pain: - Chronic right hip pain x years, exacerbated by prolonged sitting in certain positions. - Describes hip as locking up with associated severe pain. - Recent radiation of pain to the right thigh, severe enough to wake her from sleep. - Denies back pain, numbness, or tingling in the leg. - Has not previously sought medical evaluation for the hip pain. - Has been taking ibuprofen for pain management. PAST MEDICAL HISTORY Diagnosis Date Acute appendicitis without mention of peritonitis ASCUS with positive high risk HPV cervical Essential hypertension, benign Obesity, unspecified PMH - PAST MEDICAL HISTORY OF VESICOURETHRAL REFLUX Subclinical hyperthyroidism 08/02/2015 Urinary tract infection, site not specified PAST SURGICAL HISTORY Procedure Laterality Date INSERTION OF IUD 04/14/2012 LAPAROSCOPIC APPENDECTOMY 10/16/07 ALLERGIES No Known Drug Allergies MEDICATIONS levonorgestrel (MIRENA) 20 mcg/24 hours (5 yrs) 52 mg IUD 1 Each by INTRAUTERINE route as directed. meloxicam (MOBIC) 15 mg tablet Take 1 tablet by mouth once daily. FAMILY HISTORY Problem Relation Age of Onset Diabetes Mother type 2 Hypertension Mother Cancer Maternal Grandmother Lung Heart Maternal Grandmother Pace Maker in place () Diabetes Maternal Grandmother Great Grandmother other (Lung Problems) Paternal Grandfather Diabetes Paternal Grandmother SOCIAL HISTORY[1] Review of Systems Musculoskeletal: (+) right hip pain, (+) right hip locking, (+) right thigh pain, (-) back pain Neurological: (-) lower extremity numbness, (-) lower extremity tingling Objective BP 144/84 Pulse 120 Temp 36.9 C (98.4 F) (Tympanic) Resp 18 Wt 74.3 kg (163 lb 12.8 oz) LMP 04/15/2019 SpO2 99% BMI 26.84 kg/m Physical Exam Vitals and nursing note reviewed. Constitutional: General: She is not in acute distress. Appearance: Normal appearance. She is not toxic-appearing. Musculoskeletal: Right hip: Tenderness and bony tenderness present. No deformity or crepitus. Decreased range of motion. Normal strength. Comments: Slightly decreased ROM right hip due to pain. Tenderness over right anterior hip and greater trochanter. Pain with external rotation and internal rotation of the hip, more with internal rotation. Normal sensation right lower extremity. Normal strength right lower extremity. Able to ambulate. Skin: General: Skin is warm and dry. Neurological: Mental Status: She is alert. { 1. Right hip pain (M25.551) 2. Osteoarthritis of right hip, unspecified osteoarthritis type (M16.11) - Chronic right hip pain with recent radiation to the right thigh; no associated back pain, numbness, or paresthesia. - Exam reveals pain with palpation of anterior and lateral hip, and with internal and external rotation. - X-ray reveals moderate to severe right hip osteoarthritis. - Start meloxicam; advised to avoid other NSAIDs while taking this medication. - Orthopedic consult placed. and Recording using Vistaar software for draft documentation of the visit was discussed with the patient/authorized business center representative; all questions welcomed and answered. Patient/authorized business center representative agreed to proceed Differential Diagnoses - Arthritis right hip is more likely for the following reason(s): suggested by H&P and consistent with imaging Disposition The patient was discharged. Procedures [1] Social History Tobacco Use Smoking status: Every Day Current packs/day: 1.00 Average packs/day: 1 pack/day for 5.0 years (5.0 ttl pk-yrs) Types: Cigarettes Smokeless tobacco: Never Tobacco comments: occasionally Substance Use Topics Alcohol use: No Drug use: Not Currently Types: Crystal Meth, Opiates documented in this encounter [facility] 07-16-2024 Note [facility] Medical Records Department [address] [place] [id number] Discharge Summary 07/16/24 0952 MR#: [id number] Acct: [id number] Name: MLYES VENEGAS Rep #: [id number] : 1990 34 From: Ladarius Ryan DO PCP: Care Physician,No Primary Status:DIS IN Location: [facility] GIP400-0 Providers Date of Admission: 07/14/24 Date of Discharge: 07/16/24 Primary Care Physician: No Primary Care Phys Reason For Visit: Severe ABLA with hemoglobin of 5g/dL present Diagnosis Discharge Diagnosis (1) Symptomatic anemia: Status: Acute Code(s): D64.9 - Anemia, unspecified Plan 1. Chronic iron deficiency anemia-I will transfuse the patient 1 more unit of packed red blood cells, she will receive Venofir tomorrow, CBC will be rechecked tomorrow #2 pyelonephritis-patient will continue on IV antibiotics #3 bilateral atelectasis-I do not feel the patient has pneumonia #4 noncompliance with medical regimen-complicates care, management, recovery, and prognosis #5 thyroid nodules-likely multinodular goiter, patient will need follow-up as an outpatient concerning this I do not feel patient has enteritis Total clinical time spent by myself addressing the patient's medical issues, reviewing all of her data, and collaborating with patient's care team: 35 minutes Medications at Discharge Home Medications chlorpheniramine-pseudoephedrine 2 mg-30 mg/5 mL oral liquid (LoHist - D) 10 ml PO Q6H allergies 07/14/24 ferrous sulfate 325 mg (65 mg iron) tablet (FeroSul) 325 mg PO BID supplement 07/14/24 cefdinir 300 mg capsule 300 mg PO BID #14 caps 07/16/24 Hospital Course Operations None Procedures Blood transfusion Summary of Care Provided Minutes Spent on Discharge: 32 Hospital Course: This 34-year-old white female was seen in the emergency room at [facility] with complaints of generalized weakness and fatigue as well as exertional dyspnea. Patient has a history of iron deficiency anemia and does not follow-up with a physician on a regular basis. Patient had been transfused approximately 18 months prior while hospitalized in [facility], according to the patient, the etiology of her anemia was not determined. Patient was supposed to be taking iron supplements but she admitted to not taking them. Workup in the emergency room included a CBC which showed a white blood cell count of 11.3 and hemoglobin of 5, patient's D-dimer was elevated at 2.16, chemistry profile was unremarkable. Chest CTA was obtained which indicated a bibasilar pneumonia, however this examiner did not feel the patient had pneumonia-patient had no symptoms of pneumonia. CT of the abdomen pelvis was obtained, there were findings suspicious for small bowel obstruction and infectious versus inflammatory enteritis as well as acute left pyelonephritis. This examiner did not feel the patient had enteritis and she had no symptoms of bowel obstruction however. Patient was admitted to PCU, she underwent blood transfusion and IV iron administration, she was placed on IV antibiotics for pyelonephritis. Patient improved during her hospitalization, she was urged to follow-up with a PCP after discharge. On 07/16/2024, patient was seen and examined: On examination she appeared older than her stated age, she does not appear to be in any distress. Vital signs as documented. Skin warm and dry and without overt rashes. Neck without JVD, thyroid appears normal, trachea is midline, neck is supple. Lungs clear, normal air movement was noted. Heart exam notable for regular rhythm, normal sounds and absence of murmurs, rubs or gallops. Abdomen unremarkable and without evidence of organomegaly, masses, or abdominal aortic enlargement, bowel sounds are present in all 4 quadrants, no abdominal tenderness was noted. Extremities nonedematous, no cyanosis was noted, no clubbing was noted. Neuro: Cranial nerves II through XII are grossly intact, no focal motor deficits were noted, sensation to light touch and pinprick is intact, motor exam 5/5 throughout. Psych: Patient is alert and oriented x3, she does not appear anxious or depressed, she does not appear agitated. Patient appears stable for discharge home on 07/16/2024. Weight / BMI Weight Weight: 67.5 kg Body Mass Index (BMI) 24.0 ABG / Lab / Microbiology Data 07/16/24 05:55 07/15/24 05:23 Laboratory: Laboratory Results - last 24 hr 07/14/24 17:52: Diff Path Review Reviewed 07/14/24 19:20: Crossmatch See Detail 07/14/24 19:20: Crossmatch See Detail 07/15/24 12:59: Hgb 7.6 L, Hct 26.7 L 07/16/24 05:55: WBC 10.7, RBC 4.24, Hgb 9.0 L, Hct 31.1 L, MCV 73.3 L D, MCH 21.2 L, MCHC 28.9 L, R DW Std Deviation 69.3 H, RDW Coeff of Nya 26.9 H, Plt Count 486 H, MPV 8.6, Immature Gran % (Auto) 1.500 H, Neut % (Auto) 70.9 H, Lymph % (Auto) 16.3 L, [place] % (Auto) 8.3 (more content not included)... [facility] 10-12-2023 Telephone encounter Note The patient requested this from me after having it initially prescribed last November. If you feel this is beneficial to her, this Rx must come from you please. Thank you. [facility] 10-12-2023 Miscellaneous Notes The patient requested this from me after having it initially prescribed last November. If you feel this is beneficial to her, this Rx must come from you please. Thank you. documented in this encounter [facility] 05-12-2023 Instructions Kiana Keene CNP - 05/12/2023 6:21 PM EDT Go directly to the [facility] ER [address] documented in this encounter [facility] 05-12-2023 History of Present illness Narrative Images from the original note were not included. Patient Name: [facility] Urgent Care Location: [facility] Venegas [address] [place], [place] [id number] Date Of : Date Of Visit: 1990 05/12/2023 MRN# Provider: [id number] Kiana Keene CNP Chief Complaint Patient presents with Cough Cough, head/chest congestions, fatigue x 3 to 4 days. Work note needed. Assessment & Plan 1. Tachycardia ECG 12 Lead Ambulatory referral to Emergency Medicine 2. Fatigue, unspecified type Ambulatory referral to Emergency Medicine 3. Acute cough 4. Cigarette smoker No follow-ups on file. Medical Decision Making Client is ill appearing, diaphoretic. No appearance of respiratory distress, labored breathing or conversational dyspnea. Reports cough, fever, fatigue, SOB and back pain. No chest pain and does not feel heart racing or palpitations. Smoker. History of hyperthyroidism and anemia with acute bleed. Reports missing work. She states she does not want transferred to the ER. Reports hospitalization for a week the last time she was in the ER. See H&P Thyroid Storm, Sepsis, PE, Anemia, ECG Transfer higher level of care Refused transfer by squad - spouse to transfer by private car. Transfer Center Notified. Additional Clinical Comments ED Transfer - Recommended further evaluation and treatment at the emergency room. Discussed personal transport vs EMS. Refused transfer by squad. Client's spouse is coming to the clinic to transport her to the ER (she drove herself to the clinic). Pulse Readings from Last 3 Encounters: 05/12/23 (!) 142 12/03/22 99 12/02/22 98 Subjective 33 y.o. female presents with Cough (Cough, head/chest congestions, fatigue x 3 to 4 days. Work note needed.) Cough, congestion and fatigue for 3 to 4 days. Reports shortness of breath. Severe fatigue with any activity. History of hyperthyroidism and anemia from blood loss. States she has not remembered to take her medications. Client with pain in the back with cough. Ill 3 to 4 days. Cough This is a new problem. The current episode started in the past 7 days. The problem has been waxing and waning. Associated symptoms include chills, a fever, headaches, myalgias, nasal congestion, rhinorrhea and shortness of breath. Pertinent negatives include no sore throat or wheezing. Exacerbated by: activitiy. She has tried nothing for the symptoms. Review Of Systems Review of Systems Constitutional: Positive for chills, diaphoresis, fatigue and fever. HENT: Positive for congestion and rhinorrhea. Negative for sore throat. Respiratory: Positive for cough and shortness of breath. Negative for wheezing. Gastrointestinal: Negative for diarrhea, nausea and vomiting. Musculoskeletal: Positive for back pain and myalgias. Neurological: Positive for headaches. Medical History Past Medical History: Diagnosis Date Acute blood loss anemia 11/20/2022 Depression 08/02/2015 Subclinical hyperthyroidism 08/02/2015 Substance abuse (HCC) Past Surgical History: Procedure Laterality Date APPENDECTOMY Patient Active Problem List Diagnosis Acute blood loss anemia Hepatitis B immune Low TSH level Depression Dysplasia of cervix, high grade SEDRICK 2 Excessive daytime sleepiness Morbid obesity due to excess calories (HCC) Hyperthyroidism Iron deficiency anemia due to chronic blood loss Social History Social History Tobacco Use Smoking status: Every Day Packs/day: 1.00 Years: 10.00 Additional pack years: 0.00 Total pack years: 10.00 Types: Cigarettes Smokeless tobacco: Never Vaping Use Vaping Use: Some days Substances: Nicotine, Flavoring Devices: Disposable Substance Use Topics Alcohol use: No Drug use: Not Currently Frequency: 5.0 times per week Types: Marijuana, Methamphetamines, Heroin Comment: last use of heroin was in 2016, last meth was early November 2022 Family History Family History Problem Relation Age of Onset Depression Mother Diabetes Mother Hypertension Mother Hyperlipidemia Father Lymphoma Sister No Known Problems Brother Objective Physical Exam BP 113/81 (BP Location: Left arm, Patient Position: Sitting, BP Cuff Size: Adult) Pulse (!) 142 Comment: at discharge to ED / kse Temp 98.6 F (37 C) (Oral) Resp 16 Ht 5' 6 Wt 67.8 kg (149 lb 6.4 oz) SpO2 97% BMI 24.11 kg/m Vision/Hearing Exam:No results found. Physical Exam Vitals and nursing note reviewed. Constitutional: General: She is not in acute distress. Appearance: She is ill-appearing and diaphoretic. She is not toxic-appearing. HENT: Head: Normocephalic and atraumatic. Right Ear: Tympanic membrane, ear canal and external ear normal. Left Ear: Tympanic membrane, ear canal and external ear normal. Nose: Congestion present. Mouth/Throat: Mouth: Mucous membranes are moist. Pharynx: Oropharynx is clear. Cardiovascular: Rate and Rhythm: Regular rhythm. Tachycardia present. Heart sounds: Normal heart sounds. Pulmonary: Effort: Pulmonary effort is normal. No respiratory distress. Breath sounds: Normal breath sounds. No wheezing or rales. Comments: Moist cough. Skin: Coloration: Skin is pale. Neurological: Mental Status: She is alert. Psychiatric: Mood and Affect: Mood normal. Behavior: Behavior normal. Procedure Notes Procedures Results Recent Results (from the past 168 hour(s)) ECG 12 Lead Collection Time: 05/12/23 6:04 PM Result Value Ref Range Atrial Rate Ventricular Rate P-R Interval QRS Duration Q-T Interval Q-T Interval (corrected) QTC Calculation (Bezet) P Paisley R Paisley T Paisley No orders to display Orders Placed This Visit Orders Placed This Encounter Procedures Ambulatory referral to Emergency Medicine ECG 12 Lead Medication List At End Of Visit Current Outpatient Medications Medication Sig Dispense Refill escitalopram oxalate (LEXAPRO) 10 MG tablet Take 1 (one) tablet (10 mg total) by mouth daily . 90 tablet 3 ferrous sulfate 325 (65 FE) MG tablet Take 1 (one) tablet (325 mg total) by mouth 2 (two) times a day . 360 tablet 0 levonorgestreL (MIRENA) 21 mcg/24 hours (8 yrs) 52 mg IUD 1 (one) each by Intrauterine route once . methIMAzole (TAPAZOLE) 5 MG tablet Take 1 (one) tablet (5 mg total) by mouth daily . 30 tablet 1 propranoloL (INDERAL LA) 60 MG 24 hr capsule Take 1 (one) capsule (60 mg total) by mouth daily . 90 capsule 3 diclofenac sodium 1 % Gel Apply dime size amount to top of left hand twice a day as needed for pain . (Patient not taking: Reported on 05/12/2023 .) 20 g 0 gabapentin (Neurontin) 300 MG capsule Take 1 (one) capsule (300 mg total) by mouth every night at bedtime . 30 capsule 0 pantoprazole (PROTONIX) 40 MG tablet Take 1 (one) tablet (40 mg total) by mouth 2 (two) times a day . 60 tablet 0 No current facility-administered medications for this visit. Patient Instructions Go directly to the [facility] ER [address]. documented in this encounter [facility] 11-23-2022 Hospital course Narrative [facility] DISCHARGE SUMMARY -- [facility] Venegas Admitted: 11/20/2022 Discharge Date: 11/23/22 PCP Handoff Recommended Outpatient Testing Results Pending At Discharge Clinical Summary Myles Venegas is a 32 y.o. female patient of Jaiden Mcgill MD with history of IV drug use and tobacco abuse. She is admitted on 11/20/2022 with acute anemia. Symptomatic acute microcytic anemia: Suspected acute blood loss anemia Highly suspected GI bleeding Presenting with fatigue and dizziness. Hemoglobin on admission 5.5 with significant microcytosis on labs. With occasional melena have high suspicion for enteric blood loss. No significant vaginal bleeding since IUD 2 years ago. History of nonsteroidal use Status post 2 units packed RBCs transfusion 11/20/2022 Currently hemoglobin stable 7.7 > 8.2 > 7.8 stable Trend CBC every 6 hours Transfuse accordingly IV Protonix drip then p.o. Protonix 40 mg twice daily. Clear diet, advance as tolerated General surgery consulted and recommended upper endoscopy and colonoscopy as an outpatient if hemoglobin remained stable. Iron deficiency anemia IV iron 300 mg daily for 3 days then p.o. ferrous sulfate twice daily on discharge. IV drug use: Polysubstance use Reports last use greater than 2 years ago, however UDS showing cannabinoids fentanyl and amphetamines. Counseling provided to stop illicit drug use. Addiction medicine consulted recommended N-acetylcysteine. Nicotine patch. Follow-up with addiction medicine as an outpatient. Hepatitis B viral infection Hepatitis C viral infection Secondary to IV drug use Infectious med consulted, appreciate recommendations Plan to start treatment as an outpatient. Follow-up with ID as an outpatient. Thrombocytosis: Suspect has underlying iron deficiency Daily CBC Tobacco abuse: Counseled on cessation Nicotine patch Benign adrenal mass Incidental finding CT abdomen noted on 11/[address] abdomen adrenal protocol showed benign mass. We discharge patient home after improvement of general condition. Patient to follow-up with PCP in 1 week. Follow-up with addiction medicine, general surgery, infectious disease as an outpatient. Discharge Medications Discharge Medications New Medications Details N-acetylcysteine 600 mg capsule Commonly known as: NAC Take 2 (two) capsules (1,200 mg total) by mouth 2 (two) times a day . Quantity: 120 capsule nicotine 21 mg/24 hr Commonly known as: NICODERM CQ Start taking on: November 24, [address] Place 1 (one) patch on the skin daily Start: 11/24/22. Quantity: 28 patch pantoprazole 40 MG tablet Commonly known as: PROTONIX Take 1 (one) tablet (40 mg total) by mouth 2 (two) times a day . Quantity: 60 tablet Stopped Medications levonorgestreL 21 mcg/24 hours (8 yrs) 52 mg IUD Commonly known as: MIRENA Physician(s) Follow Up: Gio Bach MD [address] [phone] Schedule an appointment as soon as possible for a visit next week Jaiden Mcgill MD [address] [facility] [id number] Follow up in 1 week(s) Denis Ortega MD [address] [phone] Follow up in 1 week(s) Bobby Ramirez MD [address] [id number] Follow up in 1 week(s) Condition at Discharge: Stable Disposition: Home I reviewed discharge recommendations with the patient in person. Patient instructions, including activity, were given to the patient/family at discharge. On day of discharge I saw [facility] Venegas and spent: > 30 minutes on discharge. Completed by: Saturnino Jackson on 11/23/22, 1:30 PM documented in this encounter [facility] 11-23-2022 Note Formatting of this n ote might be different from the original. Problem: Actual or potential alteration in health Goal: Absence of healthcare acquired conditions Outcome: Met Goal: Knowledge of Interdisciplinary Plan of Care Outcome: Met Goal: Knowledge of Enviroment Outcome: Met Problem: Pain Goal: Manage acute pain Outcome: Met Goal: Manage chronic pain Outcome: Met Goal: Reduced pain sensation Outcome: Met Goal: Achievement of comfort function goal Outcome: Met [facility] 11-23-2022 Miscellaneous Notes Problem: Actual or potential alteration in health Goal: Absence of healthcare acquired conditions Outcome: Met Goal: Knowledge of Interdisciplinary Plan of Care Outcome: Met Goal: Knowledge of Enviroment Outcome: Met Problem: Pain Goal: Manage acute pain Outcome: Met Goal: Manage chronic pain Outcome: Met Goal: Reduced pain sensation Outcome: Met Goal: Achievement of comfort function goal Outcome: Met MRI Adrenals w/o&w changed to without. Patient unable to hold breath, unable to continue. Dr. Jackson ordering Physician notified. Problem: Actual or potential alteration in health Goal: Absence of healthcare acquired conditions Outcome: Met No healthcare acquired conditions Problem: Actual or potential alteration in health Goal: Absence of healthcare acquired conditions Outcome: Partially Met Goal: Knowledge of Interdisciplinary Plan of Care Outcome: Partially Met Goal: Knowledge of Enviroment Outcome: Partially Met Problem: Pain Goal: Manage acute pain Outcome: Partially Met Goal: Manage chronic pain Outcome: Partially Met Goal: Reduced pain sensation Outcome: Partially Met Goal: Achievement of comfort function goal Outcome: Partially Met Problem: Pain Goal: Manage acute pain Outcome: Met Acute pain managed this shift Problem: Actual or potential alteration in health Goal: Absence of healthcare acquired conditions 11/20/2022 174 by Sylvia Lawson RN Outcome: Partially Met 11/20/2022 1606 by Sylvia Lawson RN Outcome: Partially Met Goal: Knowledge of Interdisciplinary Plan of Care 11/20/20221742 by Sylvia Lawson RN Outcome: Partially Met 11/20/2022 1606 by Sylvia Lawson RN Outcome: Partially Met Goal: Knowledge of Enviroment 11/20/20221742 by Sylvia Lawson RN Outcome: Partially Met 11/20/2022 1606 by Sylvia Lawson RN Outcome: Partially Met Problem: Actual or potential alteration in health Goal: Absence of healthcare acquired conditions Outcome: Partially Met Goal: Knowledge of Interdisciplinary Plan of Care Outcome: Partially Met Goal: Knowledge of Enviroment Outcome: Partially Met documented in this encounter [facility] 11-22-2022 History of Present illness Narrative Patient Name: Myles Venegas Admit Date: [id number] MR #: [id number] : 1990 Physicians: Jaiden Mcgill MD (Family); No ref. provider found (Referring) Assessment: Patient with 1. Severe anemia, ?etiology 2. Chronic hepatitis C 3. History of IV drug use. 4. Multiple dental caries. 5. Hepatitis B exposure, but cleared by self. Plan. Continue patient on current therapy Patient currently on IV iron infusion I reviewed blood cultures with no growth. Urinalysis did not show any blood in the urine. Drug screening has shown amphetamine and cannabinoid. Follow-up hepatitis C RNA, and genotype. I reviewed hepatitis C antibody with positive report. Reviewed HIV with negative report. I reviewed CT scan with IUD in place. Mild diffuse colonic stool burden, no obstruction. I reviewed cxr, with no acute or lung disease identified. Patient will be followed in the office postdischarge for treatment and management of chronic hepatitis C. I appreciate gastroenterology evaluation. Encourage patient to get to the dentist for dental extractions. Consider Panorex. We will continue to follow with you. Subjective:Patient with no new symptoms today. No fever or chills reported. Tmax of 98.7. Saturating at 99% on room air. Patient scheduled for MRI of the adrenal gland. Exam: PACU Vitals 11/22/22 1531 BP: 131/78 Pulse: (!) 114 Resp: (!) 25 Temp: 98.2 F (36.8 C) SpO2: 99% Allergies: Patient has no known allergies. Current Facility-Administered Medications: acetaminophen (TYLENOL) tablet 650 mg, 650 mg, Oral, Q4H PRN, Lynda Shaikh MD, 650 mg at 11/20/22 2204 hydrOXYzine (ATARAX) tablet 50 mg, 50 mg, Oral, Q6H PRN, Denis Ortega MD iron sucrose (VENOFER) 300 mg in sodium chloride 0.9% (NS) 250 mL IVPB, 300 mg, Intravenous, Q24H, Saturnino Jackson MD, Last Rate: 166.7 mL/hr at 11/22/22 1058, 300 mg at 11/22/22 1058 melatonin tablet 3 mg, 3 mg, Oral, Nightly PRN, Lynda Shaikh MD N-acetylcysteine (NAC) capsule 1,200 mg, 1,200 mg, Oral, BID, Denis Ortega MD, 1,200 mg at 11/22/22 0825 nicotine (NICODERM CQ) 21 mg/24 hr 1 patch, 1 patch, Transdermal, Daily, Lynda Shaikh MD, 1 patch at 11/22/22 0825 pantoprazole (PROTONIX) EC tablet 40 mg, 40 mg, Oral, BID, Sonia Hull CNP, 40 mg at 11/22/22 0825 Saline lock IV, , , Continuous AND sodium chloride (PF) (NS) flush 5 mL, 5 mL, Intravenous, PRN AND sodium chloride (PF) (NS) flush 5 mL, 5 mL, Intravenous, Q8H KIRK, 5 mL at 11/21/222032 AND sodium chloride 0.9% (NS), 0-150 mL/hr, Intravenous, PRN, Lynda Shaikh MD PMH/PSH/SH/ reviewed, no change : Review of Systems: All systems were reviewed no change: Medications Reviewed. Chart Reviewed. Exam Findings: HEENT: Atraumatic/Pupils equal & reactive Neck: Supple, no rigidity ENT: No oral candidiasis Chest: Lungs clear bilaterally, no wheezing, or rales CVS: Normal S1 & S2+ Abdomen: Normal symmetry, Soft/non-tender. 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 I reviewed Labs. MR Adrenal Glands Without Contrast Final Result Motion limited study is nondiagnostic for evaluation of adrenal nodule. Contrast-enhanced adrenal-protocol CT is suggested for further evaluation. No acute abdominal process identified. [facility]/quyenw Workstation ID: [id number] CT Abdomen Pelvis With IV Contrast Only Final Result Evaluation is somewhat degraded by motion. Particularly in the upper abdomen. No acute findings to account for patient's symptoms. Mild diffuse colonic stool burden without evidence of bowel obstruction. Grossly, no bowel mass or inflammatory changes. Recommend colonoscopy/endoscopy if concern for GI bleed. No obstructive uropathy. Left ovarian cyst, 3.[address] Indeterminate right adrenal nodule measuring up to 1.6 cm. Recommend nonemergent enhanced CT with adrenal mass protocol. Prior appendectomy. / Workstation ID: [id number] XR Chest 1 View Final Result No acute heart or lung disease identified. Workstation ID: [id number] Laboratory and Additional Data Reviewed: Laboratory 11/22/22 5:00 PM Microbiology 11/22/22 5:00 PM Radiology 11/22/22 5:00 PM Medications 11/22/22 5:00 PM Lab Results Component Value Date WBC 6.56 11/22/2022 HGB 8.2 (L) 11/22/2022 HCT 29.0 (L) 11/22/2022 MCV 73.6 (L) 11/22/2022 PLT 418 (H) 11/22/2022 Lab Results Component Value Date GLUCOSE 97 11/22/2022 CALCIUM 8.7 11/22/2022 NA 142 11/22/2022 K 4.0 11/22/2022 CL 111 (H) 11/22/2022 BUN 9 11/22/2022 CREATININE 0.38 (L) 11/22/2022 Problem List Items Addressed This Visit None Visit Diagnoses Dizziness - Primary Anemia, unspecified type Relevant Medications iron sucrose (VENOFER) 300 mg in sodium chloride 0.9% (NS) 250 mL IVPB Gastrointestinal hemorrhage, unspecified gastrointestinal hemorrhage type Weakness generalized I have taken time to review patient's information and having discussions with appropriate care teams, I appreciate seeing your patient, will continue to follow with you, and adjust with more information. Medical Decision Making: Moderate This note is created with the assistance of a speech-recognition program. While intending to generate a document that actually reflects the content of the visit, the document can still have some errors including those of syntax and sound a- like substitutions which may escape proofreading. In such instances, actual meaning can be extrapolated by contextual derivation. [facility] PROGRESS NOTE Assessment and Plan Myles Venegas is a 32 y.o. female patient of Jaiden Mcgill MD with history of IV drug use and tobacco abuse. She is admitted on 11/20/2022 with acute anemia. Symptomatic acute microcytic anemia: Suspected acute blood loss anemia Highly suspected GI bleeding Presenting with fatigue and dizziness. Hemoglobin on admission 5.5 with significant microcytosis on labs. With occasional melena have high suspicion for enteric blood loss. No significant vaginal bleeding since IUD 2 years ago. History of nonsteroidal use Status post 2 units packed RBCs transfusion 11/20/2022 Currently hemoglobin stable 7.7 > 8.2 Trend CBC every 6 hours Transfuse accordingly IV Protonix drip then p.o. Protonix 40 mg twice daily. Clear diet, advance as tolerated General surgery consulted and recommended upper endoscopy and colonoscopy as an outpatient if hemoglobin remained stable. Iron deficiency anemia IV iron 300 mg daily for 3 days then p.o. ferrous sulfate twice daily on discharge. IV drug use: Polysubstance use Reports last use greater than 2 years ago, however UDS showing cannabinoids fentanyl and amphetamines Hepatitis B viral infection Hepatitis C viral infection Secondary to IV drug use Infectious med consulted, appreciate recommendations Thrombocytosis: Suspect has underlying iron deficiency Daily CBC Tobacco abuse: Counseled on cessation Nicotine patch ? Adrenal mass Incidental finding CT abdomen noted on 11/20 We will get MRI abdomen Disposition Estimated Discharge Date: 11/23/2022 Discharge Location: Home Outpatient Testing: Quality Measures DVT Prophylaxis: SCDs Quinn Catheter: absent Code Status Full Code; code status verified on 11/21/2022 with patient (capacity intact) Primary Contact Information Subjective No new complaint Denied any chest pain shortness of breath lightheaded dizzy. Denied any nausea vomiting abdominal pain Discussed with the nursing staff Objective BP 121/79 Pulse (!) 100 Temp 98.2 F (36.8 C) (Oral) Resp 16 Ht 5' 6 Wt 74.4 kg (164 lb) SpO2 97% BMI 26.47 kg/m Physical Examination General Appearance: alert; well appearing; in no acute distress HEENT: Head- normocephalic; Eyes- EOMI, sclera anicteric; Throat- mucous membranes moist Cardiovascular: regular rate and rhythm; normal S1, S2; no murmurs, rubs, clicks or gallops; peripheral edema absent Respiratory: lungs clear to auscultation; without wheezes, rales or rhonchi; on room air Abdomen: soft, non-tender, non-distended Neurological: oriented x 3; normal speech; no focal findings or movement disorder noted Musculoskeletal: no significant deformity or tenderness to palpation Skin: Pallor Psych: normal mood and affect [facility] PROGRESS NOTE Assessment and Plan Myles Venegas is a 32 y.o. female patient of Jaiden Mcgill MD with history of IV drug use and tobacco abuse. She is admitted on 11/20/2022 with acute anemia. Symptomatic acute microcytic anemia: Suspected acute blood loss anemia Highly suspected GI bleeding Presenting with fatigue and dizziness. Hemoglobin on admission 5.5 with significant microcytosis on labs. With occasional melena have high suspicion for enteric blood loss. No significant vaginal bleeding since IUD 2 years ago. History of nonsteroidal use Status post 2 units packed RBCs transfusion 11/20/2022 Currently hemoglobin stable 7.7 Trend CBC every 6 hours Transfuse accordingly IV Protonix drip Clear diet, advance as tolerated General surgery consulted and recommended upper endoscopy and colonoscopy as an outpatient if hemoglobin remained stable. Iron deficiency anemia IV iron 300 mg daily for 3 days then p.o. ferrous sulfate twice daily on discharge. IV drug use: Polysubstance use Reports last use greater than 2 years ago, however UDS showing cannabinoids fentanyl and amphetamines Hepatitis B viral infection Hepatitis C viral infection Secondary to IV drug use Infectious med consulted, appreciate recommendations Thrombocytosis: Suspect has underlying iron deficiency Daily CBC Tobacco abuse: Counseled on cessation Nicotine patch ? Adrenal mass Incidental finding CT abdomen noted on 11/20 We will get MRI abdomen Disposition Estimated Discharge Date: 11/23/2022 Discharge Location: Home Outpatient Testing: Quality Measures DVT Prophylaxis: SCDs Quinn Catheter: absent Code Status Full Code; code status verified on 11/21/2022 with patient (capacity intact) Primary Contact Information Subjective No new complaint Denied any chest pain shortness of breath lightheaded dizzy. Denied any nausea vomiting abdominal pain Feeling hungry Discussed with the nursing staff Objective BP 138/89 Pulse (!) 116 Temp 98.3 F (36.8 C) Resp (!) 21 Ht 5' 6 Wt 74.4 kg (164 lb) SpO2 98% BMI 26.47 kg/m Physical Examination General Appearance: alert; well appearing; in no acute distress HEENT: Head- normocephalic; Eyes- EOMI, sclera anicteric; Throat- mucous membranes moist Cardiovascular: regular rate and rhythm; normal S1, S2; no murmurs, rubs, clicks or gallops; peripheral edema absent Respiratory: lungs clear to auscultation; without wheezes, rales or rhonchi; on room air Abdomen: soft, non-tender, non-distended Neurological: oriented x 3; normal speech; no focal findings or movement disorder noted Musculoskeletal: no significant deformity or tenderness to palpation Skin: normal coloration Psych: normal mood and affect DAILY PROGRESS NOTE Patient Name: Myles Venegas MR #: [id number] Assessment/Plan: 32 y.o. female with history of polysubstance abuse presenting with complaints of weakness and dizziness. Patient appears to be a poor historian but says for the last couple weeks she has been fatigued, weak, and dizzy, states she has been tired and sleeping a lot. Hemoglobin 5.5 on labs. GI consulted for concerns of GI bleed. Anemia- Normotensive, tachycardic, afebrile Hemoglobin 7.2 (7.8 post transfusion of 2 units) No bowel movement in 2 days--Stool occult blood pending collection; guaiac negative in ED Asymptomatic after receiving blood transfusion Receiving iron infusion currently Pantoprazole po twice daily Tolerating clear liquid diet Has never had EGD or colonoscopy Patient feeling better after transfusion no hematemesis or bloody or black stools. No bowel movement in 2 days. Guaiac negative in ED. Patient appears stable posttransfusion and is asymptomatic. Advance diet and PPI po bid. Patient needs EGD and colonoscopy which can be completed as outpatient. If hemoglobin remains stable can likely discharge per GI standpoint on PPI twice daily and follow-up for outpatient scopes regarding LORENA. Follow-up next week with Dr. Bach in the office. GI will sign off, please call with concerns or questions Pending Lab and Radiology Results Order Current Status ACTH In process APTT In process Hepatitis B Chronic Panel In process Hepatitis Be Antibody In process Hepatitis C Virus Quantitation In process PT/INR In process Thyroglobulin Antibody In process Interpretation of Testing: I personally reviewed the labs, notes Review of Systems: All other systems reviewed and negative other than HPI Subjective: Feeling better, hungry. Tolerated clear liquid diets yesterday. Denies nausea, vomiting, heartburn, abdominal pain, bowel movement or red blood per rectum. Objective: Physical Examination: BP 135/80 Pulse (!) 108 Temp 98.6 F (37 C) (Oral) Resp (!) 23 Ht 5' 6 Wt 74.4 kg (164 lb) SpO2 100% BMI 26.47 kg/m General Appearance: Alert, well appearing, and in no acute distress. Neck: Supple, trachea midline. Cardiovascular: S1, S2 normal. No murmurs, rubs, clicks or gallops appreciated. No pedal edema. Respiratory: Lungs clear to auscultation, no wheezes, rales or rhonchi heard. Abdomen: Soft, non-tender, normal bowel sounds, non-distended, no masses or organomegaly appreciated. Neurological: Grossly normal motor and sensory exam. No focal deficits. Musculoskeletal: No joint tenderness, deformity or swelling. Skin: Normal coloration and turgor. No rashes. Psych: Alert, oriented x 3. Normal mood and affect. Results from last 7 days Lab Units 11/21/22 1158 11/21/22 0606 11/20/22 2157 WBC K/mcL 5.17 5.43 10.20 HGB g/dL 7.7* 7.2* 7.8* HCT % 26.6* 24.2* 28.0* PLT K/mcL 394 345 409* Results from last 7 days Lab Units 11/21/22 0606 11/20/22 1133 SODIUM mmol/L 141 139 POTASSIUM mmol/L 3.9 4.4 CHLORIDE mmol/L 112* 109* BUN mg/dL 7* 11 CREATININE mg/dL 0.34* 0.49 CALCIUM mg/dL 8.9 -- TOTAL PROTEIN g/dL -- 7.0 ALK PHOS U/L -- 82 ALTR U/L -- 23 AST U/L -- 14 GLUCOSE mg/dL 83 97 Intake/Output last 3 shifts: I/O last 3 completed shifts: In: 1352.5 [I.V.:152.5; Blood:1200] Out: - Laboratory and Additional Data Reviewed: Reviewed 11/21/22 12:23 PM: Laboratory, Radiology, Medications, and Transcriptions Please note: Portions of this chart may have been created with [employer] voice recognition software. Occasional wrong-word or sound-like substitutions may have occurred due to inherent limitations of the voice recognition software. Please read the chart carefully and recognize, using context, where the substitutions have occurred. documented in this encounter [facility] 11-22-2022 Note Motion limited study is nondiagnostic for evaluation of adrenal nodule. Contrast-enhanced adrenal-protocol CT is suggested for further evaluation. No acute abdominal process identified. FITZ/lizeth Workstation ID: [id number] [facility] 11-22-2022 Note Formatting of this n ote might be different from the original. MRI Adrenals w/o&w changed to without. Patient unable to hold breath, unable to continue. Dr. Jackson ordering Physician notified. [facility] 11-22-2022 Note Formatting of this n ote might be different from the original. Problem: Actual or potential alteration in health Goal: Absence of healthcare acquired conditions Outcome: Met No healthcare acquired conditions [facility] 11-21-2022 Note Formatting of this n ote might be different from the original. Problem: Actual or potential alteration in health Goal: Absence of healthcare acquired conditions Outcome: Partially Met Goal: Knowledge of Interdisciplinary Plan of Care Outcome: Partially Met Goal: Knowledge of Enviroment Outcome: Partially Met Problem: Pain Goal: Manage acute pain Outcome: Partially Met Goal: Manage chronic pain Outcome: Partially Met Goal: Reduced pain sensation Outcome: Partially Met Goal: Achievement of comfort function goal Outcome: Partially Met [facility] 11-21-2022 Consult note Formatting of th is note is different from the original. Patient Name: Myles Venegas MR #: [id number] : 1990 Physicians: Jaiden Mcgill MD (Family); No ref. provider found (Referring) Chief complaint: Myles Venegas is a 32 y.o. female presented with shortness of breath, and weakness. History: I have reviewed the patient's past medical history, past surgical history, family history, social history. Patient is seen today, known with history of drug use, he is presenting on this visit with lightheadedness, and history of worsening shortness of breath, especially on exertion. Stated that she lives at the basement and could not climb the stairs without having shortness of breath. She also had stated that she had lightheadedness while at her job. Patient was found with anemia, with Hb of 5.5 on admission, did not elaborate whether she had any genital bleeding or any blood in the stool. She also had a screening for hepatitis that was positive for hepatitis C antibody,And also hepatitis B core antibody, she thinks she may have gotten hepatitis C through IV drug use since 2017, she quit IV drug within the same year, but had done IV drug for up to 5 years before then. She was told one time that she had jaundice.She did not have any history of leg swellings, no history of fever, no nausea vomiting, no history of diarrhea or abdominal pain. She has not also been treated for any hepatitis C before.She is been evaluated currently for chronic hepatitis C, severe anemia, and also for antibiotics management. Past Medical History: Diagnosis Date Acute blood loss anemia 11/20/2022 Substance abuse (HCC) Past Surgical History: Procedure Laterality Date APPENDECTOMY Family History Problem Relation Age of Onset Depression Mother Diabetes Mother Hypertension Mother Hyperlipidemia Father Social History Socioeconomic History Marital status: Unknown Tobacco Use Smoking status: Every Day Packs/day: 1.00 Years: 10.00 Pack years: 10.00 Types: Cigarettes Smokeless tobacco: Never Vaping Use Vaping Use: Never used Substance and Sexual Activity Alcohol use: No Drug use: No Sexual activity: Yes Partners: Male control/protection: I.U.D. Travel History: None Animal Contact: None Medications: I have reviewed the patient's medications. Scheduled Meds: iron sucrose (VENOFER) IVPB 300 mg Intravenous Q24H N-acetylcysteine 1,200 mg Oral BID nicotine 1 patch Transdermal Daily pantoprazole 40 mg Oral BID sodium chloride (PF) 5 mL Intravenous Q8H [facility] Allergy Information: I have reviewed the patient's allergies. Patient has no known allergies. Review of Systems: Review of Systems Constitutional: Positive for fatigue. Negative for chills and fever. Respiratory: Positive for shortness of breath. Negative for cough and wheezing. Cardiovascular: Negative for chest pain, palpitations and leg swelling. Gastrointestinal: Negative for abdominal distention, abdominal pain, constipation, diarrhea, nausea and vomiting. Endocrine: Negative for polydipsia, polyphagia and polyuria. Genitourinary: Negative for dysuria, flank pain, frequency and hematuria. Musculoskeletal: Negative for joint swelling, neck pain and neck stiffness. Skin: Negative for color change, pallor and rash. Neurological: Positive for weakness and light-headedness. Negative for dizziness, numbness and headaches. Psychiatric/Behavioral: Negative for confusion. Labs: Lab Results Component Value Date WBC 5.17 11/21/2022 HGB 7.7 (L) 11/21/2022 HCT 26.6 (L) 11/21/2022 MCV 72.7 (L) 11/21/2022 PLT 394 11/21/2022 No results found for: HGBA1C No results found for: SEDRATE No results found for: CRP Radiology: CT Abdomen Pelvis With IV Contrast Only Final Result Evaluation is somewhat degraded by motion. Particularly in the upper abdomen. No acute findings to account for patient's symptoms. Mild diffuse colonic stool burden without evidence of bowel obstruction. Grossly, no bowel mass or inflammatory changes. Recommend colonoscopy/endoscopy if concern for GI bleed. No obstructive uropathy. Left ovarian cyst, 3.[address]. Indeterminate right adrenal nodule measuring up to 1.6 cm. Recommend nonemergent enhanced CT with adrenal mass protocol. Prior appendectomy. / Workstation ID: [id number] XR Chest 1 View Final Result No acute heart or lung disease identified. Workstation ID: [id number] Physical Examination: Vital Signs: BP 135/80 Pulse (!) 108 Temp 98.6 F (37 C) (Oral) Resp (!) 23 Ht 5' 6 Wt 74.4 kg (164 lb) SpO2 100% BMI 26.47 kg/m Physical Exam Constitutional: Appearance: She is well-developed. She is ill-appearing. HENT: Head: Normocephalic. Mouth/Throat: Comments: Multiple dental caries and missing teeth noted and cavities. Eyes: General: Right eye: No discharge. Left eye: No discharge. Cardiovascular: Rate and Rhythm: Normal rate and regular rhythm. Heart sounds: Normal heart sounds. Pulmonary: Effort: No respiratory distress. Breath sounds: No wheezing or rales. Chest: Chest wall: No tenderness. Abdominal: General: There is no distension. Tenderness: There is no abdominal tenderness. There is no rebound. Musculoskeletal: General: No tenderness. Cervical back: Normal range of motion and neck supple. Right lower leg: No edema. Left lower leg: No edema. Skin: General: Skin is warm. Coloration: Skin is not pale. Findings: No rash. Neurological: Mental Status: She is alert and oriented to person, place, and time. Psychiatric: Behavior: Behavior normal. Thought Content: Thought content normal. Assessment and Plan: Patient with 1. Severe anemia, ?etiology 2. Chronic hepatitis C 3. History of IV drug use. 4. Multiple dental caries. 5. Hepatitis B exposure, but cleared by self. Plan. Continue patient on current therapy Patient currently on IV iron infusion Get blood cultures Get ESR, C-reactive protein Urinalysis did not show any blood in the urine. Drug screening has shown amphetamine and cannabinoid. Get hepatitis C RNA, and genotype. I reviewed CT scan with IUD in place. Mild diffuse colonic stool burden, no obstruction. I reviewed cxr, with no acute or lung disease identified. Patient will be followed in the office postdischarge for treatment and management of chronic hepatitis C. I appreciate gastroenterology evaluation. Encourage patient to get to the dentist for dental extractions. Consider Panorex. We will continue to follow with you. Problem List Items Addressed This Visit None Visit Diagnoses Dizziness - Primary Anemia, unspecified type Relevant Medications iron sucrose (VENOFER) 300 mg in sodium chloride 0.9% (NS) 250 mL IVPB Gastrointestinal hemorrhage, unspecified gastrointestinal hemorrhage type Weakness generalized I have taken time to review patient's information and having discussions, I appreciate seeing your patient, will continue to follow with you, and adjust with more information. Medical decision making.High. Drug Rx requiring intensive monitoring for toxicity and side effects; Extensive discussion regarding a diagnosis and multiple treatment options. This note is created with the assistance of a speech-recognition program. While intending to generate a document that actually reflects the content of the visit, the document can still have some errors including those of syntax and sound a- like substitutions which may escape proofreading. In such instances, actual meaning can be extrapolated by contextual derivation. [facility] 11-21-2022 Consult note Formatting of th is note is different from the original. Patient Name: Myles Venegas MR #: [id number] : 1990 Physicians: Jaiden Mcgill MD (Family); No ref. provider found (Referring) Chief complaint: Myles Venegas is a 32 y.o. female presented with shortness of breath, and weakness. History: I have reviewed the patient's past medical history, past surgical history, family history, social history. Patient is seen today, known with history of drug use, he is presenting on this visit with lightheadedness, and history of worsening shortness of breath, especially on exertion. Stated that she lives at the basement and could not climb the stairs without having shortness of breath. She also had stated that she had lightheadedness while at her job. Patient was found with anemia, with Hb of 5.5 on admission, did not elaborate whether she had any genital bleeding or any blood in the stool. She also had a screening for hepatitis that was positive for hepatitis C antibody,And also hepatitis B core antibody, she thinks she may have gotten hepatitis C through IV drug use since 2016, she quit IV drug within the same year, but had done IV drug for up to 5 years before then. She was told one time that she had jaundice.She did not have any history of leg swellings, no history of fever, no nausea vomiting, no history of diarrhea or abdominal pain. She has not also been treated for any hepatitis C before.She is been evaluated currently for chronic hepatitis C, severe anemia, and also for antibiotics management. Past Medical History: Diagnosis Date Acute blood loss anemia 11/20/2022 Substance abuse (HCC) Past Surgical History: Procedure Laterality Date APPENDECTOMY Family History Problem Relation Age of Onset Depression Mother Diabetes Mother Hypertension Mother Hyperlipidemia Father Social History Socioeconomic History Marital status: Unknown Tobacco Use Smoking status: Every Day Packs/day: 1.00 Years: 10.00 Pack years: 10.00 Types: Cigarettes Smokeless tobacco: Never Vaping Use Vaping Use: Never used Substance and Sexual Activity Alcohol use: No Drug use: No Sexual activity: Yes Partners: Male control/protection: I.U.D. Travel History: None Animal Contact: None Medications: I have reviewed the patient's medications. Scheduled Meds: iron sucrose (VENOFER) IVPB 300 mg Intravenous Q24H N-acetylcysteine 1,200 mg Oral BID nicotine 1 patch Transdermal Daily pantoprazole 40 mg Oral BID sodium chloride (PF) 5 mL Intravenous Q8H KIRK Allergy Information: I have reviewed the patient's allergies. Patient has no known allergies. Review of Systems: Review of Systems Constitutional: Positive for fatigue. Negative for chills and fever. Respiratory: Positive for shortness of breath. Negative for cough and wheezing. Cardiovascular: Negative for chest pain, palpitations and leg swelling. Gastrointestinal: Negative for abdominal distention, abdominal pain, constipation, diarrhea, nausea and vomiting. Endocrine: Negative for polydipsia, polyphagia and polyuria. Genitourinary: Negative for dysuria, flank pain, frequency and hematuria. Musculoskeletal: Negative for joint swelling, neck pain and neck stiffness. Skin: Negative for color change, pallor and rash. Neurological: Positive for weakness and light-headedness. Negative for dizziness, numbness and headaches. Psychiatric/Behavioral: Negative for confusion. Labs: Lab Results Component Value Date WBC 5.17 11/21/2022 HGB 7.7 (L) 11/21/2022 HCT 26.6 (L) 11/21/2022 MCV 72.7 (L) 11/21/2022 PLT 394 11/21/2022 No results found for: HGBA1C No results found for: SEDRATE No results found for: CRP Radiology: CT Abdomen Pelvis With IV Contrast Only Final Result Evaluation is somewhat degraded by motion. Particularly in the upper abdomen. No acute findings to account for patient's symptoms. Mild diffuse colonic stool burden without evidence of bowel obstruction. Grossly, no bowel mass or inflammatory changes. Recommend colonoscopy/endoscopy if concern for GI bleed. No obstructive uropathy. Left ovarian cyst, 3.[address]. Indeterminate right adrenal nodule measuring up to 1.6 cm. Recommend nonemergent enhanced CT with adrenal mass protocol. Prior appendectomy. / Workstation ID: [id number] XR Chest 1 View Final Result No acute heart or lung disease identified. Workstation ID: [id number] Physical Examination: Vital Signs: BP 135/80 Pulse (!) 108 Temp 98.6 F (37 C) (Oral) Resp (!) 23 Ht 5' 6 Wt 74.4 kg (164 lb) SpO2 100% BMI 26.47 kg/m Physical Exam Constitutional: Appearance: She is well-developed. She is ill-appearing. HENT: Head: Normocephalic. Mouth/Throat: Comments: Multiple dental caries and missing teeth noted and cavities. Eyes: General: Right eye: No discharge. Left eye: No discharge. Cardiovascular: Rate and Rhythm: Normal rate and regular rhythm. Heart sounds: Normal heart sounds. Pulmonary: Effort: No respiratory distress. Breath sounds: No wheezing or rales. Chest: Chest wall: No tenderness. Abdominal: General: There is no distension. Tenderness: There is no abdominal tenderness. There is no rebound. Musculoskeletal: General: No tenderness. Cervical back: Normal range of motion and neck supple. Right lower leg: No edema. Left lower leg: No edema. Skin: General: Skin is warm. Coloration: Skin is not pale. Findings: No rash. Neurological: Mental Status: She is alert and oriented to person, place, and time. Psychiatric: Behavior: Behavior normal. Thought Content: Thought content normal. Assessment and Plan: Patient with 1. Severe anemia, ?etiology 2. Chronic hepatitis C 3. History of IV drug use. 4. Multiple dental caries. 5. Hepatitis B exposure, but cleared by self. Plan. Continue patient on current therapy Patient currently on IV iron infusion Get blood cultures Get ESR, C-reactive protein Urinalysis did not show any blood in the urine. Drug screening has shown amphetamine and cannabinoid. Get hepatitis C RNA, and genotype. I reviewed CT scan with IUD in place. Mild diffuse colonic stool burden, no obstruction. I reviewed cxr, with no acute or lung disease identified. Patient will be followed in the office postdischarge for treatment and management of chronic hepatitis C. I appreciate gastroenterology evaluation. Encourage patient to get to the dentist for dental extractions. Consider Panorex. We will continue to follow with you. Problem List Items Addressed This Visit None Visit Diagnoses Dizziness - Primary Anemia, unspecified type Relevant Medications iron sucrose (VENOFER) 300 mg in sodium chloride 0.9% (NS) 250 mL IVPB Gastrointestinal hemorrhage, unspecified gastrointestinal hemorrhage type Weakness generalized I have taken time to review patient's information and having discussions, I appreciate seeing your patient, will continue to follow with you, and adjust with more information. Medical decision making.High. Drug Rx requiring intensive monitoring for toxicity and side effects; Extensive discussion regarding a diagnosis and multiple treatment options. This note is created with the assistance of a speech-recognition program. While intending to generate a document that actually reflects the content of the visit, the document can still have some errors including those of syntax and sound a- like substitutions which may escape proofreading. In such instances, actual meaning can be extrapolated by contextual derivation. ADDICTION MEDICINE CONSULT NOTE Patient Name: Myles Venegas Admit Date: [id number] MR #: [id number] : 1990 Physicians: Jaiden Mcgill MD (Family); No ref. provider found (referring) Principal Problem: Acute blood loss anemia Assessment and Plan: METH FENTANYL THC USE. Patient states just one time recent meth and did not know fentanyl. Denies cravings or withdrawal. Daily THC to relax. Will add NAC 1200 BID and see how she does. Wants to get back with [address] [place] [address] Dr Mcgill for medical and denies need for MAT or AOD at this time. TSH < 0.01. Common with Meth use and usually goes up within a few days with free T4 and T3 usually normal. T3 was up and repeating today and may need Endocrine input. Eventually will need to get back to [facility] with having abnormal PAP / HPV. If she does show signs of withdrawal or feels she does have an addiction needing further follow up we can be re consulted. Adding hydroxyzine for anxiety until thyroid follow up Assessment Detail: The total time spent for this visit was 60 to 65 minutes. Greater than 50% of the time was spent in counseling and coordination of care. Reason for Consult: Management of substance use disorder Counseling services. Polysubstance use History of Present Illness: Myles Venegas is a 32 y.o. y/o female presenting from with c/o shortness of breath Chief Complaint Patient presents with Dizziness Patient in 3700. Lives with 6 to 8 roommates - all of whom are sober. Reports had been addicted to opiates thru 2016 and stopped cold turkey after an OD. Picked up meth for a couple years and stopped a year ago again cold turkey Does smoke nicotine and THC (for her anxiety) daily. States went with the wrong friends Thursday and Thursday and ate? What she thought was meth but did feel a little funny. Did not knowingly use fentanyl Adamant no IV for a couple years Past Medical History: Diagnosis Date Acute blood loss anemia 11/20/2022 Substance abuse (HCC) Past Surgical History: Procedure Laterality Date APPENDECTOMY Family History Problem Relation Age of Onset Depression Mother Diabetes Mother Hypertension Mother Hyperlipidemia Father Social History Socioeconomic History Marital status: Unknown Tobacco Use Smoking status: Every Day Packs/day: 1.00 Years: 10.00 Pack years: 10.00 Types: Cigarettes Smokeless tobacco: Never Vaping Use Vaping Use: Never used Substance and Sexual Activity Alcohol use: No Drug use: No Sexual activity: Yes Partners: Male control/protection: I.U.D. AOD History: No problems updated. Substance(s) of Choice THC remote heroin and meth Treatment history: none Longest period of sobriety: 1 year OD history: yes Typical withdrawal symptoms: been a long time History of precipitated withdrawal: no Seizure history: no Psychiatric History: Diagnoses: no Provider: no SI or SA: no Previous Medications Medication Sig levonorgestreL (MIRENA) 20 mcg/24 hours (7 yrs) 52 mg IUD 1 (one) each by Intrauterine route See Admin Instructions . No Known Allergies Review of Systems All other systems reviewed and are negative. Patient Vitals for the past 24 hrs: BP Temp Temp src Pulse Resp SpO2 Height Weight 11/21/22 0754 131/79 -- -- (!) 106 (!) 23 100 % -- -- 11/21/22 0753 -- 98.5 F (36.9 C) Oral -- -- -- -- -- 11/21/22 0400 132/83 97.7 F (36.5 C) Infrared 99 16 100 % -- -- 11/20/22 2100 (!) 144/85 97.6 F (36.4 C) Oral (!) 106 16 100 % -- -- 11/20/22 1918 125/79 97.4 F (36.3 C) Oral (!) 112 12 100 % -- -- 11/20/22 1751 128/81 97.7 F (36.5 C) Oral (!) 107 18 -- -- -- 11/20/22 1735 (!) 141/81 98.7 F (37.1 C) -- (!) 112 (!) 20 -- -- -- 11/20/22 1600 -- -- -- -- 12 -- -- -- 11/20/22 1530 129/78 -- -- (!) 107 (!) 22 99 % -- -- 11/20/22 1515 -- -- -- (!) 109 (!) 20 99 % -- -- 11/20/22 1430 129/73 -- -- (!) 107 13 99 % -- -- 11/20/22 1345 118/70 98.7 F (37.1 C) -- (!) 108 18 100 % -- -- 11/20/22 1327 (!) 111/91 99.2 F (37.3 C) -- (!) 109 18 -- -- -- 11/20/22 1245 125/79 -- -- (!) 116 18 100 % -- -- 11/20/22 1114 136/83 97.9 F (36.6 C) Oral (!) 119 17 100 % 5' 6 74.4 kg (164 lb) Physical Exam Constitutional: Appearance: She is well-developed. Comments: Constant motion on stretcher. Very anxious and says this is her norm thinner HENT: Head: Normocephalic. Eyes: General: No scleral icterus. Pupils: Pupils are equal, round, and reactive to light. Neck: Comments: No asymetry or tenderness Cardiovascular: Rate and Rhythm: Tachycardia present. Musculoskeletal: General: Normal range of motion. Cervical back: Normal range of motion and neck supple. Pulmonary: Effort: Pulmonary effort is normal. Skin: General: Skin is warm and dry. Comments: No obvious pick albarran Neurological: General: No focal deficit present. Mental Status: She is alert and oriented to person, place, and time. Psychiatric: Mood and Affect: Mood normal. Behavior: Behavior normal. Allergy Information: I have reviewed the patient's allergies. Patient has no known allergies. Home Medications: Outpatient Medications as of 11/21/2022 Medication Sig levonorgestreL (MIRENA) 20 mcg/24 hours (7 yrs) 52 mg IUD 1 (one) each by Intrauterine route See Admin Instructions . Laboratory & Radiographic Imaging (if done): Recent Results (from the past 24 hour(s)) EKG 12-lead Collection Time: 11/20/22 11:19 AM Result Value Ref Range Ventricular Rate 111 BPM Atrial Rate 111 BPM P-R Interval 124 ms QRS Duration 92 ms Q-T Interval 330 ms QTC Calculation (Bezet) 448 ms P [place] 28 degrees R [place] 46 degrees T [place] 21 degrees Chem 7 Collection Time: 11/20/22 11:33 AM Result Value Ref Range Sodium 139 135 - 145 mmol/L Potassium 4.4 3.5 - 5.1 mmol/L Chloride 109 (H) 98 - 108 mmol/L Bicarbonate 24 21 - 32 mmol/L Anion Gap 10 10 - 20 mmol/L Glucose 97 65 - 99 mg/dL BUN 11 8 - 25 mg/dL Creatinine 0.49 0.40 - 1.10 mg/dL eGFR 129 >=60 mL/min/1.73 m2 BUN/Creatinine Ratio 22.4 (H) 10.0 - 20.0 D-Dimer, Quantitative Collection Time: 11/20/22 11:33 AM Result Value Ref Range D-Dimer 0.36 0.27 - 0.49 mcg/mL FEU Hepatic Function Panel (LFT) Collection Time: 11/20/22 11:33 AM Result Value Ref Range Total Protein 7.0 6.0 - 8.0 g/dL Albumin 3.2 3.2 - 5.2 g/dL Total Bilirubin 0.3 0.0 - 1.3 mg/dL Bilirubin, Direct <0.1 0.0 - 0.4 mg/dL Alkaline Phosphatase 82 40 - 140 U/L AST 14 0 - 45 U/L ALT 23 14 - 65 U/L TSH with Reflex Free T4 Collection Time: 11/20/22 11:33 AM Result Value Ref Range TSH <0.01 (L) 0.27 - 4.20 mcIU/mL Troponin Collection Time: 11/20/22 11:33 AM Result Value Ref Range Troponin I 12 <=59 ng/L Troponin I Interpretation Normal HCG (QUANTITATIVE) Collection Time: 11/20/22 11:33 AM Result Value Ref Range hCG Quant <1 0 - 5 mIU/mL CBC Auto Differential Collection Time: 11/20/22 11:33 AM Result Value Ref Range WBC 7.59 4.50 - 11.00 K/mcL RBC 3.02 (L) 4.00 - 5.20 M/mcL Hemoglobin 5.5 (CL) 12.0 - 16.0 g/dL Hematocrit 20.6 (L) 36.0 - 46.0 % MCV 68.2 (L) 80.0 - 100.0 fL MCH 18.2 (L) 26.0 - 34.0 pg MCHC 26.7 (L) 31.0 - 37.0 g/dL Platelets 449 (H) 150 - 400 K/mcL RDW - CV 18.6 (H) 11.6 - 14.8 % MPV 8.8 (L) 9.4 - 12.4 fL Neutrophils 58.3 % Lymphocytes 31.0 % Monocytes 7.8 % Eosinophils 1.4 % Basophils 0.8 % IG Percent 0.70 % Neutrophils Abs 4.43 1.70 - 7.00 K/mcL Lymphocytes Abs 2.35 0.90 - 4.00 K/mcL Monocytes Abs 0.59 0.30 - 0.90 K/mcL Eosinophils Abs 0.11 0.00 - 0.50 K/mcL Basophils Abs 0.06 0.00 - 0.30 K/mcL IG Absolute 0.05 0.00 - 0.30 K/mcL Nucleated RBC 0.0 % Nucleated RBC Abs 0.00 0.00 - 0.00 K/mcL CBC and Diff Morphology Collection Time: 11/20/22 11:33 AM Result Value Ref Range Polychromia Few Target Cells Few RBC Morphology See Comment T4, Free Collection Time: 11/20/22 11:33 AM Result Value Ref Range T4, Free 1.3 0.7 - 1.7 ng/dL Alcohol, Medical Collection Time: 11/20/22 11:38 AM Result Value Ref Range Alcohol (Medical) <10.00 <10.00 mg/dL COVID-19/Influenza A,B Molecular Collection Time: 11/20/22 11:38 AM Specimen: Nasopharyngeal; Swab Result Value Ref Range SARS-CoV-2 Not Detected Not Detected Influenza A Not Detected Not Detected Influenza B Not Detected Not Detected ABORH Verification Collection Time: 11/20/22 11:38 AM Result Value Ref Range ABORh A Positive Verification of ABORH ABO/Rh Verification Type and Screen Collection Time: 11/20/22 12:21 PM Result Value Ref Range ABORh A Positive Antibody Screen Negative Specimen Expires 11/23/2022 23:59 EST Urinalysis Collection Time: 11/20/22 1:02 PM Result Value Ref Range Color, Urine Yellow Colorless, Yellow Clarity, Urine Hazy (A) Clear Specific [place] 1.037 (H) 1.005 - 1.025 pH, Urine 7.0 5.0 - 7.0 Protein, Urine Negative Negative mg/dL Glucose, Urine Negative Negative mg/dL Ketones, Urine Negative Negative mg/dL Bilirubin, Urine Negative Negative Urobilinogen, Urine <2.0 <2.0 mg/dL Blood, Urine Negative Negative Nitrite, Urine Negative Negative Leukocyte Esterase, Urine Small (A) Negative WBCs, Urine 1 0 - 5 /hpf RBCs, Urine 1 0 - 3 /hpf Bacteria, Urine Rare (A) None Seen /hpf Squamous Epithelial 10 (H) 0 - 4 /hpf Mucus, Urine Rare None Seen, Rare /lpf Urine Drug Screen Collection Time: 11/20/22 1:02 PM Result Value Ref Range Amphetamine Screen, Urine Presumptive Positive (A) None Detected Barbiturate Screen, Urine None Detected None Detected Benzodiazepine Screen, Urine None Detected None Detected Cannabinoid Screen, Urine Presumptive Positive (A) None Detected Cocaine, Screen Urine None Detected None Detected Methadone Screen, Urine None Detected None Detected Opiate Screen, Urine None Detected None Detected Oxycodone Screen, Urine None Detected None Detected Buprenorphine, Ur None Detected None Detected Fentanyl, Ur Presumptive Positive (A) None Detected Iron Study with Ferritin Collection Time: 11/20/22 2:55 PM Result Value Ref Range Iron 12 (L) 30 - 160 mcg/dL Ferritin 3 (L) 13 - 150 ng/mL TIBC 451 (H) 225 - 430 mcg/dL Iron Saturation 3 (L) 20 - 50 % Reticulocyte Collection Time: 11/20/22 2:55 PM Result Value Ref Range Retic Percent 1.8 % Retic Absolute 0.052 0.025 - 0.070 M/mcL Imm Retic Fract 30.8 (H) 2.3 - 15.9 % Retic Hgb Equivalent 14.7 (L) 27.7 - 38.2 PG B12/Folate Collection Time: 11/20/22 2:55 PM Result Value Ref Range B12 333 193 - 986 pg/mL Folate 11.4 3.1 - 17.5 ng/mL HIV Antibody (HIV1/HIV2) Collection Time: 11/20/22 2:55 PM Result Value Ref Range HIV 1-2 Screen Negative Negative Hepatitis C Antibody Collection Time: 11/20/22 2:55 PM Result Value Ref Range Hepatitis C Ab Positive (A) Negative Hepatitis B Surface Antigen Collection Time: 11/20/22 2:55 PM Result Value Ref Range Hepatitis B Surface Ag Negative Negative Hepatitis Be Antigen Collection Time: 11/20/22 2:55 PM Result Value Ref Range Hepatitis Be Antigen Negative Negative Hepatitis B Core Antibody, Total Collection Time: 11/20/22 2:55 PM Result Value Ref Range Hep B Core Total Ab Positive (A) Negative Hepatitis B Surface Antibody Collection Time: 11/20/22 2:55 PM Result Value Ref Range Hep B S Ab Positive (A) Negative T3, Free Collection Time: 11/20/22 2:55 PM Result Value Ref Range T3, Free 5.4 (H) 2.0 - 4.4 pg/mL Prolactin Collection Time: 11/20/22 2:55 PM Result Value Ref Range Prolactin 22.7 1.4 - 24.2 ng/mL Prepare RBC: 2 Units Collection Time: 11/20/22 5:24 PM Result Value Ref Range Product ID Red Blood Cells Blood Type Code 6200 Product Code [id number] Status Info Issued Unit Number [id number] Blood Type A Pos Cross Match Compatible Product ID Red Blood Cells Blood Type Code 6200 Product Code [id number] Status Info Issued Unit Number [id number] Blood Type A Pos Cross Match Compatible CBC Collection Time: 11/20/22 9:57 PM Result Value Ref Range WBC 10.20 4.50 - 11.00 K/mcL RBC 3.78 (L) 4.00 - 5.20 M/mcL Hemoglobin 7.8 (L) 12.0 - 16.0 g/dL Hematocrit 28.0 (L) 36.0 - 46.0 % MCV 74.1 (L) 80.0 - 100.0 fL MCH 20.6 (L) 26.0 - 34.0 pg MCHC 27.9 (L) 31.0 - 37.0 g/dL Platelets 409 (H) 150 - 400 K/mcL RDW - CV 21.1 (H) 11.6 - 14.8 % MPV 8.8 (L) 9.4 - 12.4 fL Nucleated RBC 0.2 % Nucleated RBC Abs 0.02 (H) 0.00 - 0.00 K/mcL Basic Metabolic Panel Collection Time: 11/21/22 6:06 AM Result Value Ref Range Sodium 141 135 - 145 mmol/L Potassium 3.9 3.5 - 5.1 mmol/L Chloride 112 (H) 98 - 108 mmol/L Bicarbonate 23 21 - 32 mmol/L Anion Gap 10 10 - 20 mmol/L Glucose 83 65 - 99 mg/dL BUN 7 (L) 8 - 25 mg/dL Creatinine 0.34 (L) 0.40 - 1.10 mg/dL eGFR 140 >=60 mL/min/1.73 m2 BUN/Creatinine Ratio 20.6 (H) 10.0 - 20.0 Calcium 8.9 8.4 - 10.2 mg/dL Magnesium Collection Time: 11/21/22 6:06 AM Result Value Ref Range Magnesium 2.1 1.6 - 2.4 mg/dL Phosphorus Collection Time: 11/21/22 6:06 AM Result Value Ref Range Phosphorus 3.9 2.7 - 4.5 mg/dL CBC Collection Time: 11/21/22 6:06 AM Result Value Ref Range WBC 5.43 4.50 - 11.00 K/mcL RBC 3.39 (L) 4.00 - 5.20 M/mcL Hemoglobin 7.2 (L) 12.0 - 16.0 g/dL Hematocrit 24.2 (L) 36.0 - 46.0 % MCV 71.4 (L) 80.0 - 100.0 fL MCH 21.2 (L) 26.0 - 34.0 pg MCHC 29.8 (L) 31.0 - 37.0 g/dL Platelets 345 150 - 400 K/mcL RDW - CV 20.3 (H) 11.6 - 14.8 % MPV 8.5 (L) 9.4 - 12.4 fL Nucleated RBC 0.0 % Nucleated RBC Abs 0.00 0.00 - 0.00 K/mcL Lab Results Component Value Date AMPHUR Presumptive Positive (A) 11/20/2022 BARBUR None Detected 11/20/2022 BENZUR None Detected 11/20/2022 THCUR Presumptive Positive (A) 11/20/2022 COCAINESUR None Detected 11/20/2022 URMETH None Detected 11/20/2022 OPIATEUR None Detected 11/20/2022 UROXYCODONE None Detected 11/20/2022 FENTANYLUR Presumptive Positive (A) 11/20/2022 BUPUR None Detected 11/20/2022 CT Abdomen Pelvis With IV Contrast Only Final Result Evaluation is somewhat degraded by motion. Particularly in the upper abdomen. No acute findings to account for patient's symptoms. Mild diffuse colonic stool burden without evidence of bowel obstruction. Grossly, no bowel mass or inflammatory changes. Recommend colonoscopy/endoscopy if concern for GI bleed. No obstructive uropathy. Left ovarian cyst, 3.[address]. Indeterminate right adrenal nodule measuring up to 1.6 cm. Recommend nonemergent enhanced CT with adrenal mass protocol. Prior appendectomy. / Workstation ID: [id number] XR Chest 1 View Final Result No acute heart or lung disease identified. Workstation ID: [id number] Denis Ortega MD This note was dictated using voice-recognition software for expedited communication. Please kindly excuse any typos or mis-recognized words. Associated Order(s): IP CONSULT TO GASTROENTEROLOGY; IP CONSULT TO GASTROENTEROLOGY Gastroenterology Inpatient Consult 11/20/2022 Sonia Hull [facility] Patient: Myles Venegas Date of : 1990 (32 y.o.) Referring Provider: Refer to consult order in electronic medical record PCP: Jaiden Mcgill MD SUBJECTIVE: Chief Complaint/Reason for Consult: anemia ASSESSMENT/PLAN: 32 y.o. female with history of polysubstance abuse presenting with complaints of weakness and dizziness. Patient appears to be a poor historian but says for the last couple weeks she has been fatigued, weak, and dizzy, states she has been tired and sleeping a lot. Hemoglobin 5.5 on labs. GI consulted for concerns of GI bleed. Anemia- Normotensive, tachycardic, afebrile Hemoglobin 5.5, microcytic--receiving 2 units blood transfusion Received 1 L fluid bolus H&H every 6, recommend transfuse for hemoglobin 7 or less Continue Protonix drip Intermittent dark stools over the last ~1 month Weakness, dizziness, fatigue for about 2 weeks progressively worsening Denies hemoptysis, nosebleeds, bleeding wounds, bloody emesis, bright red blood per rectum Not on any blood thinners Occasionally taken NSAIDs 4-5 tablets at a time maybe once a week to once every couple weeks or so Patient ate scrambled eggs this morning at 8:30 AM--n.p.o. since Guaiac negative in ED--SUNNY by this provider unable to palpate any masses, no stool or blood on exam glove UDS positive for fentanyl, methamphetamines, and cannabinoids Has never had EGD or colonoscopy Recommend anemia work-up. Will order stool occult blood test. Continue PPI and keep NPO, consider maintenance IV fluids after transfusion. Serial H&H transfuse for hemoglobin less than 7. Patient being admitted for acute blood loss anemia under hospitalist service. Will discuss with Dr Bach general surgeon on-call covering GI services. Addendum @ 1644: Discussed with Dr bach, reaganay for clears today, continue to trend H&H and PPI History of Present Illness: Myles Venegas is a 32 y.o. female with history of polysubstance abuse presenting with complaints of weakness and dizziness. Patient appears to be a poor historian but says for the last couple weeks she has been fatigued, weak, and dizzy, states she has been tired and sleeping a lot. Hemoglobin 5.5 on labs--no prior lab work to compare for baseline. CT abdomen and pelvis with IV contrast completed with no acute findings, mild diffuse colonic stool burden without evidence of bowel obstruction, grossly no bowel mass or inflammatory changes--recommend endoscopy if concern for GI bleeding. She denies hemoptysis, epistaxis, hematemesis, bright red blood per rectum or black tarry stools. Denies heavy menses, has IUD and has not had a menstrual cycle in the last couple years. Stool guaiac negative by ED provider. Last bowel movement yesterday brown in color, notes occasionally dark stools off and on and bowels alternate from loose to formed, but typically stool various shades of brown. She says she has been eating a lot of fast food and attributes it to that. SUNNY by this provider with no stool or blood on exam glove, did not palpate any obvious masses. Denies any dysphagia, heartburn symptoms, nausea or vomiting, abdominal pain, bloating. Occasionally takes ibuprofen and says she takes 4 to 5 tablets at a time maybe once a week or less depending on aches or pains. She is a current 1 pack/day smoker and denies alcohol consumption. Denies any current drug use and says past history of heroin and methamphetamines last used in 2017. Urine drug screen was positive for fentanyl, methamphetamines, and cannabinoids. She thinks family history of peptic ulcer disease in her mother, but denies any known GI cancers. Maternal grandmother with lung cancer and sister with lymphoma. Denies family history of inflammatory bowel disease. She has never had an EGD or colonoscopy. Pending Lab and Radiology Results Order Current Status B12/Folate In process Iron Study with Ferritin In process CT Abdomen Pelvis With IV Contrast Only Preliminary result Interpretation of Testing: I personally reviewed the labs, notes, imaging, procedures Review of Systems: All other systems reviewed and negative other than HPI Past Medical History: Diagnosis Date Acute blood loss anemia 11/20/2022 Substance abuse (HCC) Past Surgical History: Procedure Laterality Date APPENDECTOMY Family History Problem Relation Age of Onset Depression Mother Diabetes Mother Hypertension Mother Hyperlipidemia Father Social History Tobacco Use Smoking Status Every Day Packs/day: 1.00 Years: 10.00 Pack years: 10.00 Types: Cigarettes Smokeless Tobacco Never Vaping Use Vaping Status Never Used Additional History Comments: None Allergies: Patient has no known allergies. Current HOME Medications: Outpatient Medications Marked as Taking for the 11/20/22 encounter (Hospital Encounter): levonorgestreL (MIRENA) 20 mcg/24 hours (7 yrs) 52 mg IUD, 1 (one) each by Intrauterine route See Admin Instructions . [DISCONTINUED] ibuprofen (ADVIL,MOTRIN) 200 MG tablet, Take 5 (five) tablets (1,000 mg total) by mouth as needed for pain . Current HOSPITAL Medications: pantoprazole (PROTONIX) 80 mg in sodium chloride 0.9 % (NS) 100 mL infusion, 8 mg/hr, Intravenous, Continuous OBJECTIVE: Physical Examination: BP 129/78 Pulse (!) 107 Temp 98.7 F (37.1 C) Resp (!) 22 Ht 5' 6 Wt 74.4 kg (164 lb) SpO2 99% BMI 26.47 kg/m General Appearance: Alert, pale appearing, no acute distress Neck: Supple, trachea midline. Cardiovascular: Regular rate and rhythm Respiratory: Respirations unlabored, Lungs clear to auscultation, no wheezes, crackles or rhonchi. Abdomen: Soft, non distended, normoactive bowel sounds, non- tender to palpation, no organomegaly or masses. Extremities: No clubbing, cyanosis or edema. Musculoskeletal: No joint deformity, swelling or tenderness Neurological: Alert and oriented, no focal deficits, grossly normal motor and sensory Skin: Normal color and turgor, no jaundice or rashes. Psych: Normal mood and affect. Laboratory and Additional Data Reviewed: Reviewed 11/20/22 3:36 PM: Laboratory, Radiology, Medications, and Transcriptions Please note: Portions of this chart may have been created with [employer] voice recognition software. Occasional wrong-word or sound-like substitutions may have occurred due to inherent limitations of the voice recognition software. Please read the chart carefully and recognize, using context, where the substitutions have occurred. documented in this encounter [facility] 11-21-2022 Hospital Discharge instructions Sonia Hull CNP - 11/21/2022 12:53 PM EDT Do not take any NSAIDs, such as aspirin, aleve, motrin, ibuprofen, advil, etc. May take tylenol as needed for aches or pains. documented in this encounter [facility] 11-21-2022 Consult note Formatting of th is note is different from the original. ADDICTION MEDICINE CONSULT NOTE Patient Name: Myles Venegas Admit Date: [id number] MR #: [id number] : 1990 Physicians: Jaiden Mcgill MD (Family); No ref. provider found (referring) Principal Problem: Acute blood loss anemia Assessment and Plan: METH FENTANYL THC USE. Patient states just one time recent meth and did not know fentanyl. Denies cravings or withdrawal. Daily THC to relax. Will add NAC 1200 BID and see how she does. Wants to get back with [address] Mcgill for medical and denies need for MAT or AOD at this time. TSH < 0.01. Common with Meth use and usually goes up within a few days with free T4 and T3 usually normal. T3 was up and repeating today and may need Endocrine input. Eventually will need to get back to [facility] with having abnormal PAP / HPV. If she does show signs of withdrawal or feels she does have an addiction needing further follow up we can be re consulted. Adding hydroxyzine for anxiety until thyroid follow up Assessment Detail: The total time spent for this visit was 60 to 65 minutes. Greater than 50% of the time was spent in counseling and coordination of care. Reason for Consult: Management of substance use disorder Counseling services. Polysubstance use History of Present Illness: Myles Venegas is a 32 y.o. y/o female presenting from with c/o shortness of breath Chief Complaint Patient presents with Dizziness Patient in 3700. Lives with 6 to 8 roommates - all of whom are sober. Reports had been addicted to opiates thru 2015 and stopped cold turkey after an OD. Picked up meth for a couple years and stopped a year ago again cold turkey Does smoke nicotine and THC (for her anxiety) daily. States went with the wrong friends Thursday and Thursday and ate? What she thought was meth but did feel a little funny. Did not knowingly use fentanyl Adamant no IV for a couple years Past Medical History: Diagnosis Date Acute blood loss anemia 11/20/2022 Substance abuse (HCC) Past Surgical History: Procedure Laterality Date APPENDECTOMY Family History Problem Relation Age of Onset Depression Mother Diabetes Mother Hypertension Mother Hyperlipidemia Father Social History Socioeconomic History Marital status: Unknown Tobacco Use Smoking status: Every Day Packs/day: 1.00 Years: 10.00 Pack years: 10.00 Types: Cigarettes Smokeless tobacco: Never Vaping Use Vaping Use: Never used Substance and Sexual Activity Alcohol use: No Drug use: No Sexual activity: Yes Partners: Male control/protection: I.U.D. AOD History: No problems updated. Substance(s) of Choice THC remote heroin and meth Treatment history: none Longest period of sobriety: 1 year OD history: yes Typical withdrawal symptoms: been a long time History of precipitated withdrawal: no Seizure history: no Psychiatric History: Diagnoses: no Provider: no SI or SA: no Previous Medications Medication Sig levonorgestreL (MIRENA) 20 mcg/24 hours (7 yrs) 52 mg IUD 1 (one) each by Intrauterine route See Admin Instructions . No Known Allergies Review of Systems All other systems reviewed and are negative. Patient Vitals for the past 24 hrs: BP Temp Temp src Pulse Resp SpO2 Height Weight 11/21/22 0754 131/79 -- -- (!) 106 (!) 23 100 % -- -- 11/21/22 0753 -- 98.5 F (36.9 C) Oral -- -- -- -- -- 11/21/22 0400 132/83 97.7 F (36.5 C) Infrared 99 16 100 % -- -- 11/20/22 2100 (!) 144/85 97.6 F (36.4 C) Oral (!) 106 16 100 % -- -- 11/20/22 1918 125/79 97.4 F (36.3 C) Oral (!) 112 12 100 % -- -- 11/20/22 1751 128/81 97.7 F (36.5 C) Oral (!) 107 18 -- -- -- 11/20/22 1735 (!) 141/81 98.7 F (37.1 C) -- (!) 112 (!) 20 -- -- -- 11/20/22 1600 -- -- -- -- 12 -- -- -- 11/20/22 1530 129/78 -- -- (!) 107 (!) 22 99 % -- -- 11/20/22 1515 -- -- -- (!) 109 (!) 20 99 % -- -- 11/20/22 1430 129/73 -- -- (!) 107 13 99 % -- -- 11/20/22 1345 118/70 98.7 F (37.1 C) -- (!) 108 18 100 % -- -- 11/20/22 1327 (!) 111/91 99.2 F (37.3 C) -- (!) 109 18 -- -- -- 11/20/22 1245 125/79 -- -- (!) 116 18 100 % -- -- 11/20/22 1114 136/83 97.9 F (36.6 C) Oral (!) 119 17 100 % 5' 6 74.4 kg (164 lb) Physical Exam Constitutional: Appearance: She is well-developed. Comments: Constant motion on stretcher. Very anxious and says this is her norm thinner HENT: Head: Normocephalic. Eyes: General: No scleral icterus. Pupils: Pupils are equal, round, and reactive to light. Neck: Comments: No asymetry or tenderness Cardiovascular: Rate and Rhythm: Tachycardia present. Musculoskeletal: General: Normal range of motion. Cervical back: Normal range of motion and neck supple. Pulmonary: Effort: Pulmonary effort is normal. Skin: General: Skin is warm and dry. Comments: No obvious pick albarran Neurological: General: No focal deficit present. Mental Status: She is alert and oriented to person, place, and time. Psychiatric: Mood and Affect: Mood normal. Behavior: Behavior normal. Allergy Information: I have reviewed the patient's allergies. Patient has no known allergies. Home Medications: Outpatient Medications as of 11/21/2022 Medication Sig levonorgestreL (MIRENA) 20 mcg/24 hours (7 yrs) 52 mg IUD 1 (one) each by Intrauterine route See Admin Instructions . Laboratory & Radiographic Imaging (if done): Recent Results (from the past 24 hour(s)) EKG 12-lead Collection Time: 11/20/22 11:19 AM Result Value Ref Range Ventricular Rate 111 BPM Atrial Rate 111 BPM P-R Interval 124 ms QRS Duration 92 ms Q-T Interval 330 ms QTC Calculation (Bezet) 448 ms P [place] 28 degrees R [place] 46 degrees T [place] 21 degrees Chem 7 Collection Time: 11/20/22 11:33 AM Result Value Ref Range Sodium 139 135 - 145 mmol/L Potassium 4.4 3.5 - 5.1 mmol/L Chloride 109 (H) 98 - 108 mmol/L Bicarbonate 24 21 - 32 mmol/L Anion Gap 10 10 - 20 mmol/L Glucose 97 65 - 99 mg/dL BUN 11 8 - 25 mg/dL Creatinine 0.49 0.40 - 1.10 mg/dL eGFR 129 >=60 mL/min/1.73 m2 BUN/Creatinine Ratio 22.4 (H) 10.0 - 20.0 D-Dimer, Quantitative Collection Time: 11/20/22 11:33 AM Result Value Ref Range D-Dimer 0.36 0.27 - 0.49 mcg/mL FEU Hepatic Function Panel (LFT) Collection Time: 11/20/22 11:33 AM Result Value Ref Range Total Protein 7.0 6.0 - 8.0 g/dL Albumin 3.2 3.2 - 5.2 g/dL Total Bilirubin 0.3 0.0 - 1.3 mg/dL Bilirubin, Direct <0.1 0.0 - 0.4 mg/dL Alkaline Phosphatase 82 40 - 140 U/L AST 14 0 - 45 U/L ALT 23 14 - 65 U/L TSH with Reflex Free T4 Collection Time: 11/20/22 11:33 AM Result Value Ref Range TSH <0.01 (L) 0.27 - 4.20 mcIU/mL Troponin Collection Time: 11/20/22 11:33 AM Result Value Ref Range Troponin I 12 <=59 ng/L Troponin I Interpretation Normal HCG (QUANTITATIVE) Collection Time: 11/20/22 11:33 AM Result Value Ref Range hCG Quant <1 0 - 5 mIU/mL CBC Auto Differential Collection Time: 11/20/22 11:33 AM Result Value Ref Range WBC 7.59 4.50 - 11.00 K/mcL RBC 3.02 (L) 4.00 - 5.20 M/mcL Hemoglobin 5.5 (CL) 12.0 - 16.0 g/dL Hematocrit 20.6 (L) 36.0 - 46.0 % MCV 68.2 (L) 80.0 - 100.0 fL MCH 18.2 (L) 26.0 - 34.0 pg MCHC 26.7 (L) 31.0 - 37.0 g/dL Platelets 449 (H) 150 - 400 K/mcL RDW - CV 18.6 (H) 11.6 - 14.8 % MPV 8.8 (L) 9.4 - 12.4 fL Neutrophils 58.3 % Lymphocytes 31.0 % Monocytes 7.8 % Eosinophils 1.4 % Basophils 0.8 % IG Percent 0.70 % Neutrophils Abs 4.43 1.70 - 7.00 K/mcL Lymphocytes Abs 2.35 0.90 - 4.00 K/mcL Monocytes Abs 0.59 0.30 - 0.90 K/mcL Eosinophils Abs 0.11 0.00 - 0.50 K/mcL Basophils Abs 0.06 0.00 - 0.30 K/mcL IG Absolute 0.05 0.00 - 0.30 K/mcL Nucleated RBC 0.0 % Nucleated RBC Abs 0.00 0.00 - 0.00 K/mcL CBC and Diff Morphology Collection Time: 11/20/22 11:33 AM Result Value Ref Range Polychromia Few Target Cells Few RBC Morphology See Comment T4, Free Collection Time: 11/20/22 11:33 AM Result Value Ref Range T4, Free 1.3 0.7 - 1.7 ng/dL Alcohol, Medical Collection Time: 11/20/22 11:38 AM Result Value Ref Range Alcohol (Medical) <10.00 <10.00 mg/dL COVID-19/Influenza A,B Molecular Collection Time: 11/20/22 11:38 AM Specimen: Nasopharyngeal; Swab Result Value Ref Range SARS-CoV-2 Not Detected Not Detected Influenza A Not Detected Not Detected Influenza B Not Detected Not Detected ABORH Verification Collection Time: 11/20/22 11:38 AM Result Value Ref Range ABORh A Positive Verification of ABORH ABO/Rh Verification Type and Screen Collection Time: 11/20/22 12:21 PM Result Value Ref Range ABORh A Positive Antibody Screen Negative Specimen Expires 11/23/2022 23:59 EST Urinalysis Collection Time: 11/20/22 1:02 PM Result Value Ref Range Color, Urine Yellow Colorless, Yellow Clarity, Urine Hazy (A) Clear Specific [place] 1.037 (H) 1.005 - 1.025 pH, Urine 7.0 5.0 - 7.0 Protein, Urine Negative Negative mg/dL Glucose, Urine Negative Negative mg/dL Ketones, Urine Negative Negative mg/dL Bilirubin, Urine Negative Negative Urobilinogen, Urine <2.0 <2.0 mg/dL Blood, Urine Negative Negative Nitrite, Urine Negative Negative Leukocyte Esterase, Urine Small (A) Negative WBCs, Urine 1 0 - 5 /hpf RBCs, Urine 1 0 - 3 /hpf Bacteria, Urine Rare (A) None Seen /hpf Squamous Epithelial 10 (H) 0 - 4 /hpf Mucus, Urine Rare None Seen, Rare /lpf Urine Drug Screen Collection Time: 11/20/22 1:02 PM Result Value Ref Range Amphetamine Screen, Urine Presumptive Positive (A) None Detected Barbiturate Screen, Urine None Detected None Detected Benzodiazepine Screen, Urine None Detected None Detected Cannabinoid Screen, Urine Presumptive Positive (A) None Detected Cocaine, Screen Urine None Detected None Detected Methadone Screen, Urine None Detected None Detected Opiate Screen, Urine None Detected None Detected Oxycodone Screen, Urine None Detected None Detected Buprenorphine, Ur None Detected None Detected Fentanyl, Ur Presumptive Positive (A) None Detected Iron Study with Ferritin Collection Time: 11/20/22 2:55 PM Result Value Ref Range Iron 12 (L) 30 - 160 mcg/dL Ferritin 3 (L) 13 - 150 ng/mL TIBC 451 (H) 225 - 430 mcg/dL Iron Saturation 3 (L) 20 - 50 % Reticulocyte Collection Time: 11/20/22 2:55 PM Result Value Ref Range Retic Percent 1.8 % Retic Absolute 0.052 0.025 - 0.070 M/mcL Imm Retic Fract 30.8 (H) 2.3 - 15.9 % Retic Hgb Equivalent 14.7 (L) 27.7 - 38.2 PG B12/Folate Collection Time: 11/20/22 2:55 PM Result Value Ref Range B12 333 193 - 986 pg/mL Folate 11.4 3.1 - 17.5 ng/mL HIV Antibody (HIV1/HIV2) Collection Time: 11/20/22 2:55 PM Result Value Ref Range HIV 1-2 Screen Negative Negative Hepatitis C Antibody Collection Time: 11/20/22 2:55 PM Result Value Ref Range Hepatitis C Ab Positive (A) Negative Hepatitis B Surface Antigen Collection Time: 11/20/22 2:55 PM Result Value Ref Range Hepatitis B Surface Ag Negative Negative Hepatitis Be Antigen Collection Time: 11/20/22 2:55 PM Result Value Ref Range Hepatitis Be Antigen Negative Negative Hepatitis B Core Antibody, Total Collection Time: 11/20/22 2:55 PM Result Value Ref Range Hep B Core Total Ab Positive (A) Negative Hepatitis B Surface Antibody Collection Time: 11/20/22 2:55 PM Result Value Ref Range Hep B S Ab Positive (A) Negative T3, Free Collection Time: 11/20/22 2:55 PM Result Value Ref Range T3, Free 5.4 (H) 2.0 - 4.4 pg/mL Prolactin Collection Time: 11/20/22 2:55 PM Result Value Ref Range Prolactin 22.7 1.4 - 24.2 ng/mL Prepare RBC: 2 Units Collection Time: 11/20/22 5:24 PM Result Value Ref Range Product ID Red Blood Cells Blood Type Code 6200 Product Code [id number] Status Info Issued Unit Number [id number] Blood Type A Pos Cross Match Compatible Product ID Red Blood Cells Blood Type Code 6200 Product Code [id number] Status Info Issued Unit Number [id number] Blood Type A Pos Cross Match Compatible CBC Collection Time: 11/20/22 9:57 PM Result Value Ref Range WBC 10.20 4.50 - 11.00 K/mcL RBC 3.78 (L) 4.00 - 5.20 M/mcL Hemoglobin 7.8 (L) 12.0 - 16.0 g/dL Hematocrit 28.0 (L) 36.0 - 46.0 % MCV 74.1 (L) 80.0 - 100.0 fL MCH 20.6 (L) 26.0 - 34.0 pg MCHC 27.9 (L) 31.0 - 37.0 g/dL Platelets 409 (H) 150 - 400 K/mcL RDW - CV 21.1 (H) 11.6 - 14.8 % MPV 8.8 (L) 9.4 - 12.4 fL Nucleated RBC 0.2 % Nucleated RBC Abs 0.02 (H) 0.00 - 0.00 K/mcL Basic Metabolic Panel Collection Time: 11/21/22 6:06 AM Result Value Ref Range Sodium 141 135 - 145 mmol/L Potassium 3.9 3.5 - 5.1 mmol/L Chloride 112 (H) 98 - 108 mmol/L Bicarbonate 23 21 - 32 mmol/L Anion Gap 10 10 - 20 mmol/L Glucose 83 65 - 99 mg/dL BUN 7 (L) 8 - 25 mg/dL Creatinine 0.34 (L) 0.40 - 1.10 mg/dL eGFR 140 >=60 mL/min/1.73 m2 BUN/Creatinine Ratio 20.6 (H) 10.0 - 20.0 Calcium 8.9 8.4 - 10.2 mg/dL Magnesium Collection Time: 11/21/22 6:06 AM Result Value Ref Range Magnesium 2.1 1.6 - 2.4 mg/dL Phosphorus Collection Time: 11/21/22 6:06 AM Result Value Ref Range Phosphorus 3.9 2.7 - 4.5 mg/dL CBC Collection Time: 11/21/22 6:06 AM Result Value Ref Range WBC 5.43 4.50 - 11.00 K/mcL RBC 3.39 (L) 4.00 - 5.20 M/mcL Hemoglobin 7.2 (L) 12.0 - 16.0 g/dL Hematocrit 24.2 (L) 36.0 - 46.0 % MCV 71.4 (L) 80.0 - 100.0 fL MCH 21.2 (L) 26.0 - 34.0 pg MCHC 29.8 (L) 31.0 - 37.0 g/dL Platelets 345 150 - 400 K/mcL RDW - CV 20.3 (H) 11.6 - 14.8 % MPV 8.5 (L) 9.4 - 12.4 fL Nucleated RBC 0.0 % Nucleated RBC Abs 0.00 0.00 - 0.00 K/mcL Lab Results Component Value Date AMPHUR Presumptive Positive (A) 11/20/2022 BARBUR None Detected 11/20/2022 BENZUR None Detected 11/20/2022 THCUR Presumptive Positive (A) 11/20/2022 COCAINESUR None Detected 11/20/2022 URMETH None Detected 11/20/2022 OPIATEUR None Detected 11/20/2022 UROXYCODONE None Detected 11/20/2022 FENTANYLUR Presumptive Positive (A) 11/20/2022 BUPUR None Detected 11/20/2022 CT Abdomen Pelvis With IV Contrast Only Final Result Evaluation is somewhat degraded by motion. Particularly in the upper abdomen. No acute findings to account for patient's symptoms. Mild diffuse colonic stool burden without evidence of bowel obstruction. Grossly, no bowel mass or inflammatory changes. Recommend colonoscopy/endoscopy if concern for GI bleed. No obstructive uropathy. Left ovarian cyst, 3.[address] Indeterminate right adrenal nodule measuring up to 1.6 cm. Recommend nonemergent enhanced CT with adrenal mass protocol. Prior appendectomy. / Workstation ID: [id number] XR Chest 1 View Final Result No acute heart or lung disease identified. Workstation ID: [id number] Denis Ortega MD This note was dictated using voice-recognition software for expedited communication. Please kindly excuse any typos or mis-recognized words. T [facility] 11-21-2022 Note Formatting of this n ote might be different from the original. Problem: Pain Goal: Manage acute pain Outcome: Met Acute pain managed this shift T [facility] 11-20-2022 Note Evaluation is somewhat degraded by motion. Particularly in the upper abdomen. No acute findings to account for patient's symptoms. Mild diffuse colonic stool burden without evidence of bowel obstruction. Grossly, no bowel mass or inflammatory changes. Recommend colonoscopy/endoscopy if concern for GI bleed. No obstructive uropathy. Left ovarian cyst, 3.[address] Indeterminate right adrenal nodule measuring up to 1.6 cm. Recommend nonemergent enhanced CT with adrenal mass protocol. Prior appendectomy. / Workstation ID: [id number] [facility] 11-20-2022 Note Formatting of this n ote might be different from the original. Problem: Actual or potential alteration in health Goal: Absence of healthcare acquired conditions 11/20/2022 174 by Sylvia Lawson RN Outcome: Partially Met 11/20/2022 1606 by Sylvia Lawson RN Outcome: Partially Met Goal: Knowledge of Interdisciplinary Plan of Care 11/20/2022 174 by Sylvia Lawson RN Outcome: Partially Met 11/20/2022 1606 by Sylvia Lwason RN Outcome: Partially Met Goal: Knowledge of Enviroment 11/20/[id number] by Sylvia Lawson RN Outcome: Partially Met 11/20/2022 1606 by Sylvia Lawson RN Outcome: Partially Met [facility] 11-20-2022 Note Formatting of this n ote might be different from the original. Problem: Actual or potential alteration in health Goal: Absence of healthcare acquired conditions Outcome: Partially Met Goal: Knowledge of Interdisciplinary Plan of Care Outcome: Partially Met Goal: Knowledge of Enviroment Outcome: Partially Met T [facility] 11-20-2022 Consult note Associated Order (s): IP CONSULT TO GASTROENTEROLOGY; IP CONSULT TO GASTROENTEROLOGY Gastroenterology Inpatient Consult 11/20/2022 Sonia Hull CNP [facility] Patient: Myles Venegas Date of : 1990 (32 y.o.) Referring Provider: Refer to consult order in electronic medical record PCP: Jaiden Mcgill MD SUBJECTIVE: Chief Complaint/Reason for Consult: anemia ASSESSMENT/PLAN: 32 y.o. female with history of polysubstance abuse presenting with complaints of weakness and dizziness. Patient appears to be a poor historian but says for the last couple weeks she has been fatigued, weak, and dizzy, states she has been tired and sleeping a lot. Hemoglobin 5.5 on labs. GI consulted for concerns of GI bleed. Anemia- Normotensive, tachycardic, afebrile Hemoglobin 5.5, microcytic--receiving 2 units blood transfusion Received 1 L fluid bolus H&H every 6, recommend transfuse for hemoglobin 7 or less Continue Protonix drip Intermittent dark stools over the last ~1 month Weakness, dizziness, fatigue for about 2 weeks progressively worsening Denies hemoptysis, nosebleeds, bleeding wounds, bloody emesis, bright red blood per rectum Not on any blood thinners Occasionally taken NSAIDs 4-5 tablets at a time maybe once a week to once every couple weeks or so Patient ate scrambled eggs this morning at 8:30 AM--n.p.o. since Guaiac negative in ED--SUNNY by this provider unable to palpate any masses, no stool or blood on exam glove UDS positive for fentanyl, methamphetamines, and cannabinoids Has never had EGD or colonoscopy Recommend anemia work-up. Will order stool occult blood test. Continue PPI and keep NPO, consider maintenance IV fluids after transfusion. Serial H&H transfuse for hemoglobin less than 7. Patient being admitted for acute blood loss anemia under hospitalist service. Will discuss with Dr Bach general surgeon on-call covering GI services. Addendum @ 5010: Discussed with Dr bach, okay for clears today, continue to trend H&H and PPI History of Present Illness: Myles Venegas is a 32 y.o. female with history of polysubstance abuse presenting with complaints of weakness and dizziness. Patient appears to be a poor historian but says for the last couple weeks she has been fatigued, weak, and dizzy, states she has been tired and sleeping a lot. Hemoglobin 5.5 on labs--no prior lab work to compare for baseline. CT abdomen and pelvis with IV contrast completed with no acute findings, mild diffuse colonic stool burden without evidence of bowel obstruction, grossly no bowel mass or inflammatory changes--recommend endoscopy if concern for GI bleeding. She denies hemoptysis, epistaxis, hematemesis, bright red blood per rectum or black tarry stools. Denies heavy menses, has IUD and has not had a menstrual cycle in the last couple years. Stool guaiac negative by ED provider. Last bowel movement yesterday brown in color, notes occasionally dark stools off and on and bowels alternate from loose to formed, but typically stool various shades of brown. She says she has been eating a lot of fast food and attributes it to that. SUNNY by this provider with no stool or blood on exam glove, did not palpate any obvious masses. Denies any dysphagia, heartburn symptoms, nausea or vomiting, abdominal pain, bloating. Occasionally takes ibuprofen and says she takes 4 to 5 tablets at a time maybe once a week or less depending on aches or pains. She is a current 1 pack/day smoker and denies alcohol consumption. Denies any current drug use and says past history of heroin and methamphetamines last used in 2017. Urine drug screen was positive for fentanyl, methamphetamines, and cannabinoids. She thinks family history of peptic ulcer disease in her mother, but denies any known GI cancers. Maternal grandmother with lung cancer and sister with lymphoma. Denies family history of inflammatory bowel disease. She has never had an EGD or colonoscopy. Pending Lab and Radiology Results Order Current Status B12/Folate In process Iron Study with Ferritin In process CT Abdomen Pelvis With IV Contrast Only Preliminary result Interpretation of Testing: I personally reviewed the labs, notes, imaging, procedures Review of Systems: All other systems reviewed and negative other than HPI Past Medical History: Diagnosis Date Acute blood loss anemia 11/20/2022 Substance abuse (HCC) Past Surgical History: Procedure Laterality Date APPENDECTOMY Family History Problem Relation Age of Onset Depression Mother Diabetes Mother Hypertension Mother Hyperlipidemia Father Social History Tobacco Use Smoking Status Every Day Packs/day: 1.00 Years: 10.00 Pack years: 10.00 Types: Cigarettes Smokeless Tobacco Never Vaping Use Vaping Status Never Used Additional History Comments: None Allergies: Patient has no known allergies. Current HOME Medications: Outpatient Medications Marked as Taking for the 11/20/22 encounter (Hospital Encounter): levonorgestreL (MIRENA) 20 mcg/24 hours (7 yrs) 52 mg IUD, 1 (one) each by Intrauterine route See Admin Instructions . [DISCONTINUED] ibuprofen (ADVIL,MOTRIN) 200 MG tablet, Take 5 (five) tablets (1,000 mg total) by mouth as needed for pain . Current HOSPITAL Medications: pantoprazole (PROTONIX) 80 mg in sodium chloride 0.9 % (NS) 100 mL infusion, 8 mg/hr, Intravenous, Continuous OBJECTIVE: Physical Examination: BP 129/78 Pulse (!) 107 Temp 98.7 F (37.1 C) Resp (!) 22 Ht 5' 6 Wt 74.4 kg (164 lb) SpO2 99% BMI 26.47 kg/m General Appearance: Alert, pale appearing, no acute distress Neck: Supple, trachea midline. Cardiovascular: Regular rate and rhythm Respiratory: Respirations unlabored, Lungs clear to auscultation, no wheezes, crackles or rhonchi. Abdomen: Soft, non distended, normoactive bowel sounds, non- tender to palpation, no organomegaly or masses. Extremities: No clubbing, cyanosis or edema. Musculoskeletal: No joint deformity, swelling or tenderness Neurological: Alert and oriented, no focal deficits, grossly normal motor and sensory Skin: Normal color and turgor, no jaundice or rashes. Psych: Normal mood and affect. Laboratory and Additional Data Reviewed: Reviewed 11/20/22 3:36 PM: Laboratory, Radiology, Medications, and Transcriptions Please note: Portions of this chart may have been created with [employer] voice recognition software. Occasional wrong-word or sound-like substitutions may have occurred due to inherent limitations of the voice recognition software. Please read the chart carefully and recognize, using context, where the substitutions have occurred. [facility] 11-20-2022 History and physical note [facility] [place] [facility] HISTORY AND PHYSICAL -- [facility] Patient Name: Myles Venegas : 1990 MR #: [id number] Admit Date: 11/20/2022 Physicians: Jaiden Mcgill MD (Family); No ref. provider found (Referring) Myles Venegas is a 32 y.o. female patient of Jaiden Mcgill MD with history of IV drug use and tobacco abuse. She is admitted on 11/20/2022 with acute anemia. Symptomatic acute microcytic anemia: Suspected acute blood loss anemia Suspected GI bleeding Presenting with fatigue and dizziness. Hemoglobin on admission 5.5 with significant microcytosis on labs. With occasional melena have high suspicion for enteric blood loss. No significant vaginal bleeding since IUD 2 years ago. Trend CBC every 6 Continue Protonix drip Clear diet, n.p.o. at midnight GI following, appreciate recommendations Cardiac monitoring IV drug use: Polysubstance use Reports last use greater than 2 years ago, however UDS showing fentanyl and amphetamines Check HIV and hepatitis studies Infectious med consulted, appreciate recommendations Thrombocytosis: Suspect has underlying iron deficiency Check iron studies Tobacco abuse: Counseled on cessation Nicotine patch Residence prior to admission: house or apartment Was patient transferred from outlying hospital or ED no Quality Measures DVT Prophylaxis: SCDs Quinn Catheter: absent Medication Reconciliation: Verified Risk variables present on admission: None. Please see assessment and plan for further details. Code Status Full Code; code status verified on 11/20/2022 with patient (capacity intact) Chief Complaint lightheadedness History of Present Illness Myles Venegas is a 32 y.o. female patient of Jaiden Mcgill MD with history of IV drug use and tobacco abuse. She is admitted on 11/20/2022 with acute anemia. To further elaborate patient reports dizziness and lightheadedness for the past 2 weeks. No syncopal episodes. Also with dyspnea on exertion. Denies chest pain. No palpitations. Had Mirena IUD placed 3 years ago and occasionally has vaginal spotting but denies any heavy vaginal bleeding. Does endorse occasional dark stools in the last several months but denies consistent melena in the last several days. No bright red blood per rectum or hematochezia. In the ED tachycardic and blood pressure stable. Blood work notable for hemoglobin of 5.5. Ordered 3 units of blood, started on Protonix drip, and admitted to [facility] for further management. Past Medical History Past Medical History: Diagnosis Date Substance abuse (HCC) Past Surgical History Past Surgical History: Procedure Laterality Date APPENDECTOMY Family History Family History Problem Relation Age of Onset Depression Mother Diabetes Mother Hypertension Mother Hyperlipidemia Father Social History Social History Tobacco Use Smoking Status Every Day Packs/day: 1.00 Years: 10.00 Pack years: 10.00 Types: Cigarettes Smokeless Tobacco Never Vaping Use Vaping Status Never Used Social History Substance and Sexual Activity Alcohol Use No Social History Substance and Sexual Activity Drug Use No Allergy Information I have reviewed the patient's allergies. Patient has no known allergies. Home Medications Home medications were reviewed. Review Of Systems All relevant systems have been reviewed and are negative except as noted in HPI or below Physical Examination BP 118/70 Pulse (!) 108 Temp 98.7 F (37.1 C) Resp 18 Ht 5' 6 Wt 74.4 kg (164 lb) SpO2 100% BMI 26.47 kg/m General Appearance: alert; chronically ill appearing; in no acute distress HEENT: Head- normocephalic; Eyes- EOMI, sclera anicteric; Throat- mucous membranes moist, poor dentition Cardiovascular: Tachycardic rate and regular rhythm; normal S1, S2; no murmurs, rubs, clicks or gallops; peripheral edema absent Respiratory: lungs clear to auscultation; without wheezes, rales or rhonchi; on room air Abdomen: soft, non-tender, non-distended Neurological: oriented x 3; normal speech; no focal findings or movement disorder noted Musculoskeletal: no significant deformity or tenderness to palpation Skin: normal coloration Psych: normal mood and affect [facility] 11-20-2022 History and physical note [facility] [place] [facility] HISTORY AND PHYSICAL -- [facility] Patient Name: Myles Venegas : 1990 MR #: [id number] Admit Date: 11/20/2022 Physicians: Jaiden Mcgill MD (Family); No ref. provider found (Referring) Myles Venegas is a 32 y.o. female patient of Jaiden Mcgill MD with history of IV drug use and tobacco abuse. She is admitted on 11/20/2022 with acute anemia. Symptomatic acute microcytic anemia: Suspected acute blood loss anemia Suspected GI bleeding Presenting with fatigue and dizziness. Hemoglobin on admission 5.5 with significant microcytosis on labs. With occasional melena have high suspicion for enteric blood loss. No significant vaginal bleeding since IUD 2 years ago. Trend CBC every 6 Continue Protonix drip Clear diet, n.p.o. at midnight GI following, appreciate recommendations Cardiac monitoring IV drug use: Polysubstance use Reports last use greater than 2 years ago, however UDS showing fentanyl and amphetamines Check HIV and hepatitis studies Infectious med consulted, appreciate recommendations Thrombocytosis: Suspect has underlying iron deficiency Check iron studies Tobacco abuse: Counseled on cessation Nicotine patch Residence prior to admission: house or apartment Was patient transferred from outlying hospital or ED no Quality Measures DVT Prophylaxis: SCDs Quinn Catheter: absent Medication Reconciliation: Verified Risk variables present on admission: None. Please see assessment and plan for further details. Code Status Full Code; code status verified on 11/20/2022 with patient (capacity intact) Chief Complaint lightheadedness History of Present Illness Myles Venegas is a 32 y.o. female patient of Jaiden Mcgill MD with history of IV drug use and tobacco abuse. She is admitted on 11/20/2022 with acute anemia. To further elaborate patient reports dizziness and lightheadedness for the past 2 weeks. No syncopal episodes. Also with dyspnea on exertion. Denies chest pain. No palpitations. Had Mirena IUD placed 3 years ago and occasionally has vaginal spotting but denies any heavy vaginal bleeding. Does endorse occasional dark stools in the last several months but denies consistent melena in the last several days. No bright red blood per rectum or hematochezia. In the ED tachycardic and blood pressure stable. Blood work notable for hemoglobin of 5.5. Ordered 3 units of blood, started on Protonix drip, and admitted to [facility] for further management. Past Medical History Past Medical History: Diagnosis Date Substance abuse (HCC) Past Surgical History Past Surgical History: Procedure Laterality Date APPENDECTOMY Family History Family History Problem Relation Age of Onset Depression Mother Diabetes Mother Hypertension Mother Hyperlipidemia Father Social History Social History Tobacco Use Smoking Status Every Day Packs/day: 1.00 Years: 10.00 Pack years: 10.00 Types: Cigarettes Smokeless Tobacco Never Vaping Use Vaping Status Never Used Social History Substance and Sexual Activity Alcohol Use No Social History Substance and Sexual Activity Drug Use No Allergy Information I have reviewed the patient's allergies. Patient has no known allergies. Home Medications Home medications were reviewed. Review Of Systems All relevant systems have been reviewed and are negative except as noted in HPI or below Physical Examination BP 118/70 Pulse (!) 108 Temp 98.7 F (37.1 C) Resp 18 Ht 5' 6 Wt 74.4 kg (164 lb) SpO2 100% BMI 26.47 kg/m General Appearance: alert; chronically ill appearing; in no acute distress HEENT: Head- normocephalic; Eyes- EOMI, sclera anicteric; Throat- mucous membranes moist, poor dentition Cardiovascular: Tachycardic rate and regular rhythm; normal S1, S2; no murmurs, rubs, clicks or gallops; peripheral edema absent Respiratory: lungs clear to auscultation; without wheezes, rales or rhonchi; on room air Abdomen: soft, non-tender, non-distended Neurological: oriented x 3; normal speech; no focal findings or movement disorder noted Musculoskeletal: no significant deformity or tenderness to palpation Skin: normal coloration Psych: normal mood and affect documented in this encounter [facility] 11-20-2022 Physician Emergency department Note [facility] ED note NAME: Myles Venegas 32 y.o. CSN: [id number] PCP: Jaiden Mcgill MD History: Chief Complaint: Dizziness HPI: Patient is a 32-year-old female presents to the ED with complaints of dizziness. Patient states she has had intermittent weakness dizziness lack of energy for about a month she also states she has had noticed some dark stools intermittently for the past month. She denies hemoptysis denies any history of GI bleed denies any history of gastric ulcer diseases denies history of inflammatory bowel disease diverticulitis bowel obstruction. PMHx: Past Medical History: Diagnosis Date Acute blood loss anemia 11/20/2022 Substance abuse (HCC) PMSx: Past Surgical History: Procedure Laterality Date APPENDECTOMY FAM. Hx: Family History Problem Relation Age of Onset Depression Mother Diabetes Mother Hypertension Mother Hyperlipidemia Father SOC. Hx: Social History Socioeconomic History Marital status: Unknown Tobacco Use Smoking status: Every Day Packs/day: 1.00 Years: 10.00 Pack years: 10.00 Types: Cigarettes Smokeless tobacco: Never Vaping Use Vaping Use: Never used Substance and Sexual Activity Alcohol use: No Drug use: No Sexual activity: Yes Partners: Male control/protection: I.U.D. MEDs: Previous Medications Medication Sig levonorgestreL (MIRENA) 20 mcg/24 hours (7 yrs) 52 mg IUD 1 (one) each by Intrauterine route See Admin Instructions . [DISCONTINUED] ibuprofen (ADVIL,MOTRIN) 200 MG tablet Take 5 (five) tablets (1,000 mg total) by mouth as needed for pain . [DISCONTINUED] albuterol 90 mcg/actuation inhaler 1-2 puffs every 4-6 hours prn cough/wheeze/sob; dispense with spacer . [DISCONTINUED] azithromycin (Zithromax Z-Tyron) 250 MG tablet Take 2 tabs today, then one tab daily x 4 days . (Patient not taking: Reported on 10/28/2022 .) [DISCONTINUED] bacitracin 500 unit/gram ointment Apply topically 2 (two) times a day . [DISCONTINUED] inhalational spacing device inhaler Use as instructed . (Patient not taking: Reported on 10/28/2022 .) [DISCONTINUED] naltrexone microspheres (VIVITROL) Inject 380 (three hundred eighty) mg into the shoulder, thigh, or buttocks every 28 days. (Patient not taking: Reported on 08/05/2021 .) ALL: No Known Allergies ROS: Review of Systems Positives and pertinent negatives as per HPI. All other systems were reviewed and are negative. Physical Exam: Patient Vitals for the past 24 hrs: BP Temp Temp src Pulse Resp SpO2 Height Weight 11/20/22 1918 125/79 97.4 F (36.3 C) Oral (!) 112 12 100 % -- -- 11/20/22 1751 128/81 97.7 F (36.5 C) Oral (!) 107 18 -- -- -- 11/20/22 1735 (!) 141/81 98.7 F (37.1 C) -- (!) 112 (!) 20 -- -- -- 11/20/22 1600 -- -- -- -- 12 -- -- -- 11/20/22 1530 129/78 -- -- (!) 107 (!) 22 99 % -- -- 11/20/22 1515 -- -- -- (!) 109 (!) 20 99 % -- -- 11/20/22 1430 129/73 -- -- (!) 107 13 99 % -- -- 11/20/22 1345 118/70 98.7 F (37.1 C) -- (!) 108 18 100 % -- -- 11/20/22 1327 (!) 111/91 99.2 F (37.3 C) -- (!) 109 18 -- -- -- 11/20/22 1245 125/79 -- -- (!) 116 18 100 % -- -- 11/20/22 1114 136/83 97.9 F (36.6 C) Oral (!) 119 17 100 % 5' 6 74.4 kg (164 lb) Physical Exam Vitals and nursing note reviewed. Constitutional: Appearance: She is ill-appearing. HENT: Head: Normocephalic and atraumatic. Nose: Nose normal. Eyes: Pupils: Pupils are equal, round, and reactive to light. Cardiovascular: Rate and Rhythm: Regular rhythm. Tachycardia present. Musculoskeletal: General: Normal range of motion. Cervical back: Normal range of motion and neck supple. Pulmonary: Effort: Pulmonary effort is normal. No respiratory distress. Breath sounds: Normal breath sounds. No stridor. Abdominal: General: Abdomen is flat. Bowel sounds are normal. There is no distension. Palpations: Abdomen is soft. There is no mass. Tenderness: There is no abdominal tenderness. There is no guarding. Genitourinary: Comments: Rectal exam: Hemoccult negative. RN at bedside for assistance. Skin: Coloration: Skin is pale. Neurological: General: No focal deficit present. Mental Status: She is alert. Motor: Weakness present. Psychiatric: Mood and Affect: Mood normal. Laboratory & Radiological Imaging (if done): Labs Reviewed CHEM 7 - Abnormal; Notable for the following components: Result Value Chloride 109 (*) BUN/Creatinine Ratio 22.4 (*) All other components within normal limits Narrative: [facility] Services has implemented the eGFR calculation approach that does not have a coefficient for race that conforms to the NKF-ASN Task Force Recommendations. TSH WITH REFLEX FREE T4 - Abnormal; Notable for the following components: TSH <0.01 (*) All other components within normal limits URINALYSIS - Abnormal; Notable for the following components: Clarity, Urine Hazy (*) Specific [place] 1.037 (*) Leukocyte Esterase, Urine Small (*) Bacteria, Urine Rare (*) Squamous Epithelial 10 (*) All other components within normal limits Narrative: Microscopic examination is performed on all urinalysis samples and only positive findings are reported. The test for blood on the chemical analytic portion of urinalysis may also be positive due to hemoglobinuria and myoglobinuria and if red blood cells are present they are quantified by microscopic examination. DRUGS OF ABUSE SCREEN, URINE - Abnormal; Notable for the following components: Amphetamine Screen, Urine Presumptive Positive (*) Cannabinoid Screen, Urine Presumptive Positive (*) Fentanyl, Ur Presumptive Positive (*) All other components within normal limits Narrative: Specimen will be kept for 1 week, if the sample is adequate. Confirmation testing can be initiated by calling the lab within 1 week. Screen results should be used for treatment purposes only. IRON STUDY WITH FERRITIN - Abnormal; Notable for the following components: Iron 12 (*) Ferritin 3 (*) TIBC 451 (*) Iron Saturation 3 (*) All other components within normal limits RETICULOCYTE - Abnormal; Notable for the following components: Imm Retic Fract 30.8 (*) Retic Hgb Equivalent 14.7 (*) All other components within normal limits CBC WITH AUTO DIFFERENTIAL - Abnormal; Notable for the following components: RBC 3.02 (*) Hemoglobin 5.5 (*) Hematocrit 20.6 (*) MCV 68.2 (*) MCH 18.2 (*) MCHC 26.7 (*) Platelets 449 (*) RDW - CV 18.6 (*) MPV 8.8 (*) All other components within normal limits COVID-19/INFLUENZA A,B MOLECULAR - Normal Narrative: This test was performed under the FDA's Emergency Use Authorization (EUA). Testing was performed using the Kathi [employer]iel SARS-CoV-2 RT-PCR & Influenza A/B Nucleic Acid Test on the [employer] Rip System. This test has not been approved for use in asymptomatic patients and its performance in this patient population has not been evaluated. Negative results do not rule out the presence of SARS-CoV-2, influenza A, and/or influenza B. Fact sheets for the EUA can be found at the following links: For Healthcare Providers: https://www.fda.gov/media/768583 /download For Patients: https://www.fda.gov/media/818071 /download D-DIMER, QUANTITATIVE - Normal Narrative: A D-dimer concentration of <0.5 micrograms per milliliter FEU is considered a low probability for pulmonary embolus (PE) and deep venous thrombosis (DVT). Results of this test should always be interpreted in conjunction with the patient's medical history,clinical presentation, and other findings. Clinical diagnosis should not be based on the results of the D-dimer alone. HEPATIC FUNCTION PANEL - Normal HCG, BLOOD, QUANTITATIVE - Normal Narrative: Males and non females: <5 mIU/mL Females during : 3-4 weeks 9-130 mIU/mL 4-5 weeks 75-2600 mIU/mL 5-6 weeks 850-20,800 mIU/mL 6-7 weeks 4000-100,200 mIU/mL 7-12 weeks 11,500-289,000 mIU/mL 12-16 weeks 18,300-137,000 mIU/mL 16-29 weeks 1,400-53,000 mIU/mL 29-41 weeks 940-60,000 mIU/mL ALCOHOL, MEDICAL - Normal T4, FREE - Normal B12/FOLATE - Normal OCCULT BLOOD STOOL IMMUNOASSAY (JAYY SAMSON, [place]TN[place] ONLY) CBC AND DIFFERENTIAL Narrative: The following orders were created for panel order CBC w/ Diff. Procedure Abnormality Status --------- ------ CBC Auto Differential[[id number]] Abnormal Final result CBC and Diff Morphology[[id number]] Final result Please view results for these tests on the individual orders. TROPONIN CBC HIV 1/2 SCREEN (4TH GENERATION) HEPATITIS C ANTIBODY HEPATITIS B CHRONIC PANEL Narrative: The following orders were created for panel order Hepatitis B Chronic Panel. Procedure Abnormality Status --------- ------ Hepatitis B Surface Antigen[[id number]] In process Hepatitis Be Antigen[[id number]] In process Hepatitis B Core Antibod...[[id number]] In process Hepatitis B Surface Anti...[[id number]] In process Hepatitis Be Antibody[[id number]] In process Please view results for these tests on the individual orders. HEPATITIS B SURFACE ANTIGEN HEPATITIS B E ANTIGEN HEPATITIS B CORE ANTIBODY, TOTAL HEPATITIS B SURFACE ANTIBODY HEPATITIS B E ANTIBODY CBC T3, FREE PROLACTIN ACTH TYPE AND SCREEN PREPARE RBC MORPHOLOGY ABORH VERIFICATION CT Abdomen Pelvis With IV Contrast Only Preliminary Result Evaluation is somewhat degraded by motion. Particularly in the upper abdomen. No acute findings to account for patient's symptoms. Mild diffuse colonic stool burden without evidence of bowel obstruction. Grossly, no bowel mass or inflammatory changes. Recommend colonoscopy/endoscopy if concern for GI bleed. No obstructive uropathy. Left ovarian cyst, 3.[address] Indeterminate right adrenal nodule measuring up to 1.6 cm. Recommend nonemergent enhanced CT with adrenal mass protocol. Prior appendectomy. / Workstation ID: [id number] XR Chest 1 View Final Result No acute heart or lung disease identified. Workstation ID: [id number] Procedures: Procedures Critical Care Time on this patient was between 30-74 minutes due to concern for This was exclusive of separately billable procedures. I did personally review Myles's past medical history, surgical history, social history, as well as family history (when relevant). In this case, I also oversaw the her drug management by reviewing her medication list, allergy list, as well as the medications that I prescribed during the ED course and/or recommended as an out-patient (including possible OTC medications such as acetaminophen, NSAIDs , etc). Her past medical problem list included: Active Ambulatory Problems Diagnosis Date Noted No Active Ambulatory Problems Resolved Ambulatory Problems Diagnosis Date Noted No Resolved Ambulatory Problems Past Medical History: Diagnosis Date Acute blood loss anemia 11/20/2022 Substance abuse (HCC) ED MEDICATIONS GIVEN: Medications pantoprazole (PROTONIX) 80 mg in sodium chloride 0.9 % (NS) 100 mL infusion (8 mg/hr Intravenous New Bag 11/20/22 1344) nicotine (NICODERM CQ) 21 mg/24 hr 1 patch (1 patch Transdermal Patch Applied 11/20/221956) sodium chloride 0.9% (NS) bolus 1,000 mL (0 mL Intravenous Stopped 11/20/22 1250) sodium chloride (PF) (NS) 0.9 % contrast line flush 10 mL (10 mL Intravenous Given 11/20/22 1242) And sodium chloride (PF) (NS) 0.9 % contrast line flush 80 mL (80 mL Intravenous Given 11/20/22 1242) iopamidoL (ISOVUE-370) 370 mg iodine /mL (76 %) injection 75 mL (75 mL Intravenous Contrast Administered 11/20/22 1241) After reviewing the items above, I look at previous medical documentation, such as recent hospitalizations, office visits, and/or recent consultations with PCP/specialist. SDOH: Another factor that I considered in Myles's care was her Social Determinants of Health (SDOH). During this ED encounter, she LAB TESTING: Ancillary lab testing . CBC Chem-7 type and screen UA LFT RADIOLOGY: I did consider radiological studies for Myles's care today, . CT abdomen and pelvis DIFFERENTIAL DIAGNOSES: Some general clinical impressions that I considered included ACS versus pulmonary embolism versus sepsis versus metabolic versus GI bleed versus malignancy ED COURSE: Patient is a 33-year-old female present with generalized weakness in the ED she is awake alert she also reports few episodes of dark stools intermittent for few weeks. she denies hemoptysis she denies any history of GI bleed patient is not on anticoagulant denies any history of gastric ulcer diseases , in the ED she is awake alert her initial vital BP 136/83, pulse is 1 1 9 bmp, pulse ox is 100% room air she is afebrile 97.9 Fahrenheit respiratory 18 breaths/min concerning for possible infectious versus ACS versus PE versus viral versus COPD versus pneumonia versus metabolic versus sepsis versus GI bleed further work-up initiated including administering a bolus of 1 L normal saline initial blood work does note a hemoglobin of 5.5 which is new anemia for patient a rectal exam was negative and patient given 40 mg IV Protonix administered consent form was obtained , [address] abdomen and pelvis no acute abnormality GI will be consulted patient will be admitted for further management. On this particular ED encounter, I utilize shared decision making. Based on the medication and/or treatment that our team has rendered to this patient, their medical condition has . I recognize that there are risks with hospitalization (such as nosocomial infections, falls, thromboembolic disease, etc) as well as being discharged (worsening of condition, including cardiopulmonary arrest). However, in my medical opinion with the clinical information available to me at the time of this decision, I believe the best disposition for Myles is . The patient has been informed that they may have pre-hypertension or hypertension based on a blood pressure reading in the Emergency Department. I recommend that the patient call the primary care provider listed on their discharge instructions or a physician of their choice as soon as possible to arrange follow-up in the next 4 weeks for further evaluation of possible pre-hypertension or hypertension. . Clinical Impression: 1. Dizziness 2. Anemia, unspecified type 3. Gastrointestinal hemorrhage, unspecified gastrointestinal hemorrhage type 4. Weakness generalized Disposition: ED Disposition ED Disposition Hospitalize Condition -- Comment Reason for inpatient over two midnights: Acute blood loss anemia New Prescriptions This print group is not available in inpatient encounters. Please contact a systems technologist. Lynda Ramos MD ED Attending Physician [facility] Emergency Department (Please note that portions of this note have been completed with a voice recognition software. Efforts were made to correct any errors, but occasionally words are mis-transcribed.) Lynda Ramos MD 11/20/222029 Lynda Ramos MD 11/20/222029 Lynda Ramos MD 11/20/222031 [facility] 11-20-2022 Emergency department Note [facility] ED note NAME: Myles Read 32 y.o. CSN: [id number] PCP: Jaiden Mcgill MD History: Chief Complaint: Dizziness HPI: Patient is a 32-year-old female presents to the ED with complaints of dizziness. Patient states she has had intermittent weakness dizziness lack of energy for about a month she also states she has had noticed some dark stools intermittently for the past month. She denies hemoptysis denies any history of GI bleed denies any history of gastric ulcer diseases denies history of inflammatory bowel disease diverticulitis bowel obstruction. PMHx: Past Medical History: Diagnosis Date Acute blood loss anemia 11/20/2022 Substance abuse (HCC) PMSx: Past Surgical History: Procedure Laterality Date APPENDECTOMY FAM. Hx: Family History Problem Relation Age of Onset Depression Mother Diabetes Mother Hypertension Mother Hyperlipidemia Father SOC. Hx: Social History Socioeconomic History Marital status: Unknown Tobacco Use Smoking status: Every Day Packs/day: 1.00 Years: 10.00 Pack years: 10.00 Types: Cigarettes Smokeless tobacco: Never Vaping Use Vaping Use: Never used Substance and Sexual Activity Alcohol use: No Drug use: No Sexual activity: Yes Partners: Male control/protection: I.U.D. MEDs: Previous Medications Medication Sig levonorgestreL (MIRENA) 20 mcg/24 hours (7 yrs) 52 mg IUD 1 (one) each by Intrauterine route See Admin Instructions . [DISCONTINUED] ibuprofen (ADVIL,MOTRIN) 200 MG tablet Take 5 (five) tablets (1,000 mg total) by mouth as needed for pain . [DISCONTINUED] albuterol 90 mcg/actuation inhaler 1-2 puffs every 4-6 hours prn cough/wheeze/sob; dispense with spacer . [DISCONTINUED] azithromycin (Zithromax Z-Tyron) 250 MG tablet Take 2 tabs today, then one tab daily x 4 days . (Patient not taking: Reported on 10/28/2022 .) [DISCONTINUED] bacitracin 500 unit/gram ointment Apply topically 2 (two) times a day . [DISCONTINUED] inhalational spacing device inhaler Use as instructed . (Patient not taking: Reported on 10/28/2022 .) [DISCONTINUED] naltrexone microspheres (VIVITROL) Inject 380 (three hundred eighty) mg into the shoulder, thigh, or buttocks every 28 days. (Patient not taking: Reported on 08/05/2021 .) ALL: No Known Allergies ROS: Review of Systems Positives and pertinent negatives as per HPI. All other systems were reviewed and are negative. Physical Exam: Patient Vitals for the past 24 hrs: BP Temp Temp src Pulse Resp SpO2 Height Weight 11/20/22 1918 125/79 97.4 F (36.3 C) Oral (!) 112 12 100 % -- -- 11/20/22 1751 128/81 97.7 F (36.5 C) Oral (!) 107 18 -- -- -- 11/20/22 1735 (!) 141/81 98.7 F (37.1 C) -- (!) 112 (!) 20 -- -- -- 11/20/22 1600 -- -- -- -- 12 -- -- -- 11/20/22 1530 129/78 -- -- (!) 107 (!) 22 99 % -- -- 11/20/22 1515 -- -- -- (!) 109 (!) 20 99 % -- -- 11/20/22 1430 129/73 -- -- (!) 107 13 99 % -- -- 11/20/22 1345 118/70 98.7 F (37.1 C) -- (!) 108 18 100 % -- -- 11/20/22 1327 (!) 111/91 99.2 F (37.3 C) -- (!) 109 18 -- -- -- 11/20/22 1245 125/79 -- -- (!) 116 18 100 % -- -- 11/20/22 1114 136/83 97.9 F (36.6 C) Oral (!) 119 17 100 % 5' 6 74.4 kg (164 lb) Physical Exam Vitals and nursing note reviewed. Constitutional: Appearance: She is ill-appearing. HENT: Head: Normocephalic and atraumatic. Nose: Nose normal. Eyes: Pupils: Pupils are equal, round, and reactive to light. Cardiovascular: Rate and Rhythm: Regular rhythm. Tachycardia present. Musculoskeletal: General: Normal range of motion. Cervical back: Normal range of motion and neck supple. Pulmonary: Effort: Pulmonary effort is normal. No respiratory distress. Breath sounds: Normal breath sounds. No stridor. Abdominal: General: Abdomen is flat. Bowel sounds are normal. There is no distension. Palpations: Abdomen is soft. There is no mass. Tenderness: There is no abdominal tenderness. There is no guarding. Genitourinary: Comments: Rectal exam: Hemoccult negative. RN at bedside for assistance. Skin: Coloration: Skin is pale. Neurological: General: No focal deficit present. Mental Status: She is alert. Motor: Weakness present. Psychiatric: Mood and Affect: Mood normal. Laboratory & Radiological Imaging (if done): Labs Reviewed CHEM 7 - Abnormal; Notable for the following components: Result Value Chloride 109 (*) BUN/Creatinine Ratio 22.4 (*) All other components within normal limits Narrative: [facility] Laboratory Services has implemented the eGFR calculation approach that does not have a coefficient for race that conforms to the NKF-ASN Task Force Recommendations. TSH WITH REFLEX FREE T4 - Abnormal; Notable for the following components: TSH <0.01 (*) All other components within normal limits URINALYSIS - Abnormal; Notable for the following components: Clarity, Urine Hazy (*) Specific [place] 1.037 (*) Leukocyte Esterase, Urine Small (*) Bacteria, Urine Rare (*) Squamous Epithelial 10 (*) All other components within normal limits Narrative: Microscopic examination is performed on all urinalysis samples and only positive findings are reported. The test for blood on the chemical analytic portion of urinalysis may also be positive due to hemoglobinuria and myoglobinuria and if red blood cells are present they are quantified by microscopic examination. DRUGS OF ABUSE SCREEN, URINE - Abnormal; Notable for the following components: Amphetamine Screen, Urine Presumptive Positive (*) Cannabinoid Screen, Urine Presumptive Positive (*) Fentanyl, Ur Presumptive Positive (*) All other components within normal limits Narrative: Specimen will be kept for 1 week, if the sample is adequate. Confirmation testing can be initiated by calling the lab within 1 week. Screen results should be used for treatment purposes only. IRON STUDY WITH FERRITIN - Abnormal; Notable for the following components: Iron 12 (*) Ferritin 3 (*) TIBC 451 (*) Iron Saturation 3 (*) All other components within normal limits RETICULOCYTE - Abnormal; Notable for the following components: Imm Retic Fract 30.8 (*) Retic Hgb Equivalent 14.7 (*) All other components within normal limits CBC WITH AUTO DIFFERENTIAL - Abnormal; Notable for the following components: RBC 3.02 (*) Hemoglobin 5.5 (*) Hematocrit 20.6 (*) MCV 68.2 (*) MCH 18.2 (*) MCHC 26.7 (*) Platelets 449 (*) RDW - CV 18.6 (*) MPV 8.8 (*) All other components within normal limits COVID-19/INFLUENZA A,B MOLECULAR - Normal Narrative: This test was performed under the FDA's Emergency Use Authorization (EUA). Testing was performed using the Kathi Osiel SARS-CoV-2 RT-PCR & Influenza A/B Nucleic Acid Test on the Osiel Rip System. This test has not been approved for use in asymptomatic patients and its performance in this patient population has not been evaluated. Negative results do not rule out the presence of SARS-CoV-2, influenza A, and/or influenza B. Fact sheets for the EUA can be found at the following links: For Healthcare Providers: https://www.fda.gov/media/647500 /download For Patients: https://www.fda.gov/media/478341 /download D-DIMER, QUANTITATIVE - Normal Narrative: A D-dimer concentration of <0.5 micrograms per milliliter FEU is considered a low probability for pulmonary embolus (PE) and deep venous thrombosis (DVT). Results of this test should always be interpreted in conjunction with the patient's medical history,clinical presentation, and other findings. Clinical diagnosis should not be based on the results of the D-dimer alone. HEPATIC FUNCTION PANEL - Normal HCG, BLOOD, QUANTITATIVE - Normal Narrative: Males and non females: <5 mIU/mL Females during : 3-4 weeks 9-130 mIU/mL 4-5 weeks 75-2600 mIU/mL 5-6 weeks 850-20,800 mIU/mL 6-7 weeks 4000-100,200 mIU/mL 7-12 weeks 11,500-289,000 mIU/mL 12-16 weeks 18,300-137,000 mIU/mL 16-29 weeks 1,400-53,000 mIU/mL 29-41 weeks 940-60,000 mIU/mL ALCOHOL, MEDICAL - Normal T4, FREE - Normal B12/FOLATE - Normal OCCULT BLOOD STOOL IMMUNOASSAY (JAYY SAMSON, BRITTNEE ONLY) CBC AND DIFFERENTIAL Narrative: The following orders were created for panel order CBC w/ Diff. Procedure Abnormality Status --------- ------ CBC Auto Differential[[id number]] Abnormal Final result CBC and Diff Morphology[[id number]] Final result Please view results for these tests on the individual orders. TROPONIN CBC HIV 1/2 SCREEN (4TH GENERATION) HEPATITIS C ANTIBODY HEPATITIS B CHRONIC PANEL Narrative: The following orders were created for panel order Hepatitis B Chronic Panel. Procedure Abnormality Status --------- ------ Hepatitis B Surface Antigen[[id number]] In process Hepatitis Be Antigen[[id number]] In process Hepatitis B Core Antibod...[[id number]] In process Hepatitis B Surface Anti...[[id number]] In process Hepatitis Be Antibody[[id number]] In process Please view results for these tests on the individual orders. HEPATITIS B SURFACE ANTIGEN HEPATITIS B E ANTIGEN HEPATITIS B CORE ANTIBODY, TOTAL HEPATITIS B SURFACE ANTIBODY HEPATITIS B E ANTIBODY CBC T3, FREE PROLACTIN ACTH TYPE AND SCREEN PREPARE RBC MORPHOLOGY ABORH VERIFICATION CT Abdomen Pelvis With IV Contrast Only Preliminary Result Evaluation is somewhat degraded by motion. Particularly in the upper abdomen. No acute findings to account for patient's symptoms. Mild diffuse colonic stool burden without evidence of bowel obstruction. Grossly, no bowel mass or inflammatory changes. Recommend colonoscopy/endoscopy if concern for GI bleed. No obstructive uropathy. Left ovarian cyst, 3.[address] Indeterminate right adrenal nodule measuring up to 1.6 cm. Recommend nonemergent enhanced CT with adrenal mass protocol. Prior appendectomy. / Workstation ID: [id number] XR Chest 1 View Final Result No acute heart or lung disease identified. Workstation ID: [id number] Procedures: Procedures Critical Care Time on this patient was between 30-74 minutes due to concern for This was exclusive of separately billable procedures. I did personally review Myles's past medical history, surgical history, social history, as well as family history (when relevant). In this case, I also oversaw the her drug management by reviewing her medication list, allergy list, as well as the medications that I prescribed during the ED course and/or recommended as an out-patient (including possible OTC medications such as acetaminophen, NSAIDs , etc). Her past medical problem list included: Active Ambulatory Problems Diagnosis Date Noted No Active Ambulatory Problems Resolved Ambulatory Problems Diagnosis Date Noted No Resolved Ambulatory Problems Past Medical History: Diagnosis Date Acute blood loss anemia 11/20/2022 Substance abuse (HCC) ED MEDICATIONS GIVEN: Medications pantoprazole (PROTONIX) 80 mg in sodium chloride 0.9 % (NS) 100 mL infusion (8 mg/hr Intravenous New Bag 11/20/22 1344) nicotine (NICODERM CQ) 21 mg/24 hr 1 patch (1 patch Transdermal Patch Applied 11/20/221956) sodium chloride 0.9% (NS) bolus 1,000 mL (0 mL Intravenous Stopped 11/20/22 1250) sodium chloride (PF) (NS) 0.9 % contrast line flush 10 mL (10 mL Intravenous Given 11/20/22 1242) And sodium chloride (PF) (NS) 0.9 % contrast line flush 80 mL (80 mL Intravenous Given 11/20/22 1242) iopamidoL (ISOVUE-370) 370 mg iodine /mL (76 %) injection 75 mL (75 mL Intravenous Contrast Administered 11/20/22 1241) After reviewing the items above, I look at previous medical documentation, such as recent hospitalizations, office visits, and/or recent consultations with PCP/specialist. SDOH: Another factor that I considered in Myles's care was her Social Determinants of Health (SDOH). During this ED encounter, she LAB TESTING: Ancillary lab testing . CBC Chem-7 type and screen UA LFT RADIOLOGY: I did consider radiological studies for Myles's care today, . CT abdomen and pelvis DIFFERENTIAL DIAGNOSES: Some general clinical impressions that I considered included ACS versus pulmonary embolism versus sepsis versus metabolic versus GI bleed versus malignancy ED COURSE: Patient is a 33-year-old female present with generalized weakness in the ED she is awake alert she also reports few episodes of dark stools intermittent for few weeks. she denies hemoptysis she denies any history of GI bleed patient is not on anticoagulant denies any history of gastric ulcer diseases , in the ED she is awake alert her initial vital BP 136/83, pulse is 1 1 9 bmp, pulse ox is 100% room air she is afebrile 97.9 Fahrenheit respiratory 18 breaths/min concerning for possible infectious versus ACS versus PE versus viral versus COPD versus pneumonia versus metabolic versus sepsis versus GI bleed further work-up initiated including administering a bolus of 1 L normal saline initial blood work does note a hemoglobin of 5.5 which is new anemia for patient a rectal exam was negative and patient given 40 mg IV Protonix administered consent form was obtained , [address] abdomen and pelvis no acute abnormality GI will be consulted patient will be admitted for further management. On this particular ED encounter, I utilize shared decision making. Based on the medication and/or treatment that our team has rendered to this patient, their medical condition has . I recognize that there are risks with hospitalization (such as nosocomial infections, falls, thromboembolic disease, etc) as well as being discharged (worsening of condition, including cardiopulmonary arrest). However, in my medical opinion with the clinical information available to me at the time of this decision, I believe the best disposition for Myles is . The patient has been informed that they may have pre-hypertension or hypertension based on a blood pressure reading in the Emergency Department. I recommend that the patient call the primary care provider listed on their discharge instructions or a physician of their choice as soon as possible to arrange follow-up in the next 4 weeks for further evaluation of possible pre-hypertension or hypertension. . Clinical Impression: 1. Dizziness 2. Anemia, unspecified type 3. Gastrointestinal hemorrhage, unspecified gastrointestinal hemorrhage type 4. Weakness generalized Disposition: ED Disposition ED Disposition Hospitalize Condition -- Comment Reason for inpatient over two midnights: Acute blood loss anemia New Prescriptions This print group is not available in inpatient encounters. Please contact a systems technologist. Lynda Ramos MD ED Attending Physician [facility] Emergency Department (Please note that portions of this note have been completed with a voice recognition software. Efforts were made to correct any errors, but occasionally words are mis-transcribed.) Lynda Ramos MD 11/20/222029 Lynda Ramos MD 11/20/222029 Lynda Ramos MD 11/20/222031 Hourly rounding assessment completed on the patient. [x] Patient updated on plan of care [x] All comfort needs addressed [x] Patient updated on duration of visit All questions answered, patient denies further needs. Call light within reach. JYOTI BYRD RN AWARE OF HBG OF 5.[address] AWARE OF DR RAMOS ALREADY AWARE Bed: 33 Expected date: Expected time: Means of arrival: Comments: CLOSED Patient presents to ED for dizziness and shortness of breath that started about 2 weeks ago. She states that symptoms have been occurring more frequently. documented in this encounter [facility] 11-20-2022 Emergency department Note Hourly rounding assessment completed on the patient. [x] Patient updated on plan of care [x] All comfort needs addressed [x] Patient updated on duration of visit All questions answered, patient denies further needs. Call light within reach. [facility] 11-20-2022 Emergency department Note JYOTI BYRD RN AWARE OF HBG OF 5.[address]WARE OF [address] RAMOS ALREADY AWARE [facility] 11-20-2022 Emergency department Note Bed: 33 Expected date: Expected time: Means of arrival: Comments: CLOSED [facility] 11-20-2022 Emergency department Triage note Patient presents to ED for dizziness and shortness of breath that started about 2 weeks ago. She states that symptoms have been occurring more frequently. [facility] 10-28-2022 Instructions Kiana Keene CNP - 10/28/2022 3:30 PM EDT Thank you for choosing [facility] for your healthcare needs today. I sent in a topical antibiotic, an oral antibiotic and Motrin for pain. Please consider smoking cessation. Follow up with your doctor for tachycardia. ER for fever, worsening of the redness and swelling of the skin surrounding the blisters. The following attachments cannot be sent through Care Everywhere.Rocha (Kazakh)documented in this encounter [facility] 10-28-2022 History of Present illness Narrative Images from the original note were not included. Patient Name: [facility] Location: My[facility] Venegas [address] [place] [id number] Date Of : Date Of Visit: 1990 10/28/2022 MRN# Provider: [id number] Kiana Keene CNP Chief Complaint Patient presents with Foot Burn Blisters on bilat ankles and feel, left foot and ankle swelling Assessment & Plan 1. Burn cephALEXin (KEFLEX) 500 MG capsule bacitracin 500 unit/gram ointment Apply dressing ibuprofen (ADVIL,MOTRIN) 600 MG tablet several small blisters to the left ankle, lateral/posterior aspect 2. Cigarette smoker No follow-ups on file. Medical Decision Making Client is pleasant, non-toxic in NAD with report of rocha to the left ankle. She reports that she spilled hot water she was cleaning with. This occurred several days ago. 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 She has since developed some redness and swelling of the surrounding skin with increasing pain. Appearance of developing cellulitis to the lateral left ankle. Small vesicles intact with one longer blister peeling. No blisters noted to the soles of the feet. No blisters noted to the right foot. Tachycardic in clinic. Needing a work note. Smoker not ready to quit. Not or nursing and has no allergies. Reports Tetanus is UTD. See H&P Bacitracin, Keflex, Motrin Work Note 13,14 as she was off today Additional Clinical Comments I sent in a topical antibiotic, an oral antibiotic and Motrin for pain. Please consider smoking cessation. Follow up with your doctor for tachycardia. ER for fever, worsening of the redness and swelling of the skin surrounding the blisters. Subjective 32 y.o. female presents with Foot Burn (Blisters on bilat ankles and feel, left foot and ankle swelling ) Client states she obtained rocha to the left foot and ankle with hot water while cleaning several days ago. She then wore a pair of boots that did not fit her properly un-ld one of the blisters. She has since developed an area of painful swelling with erythema surrounding the blister. Wound Check Treated in ED: none. Her temperature was unmeasured prior to arrival. There has been no drainage from the wound. There is new redness present. There is new swelling present. There is new pain present. She has no difficulty moving the affected extremity or digit. Review Of Systems Review of Systems Constitutional: Negative for fever. Skin: Positive for color change, rash and wound. Client with some blisters to the left ankle. Medical History Past Medical History: Diagnosis Date Substance abuse (HCC) Past Surgical History: Procedure Laterality Date APPENDECTOMY There is no problem list on file for this patient. Social History Social History Tobacco Use Smoking status: Every Day Packs/day: 1.00 Years: 10.00 Pack years: 10.00 Types: Cigarettes Smokeless tobacco: Never Vaping Use Vaping status: Never Used Substance Use Topics Alcohol use: No Drug use: No Family History Family History Problem Relation Age of Onset Depression Mother Diabetes Mother Hypertension Mother Hyperlipidemia Father Objective Physical Exam BP 131/83 Pulse (!) 118 Comment: recheck pr Temp 97.8 F (36.6 C) (Tympanic) Resp 16 Ht 5' 6 Wt 76.2 kg (168 lb) SpO2 98% BMI 27.12 kg/m Vision/Hearing Exam:No results found. Physical Exam Vitals and nursing note reviewed. Constitutional: General: She is not in acute distress. Appearance: Normal appearance. She is not ill-appearing, toxic-appearing or diaphoretic. HENT: Head: Normocephalic and atraumatic. Cardiovascular: Rate and Rhythm: Tachycardia present. Pulmonary: Effort: No respiratory distress. Breath sounds: No wheezing. Skin: General: Skin is warm and dry. Comments: Client with three blisters to the left ankle/lateral/posterior aspect. One blister is peeling away. Client has mild swelling and light erythema of the skin surrounding the blisters/appearance of developing cellulitis. She has some areas of skin irritation to the posterior lower leg. Pulses present in the foot. Neurological: Mental Status: She is alert. Psychiatric: Mood and Affect: Mood normal. Behavior: Behavior normal. Procedure Notes Procedures Results No results found for this or any previous visit (from the past 168 hour(s)). No orders to display Orders Placed This Visit Orders Placed This Encounter Procedures Apply dressing Medication List At End Of Visit Current Outpatient Medications Medication Sig Dispense Refill albuterol 90 mcg/actuation inhaler 1-2 puffs every 4-6 hours prn cough/wheeze/sob; dispense with spacer . 18 g 1 azithromycin (Zithromax Z-Tyron) 250 MG tablet Take 2 tabs today, then one tab daily x 4 days . (Patient not taking: Reported on 10/28/2022 .) 6 tablet 0 bacitracin 500 unit/gram ointment Apply topically 2 (two) times a day . 15 g 0 cephALEXin (KEFLEX) 500 MG capsule Take 1 (one) capsule (500 mg total) by mouth 2 (two) times a day for 7 days . 14 capsule 0 ibuprofen (ADVIL,MOTRIN) 600 MG tablet Take 1 (one) tablet (600 mg total) by mouth every 8 (eight) hours as needed for pain . 30 tablet 0 inhalational spacing device inhaler Use as instructed . (Patient not taking: Reported on 10/28/2022 .) 1 each 2 levonorgestreL (MIRENA) 20 mcg/24 hours (7 yrs) 52 mg IUD 1 (one) each by Intrauterine route See Admin Instructions . naltrexone microspheres (VIVITROL) Inject 380 (three hundred eighty) mg into the shoulder, thigh, or buttocks every 28 days. (Patient not taking: Reported on 08/05/2021 .) 1 each 1 No current facility-administered medications for this visit. Patient Instructions Thank you for choosing [facility] for your healthcare needs today. I sent in a topical antibiotic, an oral antibiotic and Motrin for pain. Please consider smoking cessation. Follow up with your doctor for tachycardia. ER for fever, worsening of the redness and swelling of the skin surrounding the blisters. documented in this encounter [facility] 08-06-2021 History of Present illness Narrative Pt work note updated, test results provided; call placed and info sent through [employer]. [employer]pac documented in this encounter [facility] 08-05-2021 Instructions Tyra Damico CNP - 08/05/2021 3:44 PM EST Images from the original note were not included. Your COVID test is pending. You should quarantine until your results are known. If the test result is POSITIVE, Isolate until: - 5 days have passed from symptom onset AND - You have no symptoms or your symptoms are resolving AND - You have been without fever (100.4F) without the use of fever-reducing medication for 24 hours AND - You are able to wear a well fitting mask around others for 5 days after initial 5 day isolation period - If you have continued symptoms or fever on or after day 5, continue quarantine until resolution and wear a mask around others until day 10. - If you had been without symptoms and develop symptoms at any point please contact your medical provider - If you are unable to wear a mask at all times around others, a 10 day quarantine is recommended. - It is not recommended by the CDC to have another COVID-19 test done in order to discontinue isolation or return to work/school. [facility] urgent cares follow CDC guidelines and do not retest within 90 days of previous infection. You should notify anyone within close contact with you (defined below) two days prior to your symptoms starting until 5 days after symptoms started, that they have been exposed while you were contagious. They should follow the instructions below on what quarantine/isolation is necessary based on their vaccination status, symptoms, and test results. If the test result is NEGATIVE and you were exposed: If you are FULLY VACCINATED and have had a BOOSTER or if the LAST DOSE OF YOUR VACCINE WAS LESS THAN 6 MONTHS AGO (less than 2 months for J&J): - If you have had close contact with someone who tested positive for COVID-19, you may end quarantine after a negative test. - If this test was not completed 5 days after exposure, it is recommended that you get tested 5 days after last exposure date, whether or not you have symptoms. - You should wear a mask in public for 10 days following last exposure date, regardless of test result or symptoms. If you are NOT FULLY VACCINATED, or your LAST DOSE OF YOUR VACCINE WAS MORE THAN 6 MONTHS AGO (or 2 months ago for J&J) and you have not received your booster: - You should still quarantine for 5 days plus wear a mask around others for 5 additional days (even if you have no symptoms and/or have a negative test) - If this test was not completed 5 days after exposure, get tested on day 5 after exposure. If the test result is NEGATIVE and you were not exposed: - You may return to work once fever free for 24 hours without the help of medication. As always, guidelines of quarantine and isolation are subject to change on a daily basis. For questions regarding COVID-19 or questions about testing: Call the [facility] ([facility]) Call Center Open 7 days a week 9am-8pm [phone] ( ) Additional information is available from the Center of Disease Control (CDC) at: https://www.cdc.gov/coronavirus/ 2019-ncov/about/mrulm-msru-elqn. html Coronavirus (COVID-19): Care Instructions Overview The coronavirus disease (COVID-19) is caused by a virus. Symptoms may include a fever, a cough, and shortness of breath. It can spread through droplets from coughing and sneezing, breathing, and singing. The virus also can spread when people are in close contact with someone who is infected. Most people have mild symptoms and can take care of themselves at home. If their symptoms get worse, they may need care in a hospital. Treatment may include medicines to reduce symptoms, plus breathing support such as oxygen therapy or a ventilator. It's important to not spread the virus to others. If you have COVID-19, wear a mask anytime you are around other people. It can help stop the spread of the virus. You need to isolate yourself while you are sick. Leave your home only if you need to get medical care or testing. Follow-up care is a ramirez part of your treatment and safety. Be sure to make and go to all appointments, and call your doctor if you are having problems. It's also a good idea to know your test results and keep a list of the medicines you take. How can you care for yourself at home? Get extra rest. It can help you feel better. Drink plenty of fluids. This helps replace fluids lost from fever. Fluids may also help ease a scratchy throat. You can take acetaminophen (Tylenol) or ibuprofen (Advil, Motrin) to reduce a fever. It may also help with muscle and body aches. Read and follow all instructions on the label. Use petroleum jelly on sore skin. This can help if the skin around your nose and lips becomes sore from rubbing a lot with tissues. If you use oxygen, use a water-based product instead of petroleum jelly. Keep track of symptoms such as fever and shortness of breath. This can help you know if you need to call your doctor. It can also help you know when it's safe to be around other people. In some cases, your doctor might suggest that you get a pulse oximeter. How can you self-isolate when you have COVID-19? If you have COVID-19, there are things you can do to help avoid spreading the virus to others. Limit contact with people in your home. If possible, stay in a separate bedroom and use a separate bathroom. Wear a mask when you are around other people. If you have to leave home, avoid crowds and try to stay at least 6 feet away from other people. Avoid contact with pets and other animals. Cover your mouth and nose with a tissue when you cough or sneeze. Then throw it in the trash right away. Wash your hands often, especially after you cough or sneeze. Use soap and water, and scrub for at least 20 seconds. If soap and water aren't available, use an alcohol-based hand pan dumper. Don't share personal household items. These include bedding, towels, cups and glasses, and eating utensils. Wash laundry in the warmest water allowed for the fabric type, and dry it completely. It's okay to wash other people's laundry with yours. Clean and disinfect your home. Use household treater helper and disinfectant wipes or sprays. When can you end self-isolation for COVID-19? If you know or think that you have the virus, you will need to self-isolate. You can be around others after: It's been at least 10 days since your symptoms started and You haven't had a fever for 24 hours without taking medicines to lower the fever and Your symptoms are improving. If you tested positive but have no symptoms, you can end isolation after 10 days. But if you start to have symptoms, follow the steps above. Ask your doctor if you need to be tested before you end isolation. This is especially important if you have a weakened immune system. When should you call for help? Call 911 anytime you think you may need emergency care. For example, call if you have life-threatening symptoms, such as: You have severe trouble breathing. (You can't talk at all.) You have constant chest pain or pressure. You are severely dizzy or lightheaded. You are confused or can't think clearly. You have pale, harman, or blue-colored skin or lips. You pass out (lose consciousness) or are very hard to wake up. Call your doctor now or seek immediate medical care if: You have moderate trouble breathing. (You can't speak a full sentence.) You are coughing up blood (more than about 1 teaspoon). You have signs of low blood pressure. These include feeling lightheaded; being too weak to stand; and having cold, pale, clammy skin. Watch closely for changes in your health, and be sure to contact your doctor if: Your symptoms get worse. You are not getting better as expected. You have new or worse symptoms of anxiety, depression, nightmares, or flashbacks. Call before you go to the doctor's office. Follow their instructions. And wear a mask. Current as of: January 17, 2021 Content Version: 13. [employer]. Care instructions adapted under license by your healthcare professional. If you have questions about a medical condition or this instruction, always ask your healthcare professional. [employer] disclaims any warranty or liability for your use of this information. Recommend OTC Flonase for nasal symptoms plain Mucinex and plenty of fluids to thin secretions as needed. Can take 1 to 2 teaspoons of buckwheat honey 4 to 5 times a day for reducing cough severity. Take the last dose about 30 minutes before bedtime to improve interrupted sleep due to your cough. Can get at the pharmacy or store acetaminophen (tylenol) and or ibuprofen (motrin) for fever and or pain relief (unless you have been instructed not to take either of these medications). Follow medication labeling instructions for appropriate dosing. Follow-up with your primary provider (or return to clinic if your do not have a primary care provider) if not better in 5 to 7 days or earlier if condition worsens. If you experience any significant shortness of breath or difficulty breathing, go to the emergency room for further evaluation. Hope that you are soon feeling better!. Upper Respiratory Infection (Cold): Care Instructions Your Care Instructions An upper respiratory infection, or URI, is an infection of the nose, sinuses, or throat. URIs are spread by coughs, sneezes, and direct contact. The common cold is the most frequent kind of URI. The flu and sinus infections are other kinds of URIs. Almost all URIs are caused by viruses. Antibiotics won't cure them. But you can treat most infections with home care. This may include drinking lots of fluids and taking mhpa-crl-bxegzpa pain medicine. You will probably feel better in 4 to 10 days. The doctor has checked you carefully, but problems can develop later. If you notice any problems or new symptoms, get medical treatment right away. Follow-up care is a ramirez part of your treatment and safety. Be sure to make and go to all appointments, and call your doctor if you are having problems. It's also a good idea to know your test results and keep a list of the medicines you take. How can you care for yourself at home? To prevent dehydration, drink plenty of fluids. Choose water and other caffeine-free clear liquids until you feel better. If you have kidney, heart, or liver disease and have to limit fluids, talk with your doctor before you increase the amount of fluids you drink. Take an kill-ffd-uqauwlq pain medicine, such as acetaminophen (Tylenol), ibuprofen (Advil, Motrin), or naproxen (Aleve). Read and follow all instructions on the label. Before you use cough and cold medicines, check the label. These medicines may not be safe for young children or for people with certain health problems. Be careful when taking vhbc-jel-xevdjfw cold or flu medicines and Tylenol at the same time. Many of these medicines have acetaminophen, which is Tylenol. Read the labels to make sure that you are not taking more than the recommended dose. Too much acetaminophen (Tylenol) can be harmful. Get plenty of rest. Do not smoke or allow others to smoke around you. If you need help quitting, talk to your doctor about stop-smoking programs and medicines. These can increase your chances of quitting for good. When should you call for help? Call 911 anytime you think you may need emergency care. For example, call if: You have severe trouble breathing. Call your doctor now or seek immediate medical care if: You seem to be getting much sicker. You have new or worse trouble breathing. You have a new or higher fever. You have a new rash. Watch closely for changes in your health, and be sure to contact your doctor if: You have a new symptom, such as a sore throat, an earache, or sinus pain. You cough more deeply or more often, especially if you notice more mucus or a change in the color of your mucus. You do not get better as expected. Where can you learn more? Log into your personal health record on https://DoubleRecallhart.[employer]anz and enter K520 in the Education box to learn more about Upper Respiratory Infection (Cold): Care Instructions. Current as of: May 14, 2020 Content Version: 12.8 [employer]. Care instructions adapted under license by your healthcare professional. If you have questions about a medical condition or this instruction, always ask your healthcare professional. [employer] disclaims any warranty or liability for your use of this information. Cough: Care Instructions Your Care Instructions A cough is your body's response to something that bothers your throat or airways. Many things can cause a cough. You might cough because of a cold or the flu, bronchitis, or asthma. Smoking, postnasal drip, allergies, and stomach acid that backs up into your throat also can cause coughs. A cough is a symptom, not a disease. Most coughs stop when the cause, such as a cold, goes away. You can take a few steps at home to cough less and feel better. Follow-up care is a ramirez part of your treatment and safety. Be sure to make and go to all appointments, and call your doctor if you are having problems. It's also a good idea to know your test results and keep a list of the medicines you take. How can you care for yourself at home? Drink lots of water and other fluids. This helps thin the mucus and soothes a dry or sore throat. Honey or lemon juice in hot water or tea may ease a dry cough. Take cough medicine as directed by your doctor. Prop up your head on pillows to help you breathe and ease a dry cough. Try cough drops to soothe a dry or sore throat. Cough drops don't stop a cough. Medicine-flavored cough drops are no better than candy-flavored drops or hard candy. Do not smoke. Avoid secondhand smoke. If you need help quitting, talk to your doctor about stop-smoking programs and medicines. These can increase your chances of quitting for good. When should you call for help? Call 911 anytime you think you may need emergency care. For example, call if: You have severe trouble breathing. Call your doctor now or seek immediate medical care if: You cough up blood. You have new or worse trouble breathing. You have a new or higher fever. You have a new rash. Watch closely for changes in your health, and be sure to contact your doctor if: You cough more deeply or more often, especially if you notice more mucus or a change in the color of your mucus. You have new symptoms, such as a sore throat, an earache, or sinus pain. You do not get better as expected. Where can you learn more? Log into your personal health record on https://Teramindt.[employer] and enter D279 in the Education box to learn more about Cough: Care Instructions. Current as of: May 14, 2020 Content Version: 12.8 [employer]. Care instructions adapted under license by your healthcare professional. If you have questions about a medical condition or this instruction, always ask your healthcare professional. [employer] disclaims any warranty or liability for your use of this information. I would like to encourage you to quit smoking. If you need assistance please talk to your primary care provider about the options available to help you to succeed in stopping smoking. Attached is some additional information that may be helpful. Good luck! You can do it! Stopping Smoking: Care Instructions Your Care Instructions Cigarette smokers crave the nicotine in cigarettes. Giving it up is much harder than simply changing a habit. Your body has to stop craving the nicotine. It is hard to quit, but you can do it. There are many tools that people use to quit smoking. You may find that combining tools works best for you. There are several steps to quitting. First you get ready to quit. Then you get support to help you. After that, you learn new skills and behaviors to become a nonsmoker. For many people, a necessary step is getting and using medicine. Your doctor will help you set up the plan that best meets your needs. You may want to attend a smoking cessation program to help you quit smoking. When you choose a program, look for one that has proven success. Ask your doctor for ideas. You will greatly increase your chances of success if you take medicine as well as get counseling or join a cessation program. Some of the changes you feel when you first quit tobacco are uncomfortable. Your body will miss the nicotine at first, and you may feel short-tempered and grumpy. You may have trouble sleeping or concentrating. Medicine can help you deal with these symptoms. You may struggle with changing your smoking habits and rituals. The last step is the tricky one: Be prepared for the smoking urge to continue for a time. This is a lot to deal with, but keep at it. You will feel better. Follow-up care is a ramirez part of your treatment and safety. Be sure to make and go to all appointments, and call your doctor if you are having problems. It's also a good idea to know your test results and keep a list of the medicines you take. How can you care for yourself at home? Ask your family, friends, and coworkers for support. You have a better chance of quitting if you have help and support. Join a support group, such as Nicotine Anonymous, for people who are trying to quit smoking. Consider signing up for a smoking cessation program, such as the [place] [employer]'s [place] from Smoking program. Get text messaging support. Go to the website at www.smokefree.gov to sign up for the SmokefreeTXT program. Set a quit date. Pick your date carefully so that it is not right in the middle of a big deadline or stressful time. Once you quit, do not even take a puff. Get rid of all ashtrays and lighters after your last cigarette. Clean your house and your clothes so that they do not smell of smoke. Learn how to be a nonsmoker. Think about ways you can avoid those things that make you reach for a cigarette. ? Avoid situations that put you at greatest risk for smoking. For some people, it is hard to have a drink with friends without smoking. For others, they might skip a coffee break with coworkers who smoke. ? Change your daily routine. Take a different route to work or eat a meal in a different place. Cut down on stress. Calm yourself or release tension by doing an activity you enjoy, such as reading a book, taking a hot bath, or gardening. Talk to your doctor or pharmacist about nicotine replacement therapy, which replaces the nicotine in your body. You still get nicotine but you do not use tobacco. Nicotine replacement products help you slowly reduce the amount of nicotine you need. These products come in several forms, many of them available goya-crv-rvqvvgw: ? Nicotine patches ? Nicotine gum and lozenges ? Nicotine inhaler Ask your doctor about bupropion (Wellbutrin) or varenicline (Chantix), which are prescription medicines. They do not contain nicotine. They help you by reducing withdrawal symptoms, such as stress and anxiety. Some people find hypnosis, acupuncture, and massage helpful for ending the smoking habit. Eat a healthy diet and get regular exercise. Having healthy habits will help your body move past its craving for nicotine. Be prepared to keep trying. Most people are not successful the first few times they try to quit. Do not get mad at yourself if you smoke again. Make a list of things you learned and think about when you want to try again, such as next week, next month, or next year. Where can you learn more? Log into your personal health record on https://Teramindt.CollegeFanz and enter Y522 in the Education box to learn more about Stopping Smoking: Care Instructions. Current as of: April 14, 2018 Content Version: 12.20052534-7312 [employer]. Care instructions adapted under license by your healthcare professional. If you have questions about a medical condition or this instruction, always ask your healthcare professional. [employer] disclaims any warranty or liability for your use of this information. Learning About Benefits From Quitting Smoking How does quitting smoking make you healthier? If you're thinking about quitting smoking, you may have a few reasons to be smoke-free. Your health may be one of them. When you quit smoking, you lower your risks for cancer, lung disease, heart attack, stroke, blood vessel disease, and blindness from macular degeneration. When you're smoke-free, you get sick less often, and you heal faster. You are less likely to get colds, flu, bronchitis, and pneumonia. As a nonsmoker, you may find that your mood is better and you are less stressed. When and how will you feel healthier? Quitting has real health benefits that start from day 1 of being smoke-free. And the longer you stay smoke-free, the healthier you get and the better you feel. The first hours After just 20 minutes, your blood pressure and heart rate go down. That means there's less stress on your heart and blood vessels. Within 12 hours, the level of carbon monoxide in your blood drops back to normal. That makes room for more oxygen. With more oxygen in your body, you may notice that you have more energy than when you smoked. After 2 weeks Your lungs start to work better. Your risk of heart attack starts to drop. After 1 month When your lungs are clear, you cough less and breathe deeper, so it's easier to be active. Your sense of taste and smell return. That means you can enjoy food more than you have since you started smoking. Over the years After 1 year, your risk of heart disease is half what it would be if you kept smoking. After 5 years, your risk of stroke starts to shrink. Within a few years after that, it's about the same as if you'd never smoked. After 10 years, your risk of dying from lung cancer is cut by about half. And your risk for many other types of cancer is lower too. How would quitting help others in your life? When you quit smoking, you improve the health of everyone who now breathes in your smoke. Their heart, lung, and cancer risks drop, much like yours. They are sick less. For babies and small children, living smoke-free means they're less likely to have ear infections, pneumonia, and bronchitis. If you're a woman who is or will be someday, quitting smoking means a healthier . Children who are close to you are less likely to become adult smokers. Where can you learn more? Log into your personal health record on https://DoubleRecallhart.CollegeFanz and enter O319 in the Education box to learn more about Learning About Benefits From Quitting Smoking. Current as of: April 14, 2018 Content Version: [id number] [employer]. Care instructions adapted under license by your healthcare professional. If you have questions about a medical condition or this instruction, always ask your healthcare professional. [employer] disclaims any warranty or liability for your use of this information. documented in this encounter [facility] 08-05-2021 History of Present illness Narrative Images from the original note were not included. Patient Name: [facility] Location: [facility] [address] [place] [id number] Date Of : Date Of Visit: 1990 08/05/2021 MRN# Provider: [id number] Tyra Damico CNP Chief Complaint Patient presents with Covid-19 Screening Denies known covid exposure. Not vaccinated. C/O bodyaches, congestion, loss of taste and smell, fatigue, weakness and fever 100.3. Symptoms started Thursday Assessment & Plan Medical Decision Making Presents for covid screening. Presenting symptoms: Loss of taste;Loss of smell;Muscle pain;Runny nose;Cough (congestion), stomach sometimes hurts, nausea and vomiting, fatigue Symptoms started 07/31/21 Exposed to COVID-19: no Vaccinated against COVID-19 : no Most prompting concern today: covid test Vital signs stable. Exam unremarkable. Covid test is pending - sendout. Quarantine until results are known. Symptomatic treatment at this time. Encouraged to quit smoking. Additional Clinical Comments Subjective 31 y.o. female presents with Covid-19 Screening (Denies known covid exposure. Not vaccinated. C/O bodyaches, congestion, loss of taste and smell, fatigue, weakness and fever 100.3. Symptoms started Thursday ) Presents for covid screening. Presenting symptoms: Loss of taste;Loss of smell;Muscle pain;Runny nose;Cough (congestion), stomach sometimes hurts, nausea and vomiting, fatigue Symptoms started 07/31/21 Exposed to COVID-19: no Vaccinated against COVID-19 : no Most prompting concern today: covid test URI This is a new problem. Associated symptoms include abdominal pain, congestion, coughing, nausea, rhinorrhea and vomiting (last 2 days ago). Pertinent negatives include no diarrhea, headaches or sore throat. Review Of Systems Review of Systems Constitutional: Positive for fatigue and fever. Negative for chills. HENT: Positive for congestion and rhinorrhea. Negative for sore throat. Loss of taste and smell Respiratory: Positive for cough. Negative for shortness of breath. Gastrointestinal: Positive for abdominal pain, nausea and vomiting (last 2 days ago). Negative for diarrhea. Musculoskeletal: Positive for myalgias. Neurological: Positive for weakness. Negative for headaches. Medical History Past Medical History: Diagnosis Date Substance abuse (HCC) Past Surgical History: Procedure Laterality Date APPENDECTOMY There is no problem list on file for this patient. Social History Social History Tobacco Use Smoking status: Current Every Day Smoker Packs/day: 1.00 Years: 10.00 Pack years: 10.00 Smokeless tobacco: Never Used Vaping Use Vaping Use: Never used Substance Use Topics Alcohol use: No Drug use: No Family History Family History Problem Relation Age of Onset Depression Mother Diabetes Mother Hypertension Mother Hyperlipidemia Father Objective Physical Exam BP 134/81 (BP Location: Right arm, Patient Position: Sitting, BP Cuff Size: Adult) Pulse 98 Temp 97.8 F (36.6 C) (Temporal) Resp 16 Ht 5' 6 Wt 90.7 kg (200 lb) SpO2 98% BMI 32.28 kg/m Vision/Hearing Exam:No exam data present Physical Exam Vitals and nursing note reviewed. HENT: Head: Normocephalic. Nose: Right Sinus: No maxillary sinus tenderness or frontal sinus tenderness. Left Sinus: No maxillary sinus tenderness or frontal sinus tenderness. Eyes: Conjunctiva/sclera: Conjunctivae normal. Cardiovascular: Rate and Rhythm: Normal rate and regular rhythm. Pulses: Normal pulses. Pulmonary: Effort: Pulmonary effort is normal. Breath sounds: Normal breath sounds. Abdominal: Tenderness: There is no abdominal tenderness. There is no guarding. Lymphadenopathy: Cervical: No cervical adenopathy. Skin: General: Skin is warm and dry. Neurological: Mental Status: She is alert and oriented to person, place, and time. GCS: GCS eye subscore is 4. GCS verbal subscore is 5. GCS motor subscore is 6. Psychiatric: Mood and Affect: Mood normal. Behavior: Behavior normal. Thought Content: Thought content normal. Judgment: Judgment normal. Procedure Notes Procedures Results No results found for this or any previous visit (from the past 168 hour(s)). No orders to display Orders Placed This Visit Orders Placed This Encounter Procedures COVID-19, Molecular Medication List At End Of Visit Current Outpatient Medications Medication Sig Dispense Refill levonorgestreL (MIRENA) 20 mcg/24 hours (7 yrs) 52 mg IUD 1 each by Intrauterine route See Admin Instructions . naltrexone microspheres (VIVITROL) Inject 380 (three hundred eighty) mg into the shoulder, thigh, or buttocks every 28 days. (Patient not taking: Reported on 08/05/2021 .) 1 each 1 No current facility-administered medications for this visit. Patient Instructions Your COVID test is pending. You should quarantine until your results are known. If the test result is POSITIVE, Isolate until: - 5 days have passed from symptom onset AND - You have no symptoms or your symptoms are resolving AND - You have been without fever (100.4F) without the use of fever-reducing medication for 24 hours AND - You are able to wear a well fitting mask around others for 5 days after initial 5 day isolation period - If you have continued symptoms or fever on or after day 5, continue quarantine until resolution and wear a mask around others until day 10. - If you had been without symptoms and develop symptoms at any point please contact your medical provider - If you are unable to wear a mask at all times around others, a 10 day quarantine is recommended. - It is not recommended by the CDC to have another COVID-19 test done in order to discontinue isolation or return to work/school. [facility] urgent cares follow CDC guidelines and do not retest within 90 days of previous infection. You should notify anyone within close contact with you (defined below) two days prior to your symptoms starting until 5 days after symptoms started, that they have been exposed while you were contagious. They should follow the instructions below on what quarantine/isolation is necessary based on their vaccination status, symptoms, and test results. If the test result is NEGATIVE and you were exposed: If you are FULLY VACCINATED and have had a BOOSTER or if the LAST DOSE OF YOUR VACCINE WAS LESS THAN 6 MONTHS AGO (less than 2 months for J&J): - If you have had close contact with someone who tested positive for COVID-19, you may end quarantine after a negative test. - If this test was not completed 5 days after exposure, it is recommended that you get tested 5 days after last exposure date, whether or not you have symptoms. - You should wear a mask in public for 10 days following last exposure date, regardless of test result or symptoms. If you are NOT FULLY VACCINATED, or your LAST DOSE OF YOUR VACCINE WAS MORE THAN 6 MONTHS AGO (or 2 months ago for J&J) and you have not received your booster: - You should still quarantine for 5 days plus wear a mask around others for 5 additional days (even if you have no symptoms and/or have a negative test) - If this test was not completed 5 days after exposure, get tested on day 5 after exposure. If the test result is NEGATIVE and you were not exposed: - You may return to work once fever free for 24 hours without the help of medication. As always, guidelines of quarantine and isolation are subject to change on a daily basis. For questions regarding COVID-19 or questions about testing: Call the [facility] ([facility]) Call Center Open 7 days a week 9am-8pm [id number] ( ) Additional information is available from the Center of Disease Control (CDC) at: https://www.cdc.gov/coronavirus/ 2019-ncov/about/dnwki-pxjb-zrft. html Coronavirus (COVID-19): Care Instructions Overview The coronavirus disease (COVID-19) is caused by a virus. Symptoms may include a fever, a cough, and shortness of breath. It can spread through droplets from coughing and sneezing, breathing, and singing. The virus also can spread when people are in close contact with someone who is infected. Most people have mild symptoms and can take care of themselves at home. If their symptoms get worse, they may need care in a hospital. Treatment may include medicines to reduce symptoms, plus breathing support such as oxygen therapy or a ventilator. It's important to not spread the virus to others. If you have COVID-19, wear a mask anytime you are around other people. It can help stop the spread of the virus. You need to isolate yourself while you are sick. Leave your home only if you need to get medical care or testing. Follow-up care is a ramirez part of your treatment and safety. Be sure to make and go to all appointments, and call your doctor if you are having problems. It's also a good idea to know your test results and keep a list of the medicines you take. How can you care for yourself at home? Get extra rest. It can help you feel better. Drink plenty of fluids. This helps replace fluids lost from fever. Fluids may also help ease a scratchy throat. You can take acetaminophen (Tylenol) or ibuprofen (Advil, Motrin) to reduce a fever. It may also help with muscle and body aches. Read and follow all instructions on the label. Use petroleum jelly on sore skin. This can help if the skin around your nose and lips becomes sore from rubbing a lot with tissues. If you use oxygen, use a water-based product instead of petroleum jelly. Keep track of symptoms such as fever and shortness of breath. This can help you know if you need to call your doctor. It can also help you know when it's safe to be around other people. In some cases, your doctor might suggest that you get a pulse oximeter. How can you self-isolate when you have COVID-19? If you have COVID-19, there are things you can do to help avoid spreading the virus to others. Limit contact with people in your home. If possible, stay in a separate bedroom and use a separate bathroom. Wear a mask when you are around other people. If you have to leave home, avoid crowds and try to stay at least 6 feet away from other people. Avoid contact with pets and other animals. Cover your mouth and nose with a tissue when you cough or sneeze. Then throw it in the trash right away. Wash your hands often, especially after you cough or sneeze. Use soap and water, and scrub for at least 20 seconds. If soap and water aren't available, use an alcohol-based hand pan dumper. Don't share personal household items. These include bedding, towels, cups and glasses, and eating utensils. Wash laundry in the warmest water allowed for the fabric type, and dry it completely. It's okay to wash other people's laundry with yours. Clean and disinfect your home. Use household treater helper and disinfectant wipes or sprays. When can you end self-isolation for COVID-19? If you know or think that you have the virus, you will need to self-isolate. You can be around others after: It's been at least 10 days since your symptoms started and You haven't had a fever for 24 hours without taking medicines to lower the fever and Your symptoms are improving. If you tested positive but have no symptoms, you can end isolation after 10 days. But if you start to have symptoms, follow the steps above. Ask your doctor if you need to be tested before you end isolation. This is especially important if you have a weakened immune system. When should you call for help? Call 911 anytime you think you may need emergency care. For example, call if you have life-threatening symptoms, such as: You have severe trouble breathing. (You can't talk at all.) You have constant chest pain or pressure. You are severely dizzy or lightheaded. You are confused or can't think clearly. You have pale, harman, or blue-colored skin or lips. You pass out (lose consciousness) or are very hard to wake up. Call your doctor now or seek immediate medical care if: You have moderate trouble breathing. (You can't speak a full sentence.) You are coughing up blood (more than about 1 teaspoon). You have signs of low blood pressure. These include feeling lightheaded; being too weak to stand; and having cold, pale, clammy skin. Watch closely for changes in your health, and be sure to contact your doctor if: Your symptoms get worse. You are not getting better as expected. You have new or worse symptoms of anxiety, depression, nightmares, or flashbacks. Call before you go to the doctor's office. Follow their instructions. And wear a mask. Current as of: January 17, 2021 Content Version: 13.1 [employer]. Care instructions adapted under license by your healthcare professional. If you have questions about a medical condition or this instruction, always ask your healthcare professional. [employer] disclaims any warranty or liability for your use of this information. Recommend OTC Flonase for nasal symptoms plain Mucinex and plenty of fluids to thin secretions as needed. Can take 1 to 2 teaspoons of buckwheat honey 4 to 5 times a day for reducing cough severity. Take the last dose about 30 minutes before bedtime to improve interrupted sleep due to your cough. Can get at the pharmacy or store acetaminophen (tylenol) and or ibuprofen (motrin) for fever and or pain relief (unless you have been instructed not to take either of these medications). Follow medication labeling instructions for appropriate dosing. Follow-up with your primary provider (or return to clinic if your do not have a primary care provider) if not better in 5 to 7 days or earlier if condition worsens. If you experience any significant shortness of breath or difficulty breathing, go to the emergency room for further evaluation. Hope that you are soon feeling better!. Upper Respiratory Infection (Cold): Care Instructions Your Care Instructions An upper respiratory infection, or URI, is an infection of the nose, sinuses, or throat. URIs are spread by coughs, sneezes, and direct contact. The common cold is the most frequent kind of URI. The flu and sinus infections are other kinds of URIs. Almost all URIs are caused by viruses. Antibiotics won't cure them. But you can treat most infections with home care. This may include drinking lots of fluids and taking yrcg-spu-qcytdef pain medicine. You will probably feel better in 4 to 10 days. The doctor has checked you carefully, but problems can develop later. If you notice any problems or new symptoms, get medical treatment right away. Follow-up care is a ramirez part of your treatment and safety. Be sure to make and go to all appointments, and call your doctor if you are having problems. It's also a good idea to know your test results and keep a list of the medicines you take. How can you care for yourself at home? To prevent dehydration, drink plenty of fluids. Choose water and other caffeine-free clear liquids until you feel better. If you have kidney, heart, or liver disease and have to limit fluids, talk with your doctor before you increase the amount of fluids you drink. Take an tbcu-ufh-kklblmo pain medicine, such as acetaminophen (Tylenol), ibuprofen (Advil, Motrin), or naproxen (Aleve). Read and follow all instructions on the label. Before you use cough and cold medicines, check the label. These medicines may not be safe for young children or for people with certain health problems. Be careful when taking mstr-iix-akelcic cold or flu medicines and Tylenol at the same time. Many of these medicines have acetaminophen, which is Tylenol. Read the labels to make sure that you are not taking more than the recommended dose. Too much acetaminophen (Tylenol) can be harmful. Get plenty of rest. Do not smoke or allow others to smoke around you. If you need help quitting, talk to your doctor about stop-smoking programs and medicines. These can increase your chances of quitting for good. When should you call for help? Call 911 anytime you think you may need emergency care. For example, call if: You have severe trouble breathing. Call your doctor now or seek immediate medical care if: You seem to be getting much sicker. You have new or worse trouble breathing. You have a new or higher fever. You have a new rash. Watch closely for changes in your health, and be sure to contact your doctor if: You have a new symptom, such as a sore throat, an earache, or sinus pain. You cough more deeply or more often, especially if you notice more mucus or a change in the color of your mucus. You do not get better as expected. Where can you learn more? Log into your personal health record on https://DoubleRecallhart.[employer]anz and enter K520 in the Education box to learn more about Upper Respiratory Infection (Cold): Care Instructions. Current as of: May 14, 2020 Content Version: .8 [employer]. Care instructions adapted under license by your healthcare professional. If you have questions about a medical condition or this instruction, always ask your healthcare professional. [employer] disclaims any warranty or liability for your use of this information. Cough: Care Instructions Your Care Instructions A cough is your body's response to something that bothers your throat or airways. Many things can cause a cough. You might cough because of a cold or the flu, bronchitis, or asthma. Smoking, postnasal drip, allergies, and stomach acid that backs up into your throat also can cause coughs. A cough is a symptom, not a disease. Most coughs stop when the cause, such as a cold, goes away. You can take a few steps at home to cough less and feel better. Follow-up care is a ramirez part of your treatment and safety. Be sure to make and go to all appointments, and call your doctor if you are having problems. It's also a good idea to know your test results and keep a list of the medicines you take. How can you care for yourself at home? Drink lots of water and other fluids. This helps thin the mucus and soothes a dry or sore throat. Honey or lemon juice in hot water or tea may ease a dry cough. Take cough medicine as directed by your doctor. Prop up your head on pillows to help you breathe and ease a dry cough. Try cough drops to soothe a dry or sore throat. Cough drops don't stop a cough. Medicine-flavored cough drops are no better than candy-flavored drops or hard candy. Do not smoke. Avoid secondhand smoke. If you need help quitting, talk to your doctor about stop-smoking programs and medicines. These can increase your chances of quitting for good. When should you call for help? Call 911 anytime you think you may need emergency care. For example, call if: You have severe trouble breathing. Call your doctor now or seek immediate medical care if: You cough up blood. You have new or worse trouble breathing. You have a new or higher fever. You have a new rash. Watch closely for changes in your health, and be sure to contact your doctor if: You cough more deeply or more often, especially if you notice more mucus or a change in the color of your mucus. You have new symptoms, such as a sore throat, an earache, or sinus pain. You do not get better as expected. Where can you learn more? Log into your personal health record on https://Teramindt.[employer] and enter D279 in the Education box to learn more about Cough: Care Instructions. Current as of: May 14, 2020 Content Version: 12.8 [employer]. Care instructions adapted under license by your healthcare professional. If you have questions about a medical condition or this instruction, always ask your healthcare professional. [employer] disclaims any warranty or liability for your use of this information. I would like to encourage you to quit smoking. If you need assistance please talk to your primary care provider about the options available to help you to succeed in stopping smoking. Attached is some additional information that may be helpful. Good luck! You can do it! Stopping Smoking: Care Instructions Your Care Instructions Cigarette smokers crave the nicotine in cigarettes. Giving it up is much harder than simply changing a habit. Your body has to stop craving the nicotine. It is hard to quit, but you can do it. There are many tools that people use to quit smoking. You may find that combining tools works best for you. There are several steps to quitting. First you get ready to quit. Then you get support to help you. After that, you learn new skills and behaviors to become a nonsmoker. For many people, a necessary step is getting and using medicine. Your doctor will help you set up the plan that best meets your needs. You may want to attend a smoking cessation program to help you quit smoking. When you choose a program, look for one that has proven success. Ask your doctor for ideas. You will greatly increase your chances of success if you take medicine as well as get counseling or join a cessation program. Some of the changes you feel when you first quit tobacco are uncomfortable. Your body will miss the nicotine at first, and you may feel short-tempered and grumpy. You may have trouble sleeping or concentrating. Medicine can help you deal with these symptoms. You may struggle with changing your smoking habits and rituals. The last step is the tricky one: Be prepared for the smoking urge to continue for a time. This is a lot to deal with, but keep at it. You will feel better. Follow-up care is a ramirez part of your treatment and safety. Be sure to make and go to all appointments, and call your doctor if you are having problems. It's also a good idea to know your test results and keep a list of the medicines you take. How can you care for yourself at home? Ask your family, friends, and coworkers for support. You have a better chance of quitting if you have help and support. Join a support group, such as Nicotine Anonymous, for people who are trying to quit smoking. Consider signing up for a smoking cessation program, such as the [place] [employer]'s [place] from Smoking program. Get text messaging support. Go to the website at www.smokefree.gov to sign up for the SmokefreeTXT program. Set a quit date. Pick your date carefully so that it is not right in the middle of a big deadline or stressful time. Once you quit, do not even take a puff. Get rid of all ashtrays and lighters after your last cigarette. Clean your house and your clothes so that they do not smell of smoke. Learn how to be a nonsmoker. Think about ways you can avoid those things that make you reach for a cigarette. ? Avoid situations that put you at greatest risk for smoking. For some people, it is hard to have a drink with friends without smoking. For others, they might skip a coffee break with coworkers who smoke. ? Change your daily routine. Take a different route to work or eat a meal in a different place. Cut down on stress. Calm yourself or release tension by doing an activity you enjoy, such as reading a book, taking a hot bath, or gardening. Talk to your doctor or pharmacist about nicotine replacement therapy, which replaces the nicotine in your body. You still get nicotine but you do not use tobacco. Nicotine replacement products help you slowly reduce the amount of nicotine you need. These products come in several forms, many of them available gsvl-dkf-[id number]: ? Nicotine patches ? Nicotine gum and lozenges ? Nicotine inhaler Ask your doctor about bupropion (Wellbutrin) or varenicline (Chantix), which are prescription medicines. They do not contain nicotine. They help you by reducing withdrawal symptoms, such as stress and anxiety. Some people find hypnosis, acupuncture, and massage helpful for ending the smoking habit. Eat a healthy diet and get regular exercise. Having healthy habits will help your body move past its craving for nicotine. Be prepared to keep trying. Most people are not successful the first few times they try to quit. Do not get mad at yourself if you smoke again. Make a list of things you learned and think about when you want to try again, such as next week, next month, or next year. Where can you learn more? Log into your personal health record on https://Teramindt.[employer]anz and enter Y522 in the Education box to learn more about Stopping Smoking: Care Instructions. Current as of: April 14, 2018 Content Version: 12.20059496-0135 [employer]. Care instructions adapted under license by your healthcare professional. If you have questions about a medical condition or this instruction, always ask your healthcare professional. [employer] disclaims any warranty or liability for your use of this information. Learning About Benefits From Quitting Smoking How does quitting smoking make you healthier? If you're thinking about quitting smoking, you may have a few reasons to be smoke-free. Your health may be one of them. When you quit smoking, you lower your risks for cancer, lung disease, heart attack, stroke, blood vessel disease, and blindness from macular degeneration. When you're smoke-free, you get sick less often, and you heal faster. You are less likely to get colds, flu, bronchitis, and pneumonia. As a nonsmoker, you may find that your mood is better and you are less stressed. When and how will you feel healthier? Quitting has real health benefits that start from day 1 of being smoke-free. And the longer you stay smoke-free, the healthier you get and the better you feel. The first hours After just 20 minutes, your blood pressure and heart rate go down. That means there's less stress on your heart and blood vessels. Within 12 hours, the level of carbon monoxide in your blood drops back to normal. That makes room for more oxygen. With more oxygen in your body, you may notice that you have more energy than when you smoked. After 2 weeks Your lungs start to work better. Your risk of heart attack starts to drop. After 1 month When your lungs are clear, you cough less and breathe deeper, so it's easier to be active. Your sense of taste and smell return. That means you can enjoy food more than you have since you started smoking. Over the years After 1 year, your risk of heart disease is half what it would be if you kept smoking. After 5 years, your risk of stroke starts to shrink. Within a few years after that, it's about the same as if you'd never smoked. After 10 years, your risk of dying from lung cancer is cut by about half. And your risk for many other types of cancer is lower too. How would quitting help others in your life? When you quit smoking, you improve the health of everyone who now breathes in your smoke. Their heart, lung, and cancer risks drop, much like yours. They are sick less. For babies and small children, living smoke-free means they're less likely to have ear infections, pneumonia, and bronchitis. If you're a woman who is or will be someday, quitting smoking means a healthier . Children who are close to you are less likely to become adult smokers. Where can you learn more? Log into your personal health record on [email or web address] and enter O319 in the Education box to learn more about Learning About Benefits From Quitting Smoking. Current as of: April 14, 2018 Content Version: [id number] [employer]. Care instructions adapted under license by your healthcare professional. If you have questions about a medical condition or this instruction, always ask your healthcare professional. [employer] disclaims any warranty or liability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
== END 2024-07-16 12:53 | disposition home or self-care (01) | DRG 663 ==
LOC: ED 17:10 → PCU 07-15 07:12
PROVIDERS: Admitting Provider Internal Medicine; Emergency Provider Emergency Medicine; Visit Provider Internal Medicine
DX: D50.9 Iron deficiency anemia, unspecified (principal); E04.2 Nontoxic multinodular goiter; F17.210 Nicotine dependence, cigarettes, uncomplicated; J98.11 Atelectasis; N10 Acute pyelonephritis; Z91.198 Patient's noncompliance with other medical treatment and regimen for other reason; E03.9 Hypothyroidism, unspecified; Z79.899 Other long term (current) drug therapy
CPT/HCPCS: 36415; 36430; 71045; 71275; 74177; 76536; 80053; 80074; 80307; 81001; 82274; 82607; 82728; 82746; 83540; 83550; 83605; 83735; 84100; 84439; 84443; 84703; 85014; 85018; 85025; 85379; 85610; 85730; 86803; 86850; 86900; 86901; 86920; 86922; 87040; 87449; 87522; 93005; 93306; 96361; 96365; 96366; 96367; 96376; 97802; 99221; 99285; P9016; Q9967; A4216; G0378; J2916